=== PATIENT | male | born 1955 | race Caucasian/White ===

== ENCOUNTER 2024-10-15 17:08 | Inpatient (IN) | payer MEDICARE, MEDICAID, SELFPAY ==
[2024-10-15] VITALS (29 sets, daily range): BP systolic 54–137; BP diastolic 28–80; PULSE 47–66; RESP 11–22; TEMP 36.1–36.8; O2SAT 88–100; BMI 24.3
--- NOTE | 2024-10-15 17:10 | PD.EDWEAK ---
ED Weakness RME/HPI General Chief complaint: Weakness Stated complaint: WEAKNESS Time Seen by Provider: 10/15/24 17:29 Arrival date/time: 10/15/24 17:08 RME / HPI RME / HPI Narrative: 69 year old male with history of CAD, open heart surgery , hypertension, hyperlipidemia, asthma, BPH presents to the ED BIBA from home for evaluation of weakness today. Per medics, daughter on scene found patient to be very pale and weak. Patient additionally reported feeling short of breath and took two puffs of his Albuterol inhaler. On their arrival blood pressure was 58/20, prehospital BS 109. No radial pulses were palpable. An EKG was performed showing no STEMI. Per medics, daughter on scene reported the patient was evaluated at [facility] 5 days ago for head injury where he was admitted and signed out yesterday. Patient denies fevers, chills, chest pain, abdominal pain, n/v/d, or urinary symptoms. Related Data Home Medications ?Medication ?Instructions ?Recorded ?Confirmed alprazolam 1 mg tablet 2 mg PO TID ##0 12/26/13 08/18/23 carvedilol 3.125 mg tablet 3.125 mg PO BID 30 days ##0 12/26/13 08/18/23 dicyclomine 20 mg tablet (Bentyl) 10 mg PO QIDPRN #0 tabs 03/21/14 08/18/23 zolpidem 10 mg tablet 10 mg PO HS PRN Insomnia 12/16/17 08/18/23 montelukast 10 mg tablet 10 mg PO QDAY 04/13/19 08/18/23 atorvastatin 40 mg tablet (Lipitor) 40 mg PO QDAY 05/14/22 08/18/23 benazepril 40 mg tablet 40 mg PO BID 05/14/22 08/18/23 clopidogrel 75 mg tablet 75 mg PO DAILY 05/14/22 08/18/23 hydrocodone 10 mg-acetaminophen 1 tab PO QID 05/14/22 08/18/23 325 mg tablet pantoprazole 40 mg tablet,delayed 40 mg PO QDAY 05/14/22 08/18/23 release tizanidine 4 mg tablet 4 mg PO BID 05/14/22 08/18/23 gabapentin 300 mg capsule 300 mg PO BID 08/28/22 08/18/23 sumatriptan succinate 100 mg 100 mg PO Q2H PRN migraines 01/18/23 08/18/23 tablet (Imitrex) Previous Rx's ?Medication ?Instructions ?Recorded ipratropium 0.5 mg-albuterol 3 mg 3 ml inhalation Q6H PRN sob #180 mL 09/26/20 (2.5 mg base)/3 mL nebulization soln Allergies Allergy/AdvReac Type Severity Reaction Status Date / Time metoclopramide Allergy Mild Dizziness, Verified 08/18/23 12:04 FEELS WEIRD Review of Systems Review of Systems Narrative Review of Systems: GEN: No fever, no chills, no weight loss EYES: No discharge, no visual changes, no pain HEENT: No ear pain, no congestion, no sore throat PULM: + shortness of breath CV: No chest pain, no palpitations GI: No nausea, no vomiting, no diarrhea, no pain, no constipation : No frequency, no urgency and no dysuria MUSC/SKEL No joint pain, no back pain SKIN: No rash NEURO: +generalized weakness, no headache Past Medical History Past Medical History NEUROLOGIC: Positive Neurological Disorders, Migraine and Head Trauma CARDIAC: Positive Cardiac Disorders, Myocardial Infarction, Coronary Artery Disease, Hypercholesterolemia and Hypertension RESPIRATORY: Positive Asthma GASTROINTESTINAL: Positive Gastrointestinal Disorders and Hiatal Hernia MUSCULOSKELETAL: Positive Musculoskeletal Disorders and Degenerative Joint Disease ENT: Positive Head Trauma PSYCHO/SOCIAL: Positive Depression and Anxiety OTHER HISTORY: Positive Falls Family History FAMILY HISTORY: Positive Family Respiratory Disorders and Family Cardiac Disorders Surgical History SURGICAL: Positive Cardiac Surgery, Open Heart Surgery, Coronary Artery Bypass Graft, Coronary Stent, Cardiac Catheterization and Joint Replacement; Negative Thyroidectomy or Ear Surgery Social History SMOKING STATUS: Never smoker SUBSTANCE USE: does not use ED Exam Narrative Physical exam: GENERAL APPEARANCE: Well hydrated, well nourished. VITALS: Hypotensive 64/41. All vitals were reviewed and the pulse ox is 100% on 4L nasal cannula which is normal according to my interpretation. HEENT: Normocephalic, sutures on scalp, raccoon eyes, EOMI, EACs are patent. There is no bulge or retraction. Throat without erythema or exudate. Moist oromucosa. No jaundice NECK: Supple, no JVD or bruits. CARDIOVASCULAR: Heart regular without S3-S4 or murmur. No rubs or gallops. LUNGS/CHEST: Clear to auscultation bilaterally. No rales, rhonchi, or wheezing. Normal inspection. ABDOMEN: Soft, nontender, with normal bowel sounds. No pulsatile masses. No rebound, rigidity, or guarding. No incarcerated hernia. Normal inspection and palpation. RECTAL: Exam performed in presence of female nurses. Stool is brown and guaiac negative. EXTREMITIES: Normal inspection and palpation. No edema, clubbing, or cyanosis. Intact CSM SKIN: Warm and dry without rashes. Normal inspection. MUSCULOSKELETAL: Normal inspection. No gross deformity, full ROM all extremities NEURO: Alert and oriented x3. Cranial nerves II through XII grossly intact. There are no other motor or sensory deficits noted. PSYCHIATRIC: Normal mood and affect. No psychosis. Course Quality Measures none Orders Category Date Time Status Bedside COVID-19 Antigen Test NOW Care 10/15/24 18:11 Active Bedside Influenza A&B Antigen Test NOW Care 10/15/24 18:11 Active Ball [Urinary Catheter] QS Care 10/15/24 18:05 Active Saline [Insert IV] NOW Care 10/15/24 18:[address] head/brain wo con Stat Exams 10/15/24 18:11 Ordered XR chest 1V portable Stat Exams 10/15/24 17:32 Ordered ABO/RH Type Stat Lab 10/15/24 17:33 Ordered Alcohol, Blood Medical Stat Lab 10/15/24 17:33 Ordered BNP [B-Type Natriuretic Peptide] Stat Lab 10/15/24 17:33 Ordered Blood Culture (Lab) Stat Lab 10/15/24 17:34 Ordered CBC Stat Lab 10/15/24 17:33 Ordered CMP [Comprehensive Metabolic Panel] Stat Lab 10/15/24 17:33 Ordered Drug Screen,Urine Stat Lab 10/15/24 17:37 Completed Lactic Acid [Lactate (Lactic Acid)] Stat Lab 10/15/24 17:34 Ordered PT [Prothrombin Time with INR] Stat Lab 10/15/24 17:35 Ordered PTT [Partial Thromboplastin Time] Stat Lab 10/15/24 17:35 Ordered Procalcitonin Stat Lab 10/15/24 17:34 Ordered Troponin I Stat Lab 10/15/24 17:33 Ordered UA, C/S IF [Urinalysis, C/S if Indicated] Stat Lab 10/15/24 17:37 Completed Norepinephrine/D5W 8mg/250ml [Levophed in D5W 8mg/250ml Med 10/15/24 17:16 Discontinued ] 8 mg in 250 ml IV .STK-MED Norepinephrine/D5W 8mg/250ml [Levophed in D5W 8mg/250ml Med 10/15/24 17:23 Active ] 8 mg in 250 ml IV 0.05 mcg/kg/min Norepinephrine/NS 16mg/250ml [Levophed in NS 16mg/250ml Med 10/15/24 17:15 Discontinued ] 0 mg in 0 ml IV .STK-MED Sodium Chloride 0.9% 1000 ml [Ns] 1,000 ml Med 10/15/24 17:33 Active IV 999 mls/hr Vital Signs Vital signs: Vital Signs Pulse Rate 66 10/15/24 17:23 Respiratory Rate 16 10/15/24 17:23 Blood Pressure 64/41 L 10/15/24 17:23 Pulse Oximetry (%) 98 10/15/24 17:23 Oxygen Delivery Method Room Air 10/15/24 17:23 Weakness MDM Narrative MDM Narrative:: ICelia am scribing for and in the presence of Dr. Kemp. The patient came in with extremely low blood pressure. And we are giving the patient IV fluid. After 1 L of Ringer lactate and concurrently with Levophed drip, the blood pressure at 6 PM was 116/63, O2 saturation of 91% on 4 L nasal cannula and the patient comfortably laying flat. With a heart rate of about 80 bpm normal sinus rhythm on the monitor. 6 PM still pending labs, chest x-ray, EKG, paperwork information from [facility], and the patient responded to treatment, the patient is stable, improved and is signed out to Dr. Potter 1800: Patient signed out to Dr. Potter pending labs, cxr, and final disposition. Critical care time is approximately 35 minutes excluding any procedure. The high probability of sudden, clinically significant deterioration in the patient?s condition required the highest level of my preparedness to intervene urgently. The services I provided to this patient were to treat and/or prevent clinically significant deterioration. Services included the following: chart data review, reviewing nursing notes and/or old charts, documentation time, eco industrial development consultant collaboration regarding findings and treatment options, medication orders and management, direct patient care, vital sign assessments and ordering, interpreting and reviewing diagnostic studies and lab tests. Aggregate critical care time includes only time during which I was engaged in work directly related to the patient?s care, as described above, whether at bedside or elsewhere in the Emergency Department. It did not include time spent performing other reported procedures or the services of residents, students, nurses or physician assistants. Patient data External records reviewed:: [facility] previous records (I reviewed H&P on 08/18/2023 ) and EMS form Clinical information provided by:: patient and EMS (Provided prehospital course ) Social determinants that could affect healthcare access:: none Patient has the following chronic illnesses:: Recent head injury and admitted at [facility] 5 days ago and discharged yesterday. CAD, open heart surgery , hypertension, hyperlipidemia, asthma, BPH How is presenting disease/condition affected by chronic disease/condition?: exacerbated by Evaluation data The following diagnostics were reviewed and interpreted by me:: lab results and radiology exam(s) Lab and/or radiology exams considered but not ordered:: None Interpretation Summary: As noted above Medications / Prescriptions Medications or Prescriptions considered but not ordered:: None Medication administrations:: Medication Administration History Norepinephrine/Dextrose (Levophed In D5w 8mg/250ml) 8 mg in 250 mls @ 6.818 mls/hr IV .Q24H PRN; Protocol PRN Reason: PER PROTOCOL Stop: 11/14/24 17:22 Last Titration: 10/15/24 17:45 Dose: 0.13 mcg/kg/min, 17.726 mls/hr Documented By: Titration: 10/15/24 17:40 Dose: 0.11 mcg/kg/min, 14.999 mls/hr Documented By: Titration: 10/15/24 17:35 Dose: 0.09 mcg/kg/min, 12.272 mls/hr Documented By: Titration: 10/15/24 17:30 Dose: 0.07 mcg/kg/min, 9.545 mls/hr Documented By: Admin: 10/15/24 17:25 Dose: 0.05 mcg/kg/min, 6.818 mls/hr Documented By: Sodium Chloride (Ns) 1,000 mls @ 999 mls/hr IV .Q1H1M ONE Stop: 10/15/24 18:33 Last Infusion: 10/15/24 18:08 Dose: 0 mls/hr Documented By: Admin: 10/15/24 17:56 Dose: 999 mls/hr Documented By: VANESSA Discontinued Medications Norepinephrine Bitartrate (Levophed In Ns 16mg/250ml) Confirm Administered Dose 0 mg in 0 mls @ ud IV .STK-MED ONE Stop: 10/15/24 17:16 Last Admin: 10/15/24 17:35 Dose: Not Given Documented By: VANESSA Non-Admin Reason: Duplicate Medication on eMAR Norepinephrine/Dextrose (Levophed In D5w 8mg/250ml) Confirm Administered Dose 8 mg in 250 mls @ ud IV .STK-MED ONE Stop: 10/15/24 17:17 Last Admin: 10/15/24 17:35 Dose: Not Given Documented By: VANESSA Non-Admin Reason: Duplicate Medication on eMAR See above Consultations Consultation(s) initiated? (list below): No Diagnosis Weakness Differential Diagnosis: anemia, hypoglycemia, hypothyroidism, sepsis and dehydration Most likely diagnosis given after review of the tests above:: Acute hypertension Recent head trauma Admission Indicated Admission indicated?: not indicated Explain why admission is indicated or not indicated:: Patient signed out pending work-up. Admission Request Was there a request for admission?: No Disposition Plan Disposition Plan: other (specify) (Patient signed out to Dr. Potter. ) Discharge Plan Plan Disposition Comment: Stable at signout Prescriptions/Referrals Prescriptions/Med Rec: No Action alprazolam 1 MG tablet 2 mg PO TID Qty: 0 Hold Instructions: Resume on 08/19/23. carvedilol 3.125 MG tablet 3.125 mg PO BID 30 Days Qty: 0 dicyclomine [Bentyl] 20 MG tablet 10 mg PO QIDPRN Qty: 0 zolpidem 10 mg Tablet 10 mg PO HS PRN (Reason: Insomnia) Hold Instructions: Resume on 08/19/23. ipratropium-albuterol 0.5 mg-3 mg(2.5 mg base)/3 mL solution for nebulization 3 ml inhalation Q6H PRN (Reason: sob) Qty: 180 0RF benazepril 40 mg tablet 40 mg PO BID Patient Comments: TAKE ONE TABLET BY MOUTH TWICE DAILY FOR BLOOD PRESSURE atorvastatin [Lipitor] 40 mg Tablet 40 mg PO QDAY tizanidine 4 mg tablet 4 mg PO BID Hold Instructions: Resume on 01/19/23. Patient Comments: TAKE ONE TABLET BY MOUTH TWICE DAILY NEEDED FOR MUSCLE SPASM clopidogrel 75 mg tablet 75 mg PO DAILY Hold Instructions: Resume on 08/29/22. Patient Comments: TAKE ONE TABLET BY MOUTH EVERY DAY hydrocodone-acetaminophen 10-325 mg tablet 1 tab PO QID Hold Instructions: Resume on 08/19/23. Patient Comments: TAKE ONE TABLET BY MOUTH EVERY 6 HOURS NEEDED FOR PAIN pantoprazole 40 mg Tablet,Delayed Release (Dr/Ec) 40 mg PO QDAY montelukast 10 mg Tablet 10 mg PO QDAY gabapentin 300 mg capsule 300 mg PO BID Patient Comments: TAKE ONE CAPSULE BY MOUTH TWICE DAILY sumatriptan succinate [Imitrex] 100 mg Tablet 100 mg PO Q2H PRN (Reason: migraines) Rx Instructions: do not exceed 2 doses per 24 hrs Problem List Clinical Impression: Acute hypotension Patient/Caregiver Discharge Instructions Print Language: Macedonian
[2024-10-15] MEDS: Norepinephrine/D5W 8mg/250ml 8 MG/250 ML BAG 6.818 MG IV (17:25)
--- NOTE | 2024-10-15 17:32 | XR_ITS ---
Examination: AP portable semiupright chest single view Technique one AP portable semiupright chest single view Exam date and time: October 15, 2024 1808 hrs. Comparison May 15, 2024 Indications: Shortness of breath today Findings: Normal heart size CABG No pneumonia or pulmonary edema Accentuation basilar bronchovascular markings Impression: Mild basilar bronchitis pattern
[2024-10-15] MEDS: SODIUM CHLORIDE 0.9% 1000 ML 1,000 ML 999 ML IV (17:56)
--- NOTE | 2024-10-15 17:58 | PC.NURSE ---
PATIENT ARRIVE ED WITH COMPLAINT OF GENERALIZED WEAKNESS, PER FAMILY PATIENT WAS AT [facility] YESTERDAY SECONDARY TO DOOR FALLING ON HEAD, PATIENT PRESENTS WITH CIRILO AND LARGE LACERATION TO TOP OF RIGHT SIDE OF HEAD. PATIENT WITH BRUISING AND BLACK EYES SECONDARY TO INJURY. PATIENT ALERT AND ORIENTED AT TIME OF ARRIVAL, ABLE TO ANSWER APPROPRIATE QUESTIONS. DR. NAJERA AT BEDSIDE.
[2024-10-15 18:10] LABS: Amphetamine/Methamp Scrn,U Negative (Negative); Barbiturate Screen,Urine Negative (Negative); Benzodiazepines Screen,Urine Positive (Negative); Benzoylecgonine Screen, Ur Negative (Negative); Fentanyl Screen,Urine Positive (Negative); Opiate Screen,Urine Positive (Negative); THC Screen,Urine Negative (Negative)
--- NOTE | 2024-10-15 18:10 | EDNOTE_ITS ---
Emergency Room Addendum <Miri Groves - Last Filed: 10/15/24 20:37> Addendum Narrative: 1800: Care assumed from Dr. Kemp the previous shift emergency physician. Past medical, surgical, social and family history reviewed. Vitals and home medications reviewed. Results and treatment plan discussed. I will assume the care of the patient at this time and will follow the patient, pending work-up. Please refer to the emergency department record for history and examination from initial visit. I reviewed all diagnostic test results. My interpretation of the EKG is My interpretation of the chest x-ray is My review of the CT reports are Blood tests and urine tests At this point, diagnoses include Treatment here included 2027: Spoke with Dr. Reyes, neurosurgeon from [facility], who states the patient does not need to be transferred, as they will not perform any interventions. Recommends placing a patient in a brace. 2033: Discussed case with [Dr. Leon, the ICU resident] from Hospitalist service regarding admission. Discussed patients ED course, exam findings, labs, and radiology results. The Hospitalist [agrees] to accept the patient for admission. Lauri Potter MD <Lauri Potter MD - Last Filed: 10/15/24 21:12> Addendum Narrative: 1800: Care assumed from Dr. Kemp the previous shift emergency physician. Past medical, surgical, social and family history reviewed. Vitals and home medications reviewed. Results and treatment plan discussed. I will assume the care of the patient at this time and will follow the patient, pending work-up. Please refer to the emergency department record for history and examination from initial visit. I reviewed all diagnostic test results. At this point, diagnoses include: Hypotension needing Levophed, acute respiratory failure with hypoxia, T1/T2/T6 and L1/L2 vertebral fractures, severe anemia, scalp laceration, facial contusion, and elevated lactic acid. Treatment here included IV fluid and Levophed drip and Rocephin and famotidine and Protonix and octreotide. 2027: Spoke with Dr. Reyes, neurosurgeon from [facility], who states the patient does not need to be transferred, as they will not perform any interventions. Re commends placing a patient in a brace. Patient already has the brace. Daughter will bring it from home. 2033: Discussed case with [Dr. Leon, the ICU resident] from ICU service regarding admission. Discussed patients ED course, exam findings, labs, and radiology results. The ICU [agrees] to accept the patient for admission. Lauri Potter MD
--- NOTE | 2024-10-15 18:11 | XR_ITS ---
Examination: CT abdomen with intravenous contrast CT pelvis with intravenous contrast 2-D coronal reconstructions 2-D sagittal reconstructions Date and time of exam:October 15, 2024 1835 hrs. Indications: Injury to the abdomen today, abdomen pain. CTDI: vol (mGy) 14.3 DLP: (mGycm) 887 Technique: Multiple axial sections of the abdomen and pelvis have been obtained. 64 slice high-resolution scanner used. 3 mm axial sections have been obtained, post intravenous injection 100 cc Isovue-370 2-D sagittal, coronal reconstructions obtained. Low dose protocols were performed. One or more of the following dose reduction techniques were used; automated exposure control, adjustment of the mA and/or KV according to patient size, use of iterative reconstruction technique. Findings: No focal liver or splenic or renal laceration Cholelithiasis Aorta intact no free blood in the abdomen Negative for pneumoperitoneum No bowel obstruction Colonic diverticulosis Urinary bladder intact with wall thickening hips, bones of the pelvis intact Fracture left transverse process L2 Acute appearing compression fracture L1, reduction in height 60% Impression: No abdominal parenchymal laceration No free blood in the abdomen or pelvis Fracture left transverse process L2 Acute appearing severe compression fracture L1 with adequate alignment
--- NOTE | 2024-10-15 18:12 | EKG_ITS ---
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
--- NOTE | 2024-10-15 18:12 | XR_ITS ---
Examination: CT cervical spine without contrast 2-D sagittal reconstructions 2-D coronal reconstructions 3-D reconstructions. Exam date and time:October 15, 2024 1830 hrs. Comparison April 06, 2023 Indications: Injury to the neck today with a large tumor, neck pain CTDI:vol (mGy) 12.46 DLP: (mGycm) 311 Technique: Multiple 2 mm axial sections of the cervical spine have been obtained. The coronal and sagittal reconstructions have been obtained. 3-D reconstructions have been obtained. Low dose protocols were performed. One or more of the following dose reduction techniques were used; automated exposure control, adjustment of the mA and/or KV according to patient size, use of iterative reconstruction technique. Findings: Axial sections demonstrate intact base of the skull. C1 exhibit satisfactory relationship to the odontoid. No acute cervical vertebral body fracture seen. Alignment posterior spinous processes satisfactory Acute fractures T1, T2, chip fractures off the anterior superior margins both vertebral bodies Retropulsion of the posterior superior margin of the T1 vertebral body 2 mm Incidental note 21 mm cavitary lesion in the right upper lobe Impression: No acute cervical fracture. Acute fractures mild to moderate T1, mild T2 Retropulsion posterior superior margin of the T1 vertebral body [address] scan thoracic spine without contrast follow-up
--- NOTE | 2024-10-15 18:12 | XR_ITS ---
Examination: CTA chest with intravenous contrast 2-D reconstructions 3-D reconstructions, vascular Date and time of exam: October 15, 2024 1835 hrs. Indications: Injury to the chest 5 days ago, chest pain CTDI: vol (mGy) 28.7 DLP: (mGycm) 587 Technique: Multiple axial sections of the thorax have been obtained. 3 mm slice thickness, from below the hemidiaphragms to above the apices of the lungs. Mediastinal and lung density settings have been obtained. 2-D sagittal and coronal reconstructions. 3-D angiographic renderings, 3-D volume renderings, 3D post processing, vascular maximum intensity projections obtained. Contrast administered is 100 cc Isovue-370. Low dose protocols were performed. One or more of the following dose reduction techniques were used; automated exposure control, adjustment of the mA and/or KV according to patient size, use of iterative reconstruction technique. Findings: AP dimension ascending thoracic aorta 4 cm, thoracic aorta intact No pulmonary artery emboli No hemopericardium COPD with multiple areas of airspace destruction Multiloculated cavitary lesion in the right upper lobe 26 mm No pneumothorax pulmonary contusion or hemothorax Acute fractures T1, T2 described on the CT cervical spine report Acute fracture T6, reduction in height 40% adequate alignment Chronic fracture T8, sternum ribs appear intact Impression: Mild aneurysmal dilatation ascending thoracic aorta Thoracic aorta pulmonary arteries intact No hemopericardium, pneumothorax or pulmonary contusion Acute fractures T1, T2, T6 as above
--- NOTE | 2024-10-15 18:12 | XR_ITS ---
Examination: CT maxillofacial, without intravenous contrast. 2-D sagittal reconstructions. 3-D reconstructions. Date and time of exam:October 15, 2024 1828 hrs. Indications: A large door fell on the patient's face today, facial pain CTDI: vol (mGy):34.40 DLP: (mGycm):764 Technique: Multiple axial images of maxillofacial region, 3.0 mm slice thickness. 2-D sagittal and coronal reconstructions. 3-D reconstructions. Low dose protocols were performed. One or more of the following dose reduction techniques were used; automated exposure control, adjustment of the mA and/or KV according to patient size, use of iterative reconstruction technique. Findings: Frontal bone frontal sinuses intact Orbital rims intact No depression zygomatic arches Pterygoid plates maxilla and the mandible intact No nasal bone fracture Impression: No acute facial fracture.
--- NOTE | 2024-10-15 18:12 | XR_ITS ---
Examination: CT brain head without contrast. 2-D sagittal coronal reconstructions Date and time of exam:October 15, 2024 1826 hrs. Comparison April 06, 2023 Indications: A large door fell on the patient's head 5 days ago, with persistent head pain and altered mental status today CTDI: vol (mGy):56.2 DLP: (mGycm):1172 Technique: Multiple CT axial sections of the brain have been obtained, 5 mm slice thickness. Contrast has not been administered. 2-D sagittal, coronal reconstructions have been obtained Low dose protocols were performed. One or more of the following dose reduction techniques were used; automated exposure control, adjustment of the mA and/or KV according to patient size, use of iterative reconstruction technique. Findings: No significant ventricular enlargement. Intra-axial or extra-axial hemorrhage density is not seen. No mass effect or midline shift Basal cisterns are not remarkable. Fourth ventricle is midline. Cranial vault intact. Impression: Negative for acute hemorrhage, mass effect or midline shift
[2024-10-15 18:15] LABS: Lactate (Lactic Acid) 2.2 mMol/L (0.4-2.0)
[2024-10-15 18:16] LABS: Basophils # (Auto) 0.1 Thou/mm3 (0.0-0.2); Basophils % (Auto) 1 % (0-2.5); Eosinophils # (Auto) 0.5 Thou/mm3 (0.0-0.5); Eosinophils % (Auto) 3 % (0-10); Lymphocytes % (Auto) 12 % (10-50); Mean Corpuscular Volume 88 fL (80-100); Monocytes % (Auto) 10 % (0-12); Nucleated Red Blood Cell % 0 /100 WBC (0)
[2024-10-15 18:17] LABS: Hematocrit 25.1 % (41.0-53.0); Immature Granulocytes % (Auto) 2 % (0-0); Immature Granulocytes Auto 0.22 Thou/mm3 (0.00-0.00); Lymphocytes # (Auto) 1.6 Thou/mm3 (1.0-4.8); Mean Corpuscular HGB Conc 33.1 g/dl (31.0-37.0); Monocytes # (Auto) 1.3 Thou/mm3 (0.0-0.8); Neutrophils # (Auto) 9.7 Thou/mm3 (1.8-7.7); Neutrophils % (Auto) 73 % (37-80); Nucleated Red Blood Cell # 0.05 Thou/mm3 (0.00-0.00); Platelet Count 245 Thou/mm3 (140-440); RDW Standard Deviation 47.1 fL (35.1-43.9); Red Blood Count 2.86 Miln/mm3 (4.50-5.90); White Blood Count 13.4 Thou/mm3 (3.8-10.6)
[2024-10-15 18:18] LABS: Hemoglobin 8.3 g/dL (13.5-16.0)
[2024-10-15 18:38] LABS: B-Type Natriuretic Peptide 44 pg/mL (0-100)
[2024-10-15 18:47] LABS: Alanine Aminotransferase 215 U/L (10-49); Albumin, Serum 3.4 gm/dL (3.4-4.8); Albumin/Globulin Ratio 1.9 (1.2-2.2); Alcohol, Blood Medical < 10.0 mg/dL (0-10.0); Alkaline Phosphatase 50 U/L (46-116); Anion Gap 9 (7-16); Aspartate Amino Transferase 74 U/L (0-34); BUN/Creatinine Ratio 19 Ratio (12-20); Bilirubin,Total 0.8 mg/dL (0.3-1.2); Blood Urea Nitrogen 42 mg/dL (9-23); Calcium (Corrected) 8.5 mg/dL (8.5-10.1); Carbon Dioxide 20.7 mMol/L (20.0-31.0); Chloride 103 mMol/L (98-107); Creatinine (Component) 2.2 mg/dL (0.6-1.3); Estimated Creatinine Clearance 30.2 mL/min (>60); Globulin 1.8 gm/dL (2.3-3.5); Glucose 104 mg/dL (74-106); Osmolality,Calculated 276 (275-295); Potassium 4.3 mMol/L (3.4-5.1); Procalcitonin 0.37 ng/ml (0.0-0.49); Sodium 133 mMol/L (136-145); Total Protein 5.2 gm/dL (5.7-8.2); Troponin I < 0.020 ng/mL (0.0-0.045); eGFR 31 See Note
[2024-10-15 18:56] LABS: INR 1.2 (0.9-1.3); Partial Thromboplastin Time 22.5 Seconds (22.0-36.0); Prothrombin Time 12.7 Seconds (9.0-12.2)
[2024-10-15 18:58] LABS: D-Dimer 1890 ng/mL (<600)
[2024-10-15 19:05] LABS: Base Excess -2 (-3-3); HCO3 23 mEq/L (20-26); Inspired O2, VO2 Liters 5 L/min; O2 Saturation 99 % (91-98); PCO2 37 mmHg (32.0-48.0); PO2 106 mmHg (83-108); pH, Arterial 7.39 (7.35-7.45)
[2024-10-15 19:10] LABS: Allen Test Performed/OK; Puncture Site Right Radial
--- NOTE | 2024-10-15 20:17 | PC.NURSE ---
[facility] FAXED PAPERWORK FOR POSSIBLE TRANSFER, SPOKE WITH JOSHUA
[2024-10-15 21:11] LABS: Reflex Lactate? Y
[2024-10-15] MEDS: ONDANSETRON INJ 2 MG/ML INJ 2 ML 4 MG IV (21:14)
[2024-10-15] MEDS: MORPHINE SULF INJ 10 MG/ML VIAL 4 MG IVP (21:21)
[2024-10-15 21:33] LABS: Respiratory Syncytial Virus Ag Negative (Negative)
[2024-10-15] MEDS: FAMOTIDINE INJ 10 MG/ML VIAL 2 ML 20 MG IVP (21:37)
[2024-10-15] MEDS: cefTRIAXone/D5w 1gm IV premix 50 ML IV (21:37)
[2024-10-15] MEDS: PANTOPRAZOLE INJ 40 MG VIAL 80 MG IV (21:48)
[2024-10-15] MEDS: OCTREOTIDE ACET INJ 50 mCg/ML VIAL IV (21:58)
[2024-10-15] MEDS: OCTREOTIDE ACET INJ 1,000 MCG in SODIUM CHLORIDE 0.9% 100 ML 5.1 MCG IV (21:58)
[2024-10-15 22:12] LABS: Influenza A Ag Negative; Influenza B Ag Negative
[2024-10-16] VITALS (49 sets, daily range): BP systolic 107–158; BP diastolic 58–91; PULSE 52–78; RESP 9–22; TEMP 36.7–37.2; O2SAT 78–100; BMI 22.3
[2024-10-16] MEDS: ALPRazoLAM 0.25 MG TABLET PO
[2024-10-16] MEDS: RINGERS LACTATED 1000 ML 1,000 ML 999 ML IV (00:06)
[2024-10-16 00:07] LABS: Lactic Acid, 3 HR 4.4 mMol/L (0.4-2.0)
[2024-10-16] MEDS: CEFEPIME INJ 2 GM in SODIUM CHLORIDE 0.9% (P) 50 ML IV ×2 (00:07→09:10)
--- NOTE | 2024-10-16 00:07 | ESHP_ITS ---
<Statement entered by Frankie Myrick MD - 10/16/24 22:16> I Frankie Myrick MD reviewed the note and agree with the resident's assessment & plan with exceptions as below. I have personally reviewed labs, imaging, home meds/prior records, examined the patient, formulated and discussed management plan with the IM team. 69-year-old M with Hx of CAD, metabolic syndrome, asthma, head injury a week ago admitted at [facility] and was discharged to a SNF presented to ED with progressively worsening shortness of breath and generalized weakness. Patient noted to be hypertensive on presentation labs significant for leukocytosis, microcytic anemia, elevated creatinine and lactic acidosis with transaminitis. Further imaging did reveal T1-T2 fracture and cavitary lung lesion. Admitted for potential septic shock due to pneumonia with concern for fungal/TB. Obtaining sputum AFB, cocci serology, beta D glucan, respiratory and blood cultures, fungal blood cultures, echocardiogram. Will start on empiric antibiotic and antifungal with cefepime and doxycycline along with fluconazole for potential coccidioidomycosis. Patient does not have any trouble swallowing, chest pain or abdominal pain. Conservatively manage T1-T2 fracture likely harbored during recent fall with head injury. Obtain medical records from [facility]. Administer 30 mL/kg IV fluids, continue vasopressor support trending lactate. Documentation for date of: 10/16/24 HPI History of Present Illness History of present illness: 69-year-old man with past medical history of CAD status post CABG , HTN, HDL, asthma, BPH who came to the ED brought by ambulance secondary to weakness. Patient is poor historian for which formation was taken per chart review her nurse at the ED. Apparently per patient daughter today in the afternoon the patient was pale, diaphoretic, complaining of shortness of breath and complaining of generalized weakness for which they decided to come to the ED. Per patient daughter patient was admitted to [facility] 5 days ago secondary to a head injury and was discharged yesterday and at the hospital he received multiple blood transfusions due to severe bleeding from the scalp. At the bedside patient denied fever chills, chest pain, headache, nausea, vomiting, dysuria, cough or any other associated symptom at the moment he only stated that he needs to take his benzodiazepines because if he does not take it he will have seizures. ED course: Initial vitals: BP 64/41 HR 66 RR 16 afebrile SpO2 98% on room air Pertinent labs: Leukocytosis 13.4, acute normocytic anemia Hgb 8.3 HCT 25.1%, ABGs were unremarkable, creatinine 2.2, BUN 42, lactic acid 2.2, D-dimer was elevated 1890, transaminitis AST 74 ALT 215, alk phos with a normal limits, troponins were negative BNP 44, Pro-Pillo 0.37, U tox was positive for opiates fentanyl and benzodiazepines. Imaging: Chest x-ray showed mild basilar bronchitis pattern, CT abdomen pelvis showed fracture of left transverse process of L2 as well as acute appearing severe compression fracture of L1 with adequate alignment, cervical spine CT showed acute fractures mild to moderate T1-T2, retropulsion posterior superior margin of T1 vertebral body 2 mm, Chest CTA showed multiloculated cavitary lesions in the right upper lobe 26 mm negative for pulmonary emboli, acute fracture of T1, T2, T6 with reduction in 40% with adequate alignment and chronic fracture of T8, mild aneurysmal dilation of ascending thoracic aorta, face CT negative, head CT was negative for acute hemorrhage, mass or midline shift, EKG sinus rhythm heart rate 61 [address]Tc [address] changes or T wave inversions per my interpretation At the ED the patient received: IV octreotide, Levophed gtt, IV Protonix 80 mg x 1, 1 L bolus NS x 1, IV morphine 4 mg IV x 1, famotidine 20 mg IV x 1, octreotide drip, IV ceftriaxone x 1, ED physician contacted neurosurgeon at [facility] due to findings in the CT related to T1-T2 and T6 fractures for transfer and they stated that the patient at this time does not need to be transferred and they would not perform any interventions and they recommended to place the patient in a brace for which family member daughter will bring him to the ED. Patient was admitted to the ICU for further treatment and management of septic shock. Review of Systems Review of Systems Systems Reviewed: All systems reviewed, normal except as documented Past Medical History Past Medical History NEUROLOGIC: Positive Neurological Disorders, Migraine and Head Trauma CARDIAC: Positive Cardiac Disorders, Myocardial Infarction, Coronary Artery Disease, Hypercholesterolemia and Hypertension RESPIRATORY: Positive Asthma GASTROINTESTINAL: Positive Gastrointestinal Disorders and Hiatal Hernia MUSCULOSKELETAL: Positive Musculoskeletal Disorders and Degenerative Joint Disease ENT: Positive Head Trauma PSYCHO/SOCIAL: Positive Depression and Anxiety OTHER HISTORY: Positive Falls Family History FAMILY HISTORY: Positive Family Respiratory Disorders and Family Cardiac Disorders Surgical History SURGICAL: Positive Cardiac Surgery, Open Heart Surgery, Coronary Artery Bypass Graft, Coronary Stent, Cardiac Catheterization and Joint Replacement; Negative Thyroidectomy or Ear Surgery Social History SMOKING STATUS: Never smoker SUBSTANCE USE: does not use Exam Vital Signs Temp Pulse Resp BP Pulse Ox O2 Del Method O2 Flow Rate 98.2 F 60 16 97/72 100 Nasal Cannula 4 10/15/24 22:02 10/15/24 23:18 10/15/24 23:18 10/15/24 23:18 10/15/24 23:18 10/15/24 23:18 10/15/24 23:18 Narrative Exam General: No acute distress, dishevel, alert, interactive, AOx3, saturating 100% on 4 L per nasal cannula HEENT: NC/AT, PERRL, EOMI, Good conjugate gaze, dry mucous membranes, multiple bruises on periorbital and facial area scalp laceration with krunal on the right temporoparietal region Neck: Supple, No masses, No adenopathy, carotid pulse 2+ bilaterally without bruits, No JVD Chest: Symmetrical, atraumatic, and with equal expansion , Nontender on palpation no deformity and no crepitus. CVS: S1 and S2 present, Regular rate and rhythm, No murmurs, rubs or gallops perceived during auscultation. Lungs: Normal respiratory effort, CTAB, no wheezing, rhonchi or rales perceived during auscultation, No intercostal or subcostal retraction. Abdomen : Soft, no tenderness to palpation, no guarding ,no rebound, +BS Extremities: No edema, warm well perfused, normal tone and ROM, strength and sensation intact, cap refill less than 2, +2 dp equal bilaterally, able to move all 4 extremities spontaneously. Skin: Multiple ecchymosis on bilateral upper extremities, bruises on periorbital and facial area as well as scalp laceration with krunal, no erythema or jaundice noted Neuro: AOx3, no focal neurologic deficits noted, GCS 15 Psych: Appropriate mood and affect. Results: Labs 10/16/24 00:32 10/15/24 17:46 Labs: Short CBC 10/15/24 Range/Units 17:46 WBC 13.4 H (3.8-10.6) Thou/mm3 Hgb 8.3 L (13.5-16.0) g/dL Hct 25.1 L (41.0-53.0) % Plt Count 245 (140-440) Thou/mm3 BMP 10/15/24 17:46 Sodium 133 L Potassium 4.3 Chloride 103 Carbon Dioxide 20.7 BUN 42 H Creatinine 2.2 H Glucose 104 Calcium 8.0 L Cardiac Enzymes 10/15/24 Range/Units 17:46 Troponin I < 0.020 (0.0-0.045) ng/mL Liver Function 10/15/24 Range/Units 17:46 Total Bilirubin 0.8 (0.3-1.2) mg/dL AST 74 H (0-34) U/L ALT 215 H (10-49) U/L Alkaline Phosphatase 50 (46-116) U/L Albumin 3.4 (3.4-4.8) gm/dL Urine 10/15/24 Range/Units 17:37 Urine Color Cancelled Urine Clarity Cancelled Urine pH Cancelled Ur Specific [place] Cancelled Urine Protein Cancelled Urine Glucose (UA) Cancelled ABG Interpretation ABG results: 10/15/24 19:01 ABG pH 7.39 ABG pCO2 37 ABG pO2 106 ABG HCO3 23 ABG O2 Saturation 99 H ABG Base Excess -2 Quality Measures Quality Measures none Advance care planning discussed with:: patient Medications Home Medications and Allergies Home Medications ?Medication ?Instructions ?Recorded ?Confirmed ?Type alprazolam 1 mg tablet 2 mg PO TID ##0 12/26/13 10/15/24 History carvedilol 3.125 mg tablet 3.125 mg PO BID 30 days ##0 12/26/13 10/15/24 History montelukast 10 mg tablet 10 mg PO QPM 04/13/19 10/15/24 History atorvastatin 40 mg tablet (Lipitor) 40 mg PO QPM 05/14/22 10/15/24 History benazepril 40 mg tablet 40 mg PO BID 05/14/22 10/15/24 History clopidogrel 75 mg tablet 75 mg PO DAILY 05/14/22 10/15/24 History hydrocodone 10 mg-acetaminophen 1 tab PO QID PRN Pain 05/14/22 10/15/24 History 325 mg tablet pantoprazole 40 mg tablet,delayed 40 mg PO BID 05/14/22 10/15/24 History release tizanidine 4 mg tablet 4 mg PO BID PRN Spasms 05/14/22 10/15/24 History gabapentin 300 mg capsule 300 mg PO BID 08/28/22 10/15/24 History sumatriptan succinate 100 mg 100 mg PO Q2H PRN migraines 01/18/23 10/15/24 History tablet (Imitrex) albuterol sulfate 90 mcg/actuation 1 puff inhalation Q6H PRN Wheezing 10/15/24 10/15/24 History aerosol inhaler fenofibrate nanocrystallized 145 145 mg PO QAM 10/15/24 10/15/24 History mg tablet fluticasone furoate 200 1 inh inhalation QDAY 10/15/24 10/16/24 History mcg/actuation blister powder for inhalation (Arnuity Ellipta) ketoconazole 2 % shampoo 1 applic topical Q OTHER DAY PRN 10/15/24 10/15/24 History Dry Skin Allergies Allergy/AdvReac Type Severity Reaction Status Date / Time metoclopramide Allergy Mild Dizziness, Verified 08/18/23 12:04 FEELS WEIRD Visit Medications Acetaminophen (Acetaminophen 325 Mg Tablet) 650 mg PO Q4HR PRN PRN Reason: PAIN SCALE 1-3 (mild Stop: 11/14/24 23:01 Norepinephrine/Dextrose (Levophed In D5w 8mg/250ml) 8 mg in 250 mls @ 6.818 mls/hr IV .Q24H PRN; Protocol PRN Reason: PER PROTOCOL Stop: 11/14/24 17:22 Last Titration: 10/15/24 23:50 Dose: 0.13 mcg/kg/min, 17.726 mls/hr Octreotide Acetate 1,000 mcg/ (Sodium Chloride) 102 mls @ 5.1 mls/hr IV .Q20H ONE; Protocol Stop: 10/16/24 17:00 Last Admin: 10/15/24 21:58 Dose: 50 mcg/hr, 5.1 mls/hr Fluconazole (Diflucan/Ns Ivpb) 400 mg in 200 mls @ 100 mls/hr IV QDAY SENG Stop: 10/22/24 23:15 Fluconazole (Diflucan/Ns Ivpb) 400 mg in 200 mls @ 100 mls/hr IV X1 ONE Stop: 10/16/24 01:24 Doxycycline Hyclate 200 mg/ (Sodium Chloride) 250 mls @ 125 mls/hr IV X1 ONE Stop: 10/16/24 01:21 Doxycycline Hyclate 100 mg/ (Sodium Chloride) 100 mls @ 100 mls/hr IV BID SENG Stop: 10/23/24 08:59 Lactated Ringer's (Lactated Ringers) 1,000 mls @ 999 mls/hr IV .Q1H1M ONE Stop: 10/16/24 00:42 Pantoprazole Sodium (Pantoprazole Inj 40 Mg Vial) 40 mg IVP BID [facility] Stop: 11/15/24 08:59 Discontinued Medications Alprazolam (Alprazolam 0.25 Mg Tablet) 0.25 mg PO X1 ONE Stop: 10/15/24 23:21 Last Admin: 10/16/24 00:00 Dose: 0.25 mg Famotidine (Famotidine Inj 10 Mg/Ml Vial 2 Ml) 20 mg IVP X1 ONE Stop: 10/15/24 21:00 Last Admin: 10/15/24 21:37 Dose: 20 mg Sodium Chloride (Ns) 1,000 mls @ 999 mls/hr IV .Q1H1M ONE Stop: 10/15/24 18:33 Last Infusion: 10/15/24 18:08 Dose: 0 mls/hr Ceftriaxone Sodium/Dextrose (Rocephin/D5w 1gm Iv Premix) 50 mls @ 100 mls/hr IV X1 ONE Stop: 10/15/24 21:35 Last Infusion: 10/15/24 22:07 Dose: Infused Cefepime HCl 2 gm/ Sodium (Chloride) 50 mls @ 100 mls/hr IV X1 ONE Stop: 10/15/24 23:52 Morphine Sulfate (Morphine Sulf Inj 10 Mg/Ml Vial) 4 mg IVP X1 ONE Stop: 10/15/24 20:50 Last Admin: 10/15/24 21:21 Dose: 4 mg Octreotide Acetate (Octreotide Acet Inj 50 Mcg/Ml Vial) 50 mcg IV X1 ONE Stop: 10/15/24 21:01 Last Admin: 10/15/24 21:58 Dose: 50 mcg Ondansetron HCl (Ondansetron Inj 2 Mg/Ml Inj 2 Ml) 4 mg IV X1 ONE; Protocol Stop: 10/15/24 20:51 Last Admin: 10/15/24 21:14 Dose: 4 mg Pantoprazole Sodium (Pantoprazole Inj 40 Mg Vial) 80 mg IV X1 ONE Stop: 10/15/24 21:00 Last Admin: 10/15/24 21:48 Dose: 80 mg Sodium Chloride (Sodium Chloride Rt 10% 15 Ml Nebu) 5 ml INH X1 ONE Stop: 10/15/24 23:13 Assessment & Plan Plan 69-year-old man with past medical history of CAD status post CABG , HTN, HDL, asthma, BPH who came to the ED brought by ambulance secondary to weakness. Patient is poor historian for which formation was taken per chart review her nurse at the ED. Apparently per patient daughter today in the afternoon the patient was pale, diaphoretic, complaining of shortness of breath and complaining of generalized weakness for which they decided to come to the ED. Per patient daughter patient was admitted to [facility] 5 days ago secondary to a head injury and was discharged yesterday and at the hospital he received multiple blood transfusions due to severe bleeding from the scalp. At the bedside patient denied fever chills, chest pain, headache, nausea, vomiting, dysuria, cough or any other associated symptom at the moment he only stated that he needs to take his benzodiazepines because if he does not take it he will have seizures. ED course: Initial vitals: BP 64/41 HR 66 RR 16 afebrile SpO2 98% on room air Pertinent labs: Leukocytosis 13.4, acute normocytic anemia Hgb 8.3 HCT 25.1%, ABGs were unremarkable, creatinine 2.2, BUN 42, lactic acid 2.2, D-dimer was elevated 1890, transaminitis AST 74 ALT 215, alk phos with a normal limits, troponins were negative BNP 44, Pro-Pillo 0.37, U tox was positive for opiates fentanyl and benzodiazepines. Imaging: Chest x-ray showed mild basilar bronchitis pattern, CT abdomen pelvis showed fracture of left transverse process of L2 as well as acute appearing severe compression fracture of L1 with adequate alignment, cervical spine CT showed acute fractures mild to moderate T1-T2, retropulsion posterior superior margin of T1 vertebral body 2 mm, Chest CTA showed multiloculated cavitary lesions in the right upper lobe 26 mm negative for pulmonary emboli, acute fracture of T1, T2, T6 with reduction in 40% with adequate alignment and chronic fracture of T8, mild aneurysmal dilation of ascending thoracic aorta, face CT negative, head CT was negative for acute hemorrhage, mass or midline shift, EKG sinus rhythm heart rate 61 [address]Tc [address] changes or T wave inversions per my interpretation At the ED the patient received IV octreotide, Levophed gtt, IV Protonix 80 mg x 1, 1 L bolus NS x 1, IV morphine 4 mg IV x 1, famotidine 20 mg IV x 1, octreotide drip, IV ceftriaxone x 1, ED physician contacted neurosurgeon at [facility] due to findings in the CT related to T1-T2 and T6 fractures for transfer and they stated that the patient at this time does not need to be transferred and they would not perform any interventions and they recommended to place the patient in a brace for which family member daughter will bring him to the ED. Patient was admitted to the ICU for further treatment and management of septic shock. HEEL SCORER: Stable CVS: #Shock Most likely secondary to septic shock Patient was recently discharged from [facility] the day before admission secondary to a head injury Per family member daughter the patient received blood transfusions due to profuse bleeding at the scalp possibly contributory to Plavix in the setting of previous history of CABG On admission patient was hypotensive MAP below 65, he received at the ED 1 L bolus NS and blood pressure did not improve for which they started patient on Levophed gtt. ? Continue Levophed gtt. wean off as tolerated ? Trend lactic acid every 3 hours ? Follow-up CBC and CMP ? See ID as below #History of hypertension ? Hold home medications the setting of shock #History of CAD post CABG ? Hold home Plavix in the setting of shock PULM: #Acute hypoxic respiratory failure Possibly secondary to bacterial vs fungal? vs viral pneumonia? vs symptomatic anemia? Per patient daughter when paramedics arrived at scene he was complaining of weakness and shortness of breath Patient is not on home oxygen Patient was 4 liters oxygen per nasal cannula Chest x-ray showed mild bibasilar bronchitis, influenza, COVID and RSV were negative D-dimer was elevated otherwise CTA chest was negative for PE and was found to have multiloculated cavitary lesions in the right upper lobe 26 mm ? DuoNebs every 4 hours scheduled ? IV doxycycline 100 mg twice daily ? IV cefepime 2 g every 12 hours ? IV fluconazole 400 mg daily ? See ID as below #Multiloculated cavitary lesions Chest x-ray showed mild bibasilar bronchitis D-dimer was elevated otherwise CTA chest was negative for PE and was found to have multiloculated cavitary lesions in the right upper lobe 26 mm ? Pending to cocci serology ? Pending Aspergillus serology ? Pending AFBs sputum and QuantiFERON ? See ID as below #Hx of asthma ? Continue home medications when reconciled GI: #Transaminitis Most likely secondary to shock ? Hold home atorvastatin ? Follow-up CMP RENAL: #MATHIEU Most likely prerenal in setting of shock Creatinine 2.2 BUN 42 (baseline creatinine 1.0) - IV fluids LR at 100 cc/h - Strict ins and outs - Avoid nephrotoxic drugs - Renally dose medications - Follow-up CMP #Lactic acidosis Secondary to shock Lactic acid 2.2=>4.4=>2.6 ? IV fluids LR 100 cc/h ? Trend lactic acid every 3 hours ? Follow-up CMP ENDO: Stable HEME/ONC: #Acute normocytic anemia Possibly secondary to acute blood loss in the setting of scalp laceration vs acute GI bleed? Hemoglobin 8.3 HCT 35.2% (baseline hemoglobin 15) Per patient daughter at [facility] patient required transfusion due to profuse bleeding from scalp laceration patient take plavix due to past medical history of CAD status post CABG At the ED patient received octreotide gtt. per ED physician guaiac was positive otherwise per the ED note guaiac was negative Patient denied melena, hematochezia, hematemesis ? Type and screen ? Transfuse if hemoglobin less than 7 ? Follow-up CBC ID: #Septic shock Possibly secondary to bacterial pneumonia vs fungal? vs viral pneumonia? vs UTI vs head laceration? Patient met sepsis criteria with hypotension, leukocytosis and lactic acidosis Patient recently was admitted to [facility] secondary to fall and has a scalp laceration with krunal and could be source of infection Chest x-ray mild bibasilar bronchitis, influenza, COVID and RSV were negative CTA was found to have multiloculated cavitary lesions in the right upper lobe 26 mm UA showed 4+ bacteria no WBCs ? IV doxycycline 100 mg twice daily ? IV cefepime 2 g every 12 hours ? IV fluconazole 400 mg daily ? Follow-up blood and urine cultures ? Follow-up cocci IgG/IgM ? Follow-up Aspergillus serology ? Follow-up CBC and CMP MSK: #Acute thoracic fractures Patient recently had a head trauma secondary to fall and was admitted to [facility] for [address] showed acute fractures mild to moderate T1-T2, retropulsion posterior superior margin of T1 vertebral body 2 mm, Chest CTA showed acute fracture of T1, T2, T6 with reduction in 40% with adequate alignment and chronic fracture of T8, mild aneurysmal dilation of ascending thoracic aorta, face CT negative, head CT was negative for acute hemorrhage, mass or midline shift They consulted neurosurgeon at [facility] that he stated they do not require transfer because alterations can be done and patient will need to use a brace ? Continue home [place] every 6 hours ? Continue gabapentin p.o. twice daily ? IV morphine 2 mg every 4 hours as needed SKIN: #Scalp laceration Secondary to fall ? Continue to monitor closely FEN:NPO Lines: Peripheral DVT prophylaxis: SCDs GI prophylaxis: Protonix CODE STATUS: Full code Patient discussed with my attending Dr Ramez Leon MD PGY-3 Disclaimer: Despite multiple revisions, due to the dictation software being used, the document bellow may not be free of grammatical errors including phonetic/typographic errors. However, this does not deter from our commitment to providing health care in the patient's best interest in mind.
[2024-10-16 01:04] LABS: Hematocrit 35.2 % (41.0-53.0); Hemoglobin 11.4 g/dL (13.5-16.0)
--- NOTE | 2024-10-16 01:10 | PC.NURSE ---
PER DR. CHAPA TITRATE LEVOPHED DRIP DOWN
[2024-10-16] MEDS: DOXYCYCLINE INJ 200 MG in SODIUM CHLORIDE 0.9% 250 ML 250 ML 125 MG IV (01:19)
[2024-10-16] MEDS: SODIUM CHLORIDE RT 10% 15 ML NEBU 5 ML INH (02:13)
[2024-10-16 02:17] LABS: Lactate (Lactic Acid) 2.6 mMol/L (0.4-2.0)
[2024-10-16] MEDS: ALBUTEROL/IPRATROPIUM (Duoneb) RT SOL 3 ML NEBU INH ×4 (02:26→14:29)
--- NOTE | 2024-10-16 02:42 | PC.RT ---
Unable to obtain sputum culture for AFB even after sputum induction. Dr Leon notified. Per Dr. Leon, sputum culture for AFB to be reattempted once patient is moved to the floors. Patient is currently in the ER.
[2024-10-16] MEDS: MORPHINE SULF INJ 10 MG/ML VIAL 2 MG IVP ×4 (04:14→23:33)
[2024-10-16] MEDS: FLUCONAZOLE/NS 400 MG IVPB 400 MG/200 ML BAG 100 MG IV (04:28)
[2024-10-16] MEDS: RINGERS LACTATED 1000 ML 1,000 ML 100 ML IV (04:33)
[2024-10-16 05:13] LABS: Reflex Lactate? Y
[2024-10-16 08:00] LABS: Quantiferon-TB* See Sep Rpt
[2024-10-16 08:08] LABS: Lactic Acid, 3 HR 1.5 mMol/L (0.4-2.0)
[2024-10-16 08:36] LABS: Alanine Aminotransferase 219 U/L (10-49); Albumin, Serum 4.2 gm/dL (3.4-4.8); Albumin/Globulin Ratio 1.9 (1.2-2.2); Alkaline Phosphatase 58 U/L (46-116); Anion Gap 6 (7-16); Aspartate Amino Transferase 64 U/L (0-34); BUN/Creatinine Ratio 22 Ratio (12-20); Bilirubin,Total 0.8 mg/dL (0.3-1.2); Blood Urea Nitrogen 31 mg/dL (9-23); Calcium 8.4 mg/dL (8.3-10.6); Calcium (Corrected) 8.4 mg/dL (8.5-10.1); Carbon Dioxide 25.3 mMol/L (20.0-31.0); Chloride 103 mMol/L (98-107); Creatinine (Component) 1.4 mg/dL (0.6-1.3); Estimated Creatinine Clearance 47.5 mL/min (>60); Globulin 2.2 gm/dL (2.3-3.5); Glucose 87 mg/dL (74-106); Osmolality,Calculated 273 (275-295); Phosphorous 2.8 mg/dL (2.4-5.1); Potassium 4.3 mMol/L (3.4-5.1); Sodium 134 mMol/L (136-145); Total Protein 6.4 gm/dL (5.7-8.2); eGFR 54 See Note
[2024-10-16 08:52] LABS: Basophils # (Auto) 0.1 Thou/mm3 (0.0-0.2); Basophils % (Auto) 1 % (0-2.5); Eosinophils # (Auto) 0.4 Thou/mm3 (0.0-0.5); Eosinophils % (Auto) 5 % (0-10); Hematocrit 29.3 % (41.0-53.0); Hemoglobin 9.3 g/dL (13.5-16.0); Immature Granulocytes % (Auto) 1 % (0-0); Lymphocytes # (Auto) 1.6 Thou/mm3 (1.0-4.8); Lymphocytes % (Auto) 18 % (10-50); Mean Corpuscular HGB Conc 31.7 g/dl (31.0-37.0); Mean Corpuscular Hemoglobin 27.8 pg (25.0-35.0); Mean Corpuscular Volume 88 fL (80-100); Monocytes # (Auto) 0.7 Thou/mm3 (0.0-0.8); Monocytes % (Auto) 8 % (0-12); Neutrophils # (Auto) 5.8 Thou/mm3 (1.8-7.7); Neutrophils % (Auto) 67 % (37-80); Nucleated Red Blood Cell % 0 /100 WBC (0); Platelet Count 264 Thou/mm3 (140-440); RDW Standard Deviation 47.9 fL (35.1-43.9); Red Blood Count 3.35 Miln/mm3 (4.50-5.90); White Blood Count 8.7 Thou/mm3 (3.8-10.6)
[2024-10-16 08:58] LABS: INR 1.1 (0.9-1.3); Prothrombin Time 11.8 Seconds (9.0-12.2)
[2024-10-16] MEDS: PANTOPRAZOLE INJ 40 MG VIAL IVP (09:10)
[2024-10-16] MEDS: GABAPENTIN 300 MG CAPSULE PO ×2 (09:14→20:06)
[2024-10-16] MEDS: DOXYCYCLINE INJ 100 MG in SODIUM CHLORIDE 0.9% (P) 100 ML IV (09:17)
[2024-10-16 14:42] LABS: Cocci Serology, IgM Negative (Negative)
[2024-10-16 14:58] LABS: Cult AFB Sendout- Sputum* See Sep Rpt
--- NOTE | 2024-10-16 15:47 | PC.SS ---
Update: Plan is to possibly downgrade patient today.
--- NOTE | 2024-10-16 16:15 | ESPR_ITS ---
Documentation for date of: 10/16/24 Subjective Subjective Interval history: Patient was seen and examined at the bedside in ICU. Patient reports ongoing back, neck and right upper extremity pain, moderately controlled. He continues to have some scalp pain at the site of krunal. He was weaned off Levophed in the manager of distribution today and was able to maintain blood pressure around 120/70 without any pressors. At this moment he is on 1 L NC saturating 100%. He denies any difficulty breathing. He also denies any dysuria symptoms. Fluconazole was discontinued and cefepime with doxycycline was changed to ceftriaxone. Patient reports he is taking Xanax 2 mg 3 times a day for seizures and requests this medication to be resumed. Patient is stable for downgrade to medical floor for continuation of management. Exam Vital Signs Temp Pulse Resp BP Pulse Ox O2 Del Method O2 Flow Rate 98.5 F 64 18 123/73 100 Nasal Cannula 1 10/16/24 12:00 10/16/24 14:32 10/16/24 14:32 10/16/24 13:00 10/16/24 14:32 10/16/24 03:45 10/16/24 14:32 Narrative Exam Gen: Well-developed and well-nourished elderly male. HEENT: NCAT, PERRLA, EOMI, MMM, anicteric conjunctivae. Multiple bruises on periorbital and facial area scalp laceration with krunal on the right temporoparietal region. CVS: normal S1 and S2. RRR. No M/R/G. Resp: CTA B/L. No rhonchi, rales, crackles or wheezing. Abd: soft, non-tender, non-distended. BS+ in all 4 quadrants. MSK: Good ROM in BUE & BLE. No edema or rash. Neuro: CN II-XII grossly intact. Strength 5/5 in BUE & BLE. Alert and oriented x3. Psych: appropriate mood and affect. Objective Labs 10/23/24 07:36 10/23/24 07:36 Labs: Laboratory Results - last 24 hr 10/15/24 10/15/24 10/15/24 17:37 17:46 18:07 WBC 13.4 H RBC 2.86 L Hgb 8.3 L Hct 25.1 L MCV 88 MCH 29.0 MCHC 33.1 RDW Std Deviation 47.1 H Plt Count 245 Neut % (Auto) 73 Lymph % (Auto) 12 [place] % (Auto) 10 Eos % (Auto) 3 Baso % (Auto) 1 Neut # (Auto) 9.7 H Lymph # (Auto) 1.6 [place] # (Auto) 1.3 H Eos # (Auto) 0.5 Baso # (Auto) 0.1 Immature Gran # (Auto) 0.22 H Absolute Nucleated RBC 0.05 H Immature Gran % 2 H Nucleated RBC % 0 PT 12.7 H INR 1.2 APTT 22.5 D-Dimer 1890 H Puncture Site ABG pH ABG pCO2 ABG pO2 ABG HCO3 ABG O2 Saturation ABG Base Excess Oxygen Liter Flow Sodium 133 L Potassium 4.3 Chloride 103 Carbon Dioxide 20.7 Anion Gap 9 BUN 42 H Creatinine 2.2 H Estim Creat Clear Calc 30.2 L eGFR 31 L BUN/Creatinine Ratio 19 Glucose 104 Calculated Osmolality 276 Lactic Acid 2.2 H Calcium 8.0 L Corrected Calcium 8.5 Phosphorus Magnesium 2.0 Total Bilirubin 0.8 AST 74 H ALT 215 H Alkaline Phosphatase 50 Troponin I < 0.020 B-Natriuretic Peptide 44 Total Protein 5.2 L Albumin 3.4 Globulin 1.8 L Albumin/Globulin Ratio 1.9 Beta-Hydroxybutyrate/Acetoacetate 0.0 Procalcitonin 0.37 Ur Collection Type Cancelled Urine Color Cancelled Urine Clarity Cancelled Urine pH Cancelled Ur Specific [place] Cancelled Urine Protein Cancelled Urine Glucose (UA) Cancelled Urine Ketones Cancelled Urine Blood Cancelled Urine Nitrite Cancelled Urine Bilirubin Cancelled Urine Urobilinogen (Auto) Cancelled Ur Leukocyte Esterase Cancelled Urine RBC Cancelled Urine WBC Cancelled Ur Squamous Epith Cells Cancelled Ur Transition Epith Cell Cancelled Ur Renal Epithelial Cell Cancelled Calcium Carbonate Cryst Cancelled Calcium Phosphate Cryst Cancelled Calcium Oxalate Crystal Cancelled Leucine Crystals Cancelled Cystine Crystals Cancelled Uric Acid Crystals Cancelled Triple Phos Crystals Cancelled Tyrosine Crystals Cancelled Amorphous Crystals Cancelled Urine Bacteria Cancelled Cellular Casts Cancelled Epithelial Casts Cancelled Fatty Casts Cancelled Hyaline Casts Cancelled Granular Casts Cancelled Waxy Casts Cancelled Broad Casts Cancelled RBC Casts Cancelled Urine Mucus Cancelled Urine Trichomonas Cancelled Ur Yeast w Hyphae Cancelled Urine Yeast (Budding) Cancelled Urine Sperm Cancelled Ur Oval Fat Bodies Cancelled Ur Culture Indicated? Cancelled Urine Opiates Screen Positive A Urine Fentanyl Screen Positive A Ur Barbiturates Screen Negative U Amphetamin/Meth Scrn Negative U Benzodiazepines Scrn Positive A U Cocaine Metab Screen Negative U Marijuana (THC) Screen Negative Ethyl Alcohol < 10.0 Coccidioides IgM Ab Influenza A (Rapid) Influenza B (Rapid) RSV Rapid Blood Type A Positive Antibody Screen NEGATIVE Blood Bank Wristband ID Yes 10/15/24 10/15/24 10/15/24 19:01 20:58 21:16 WBC RBC Hgb Hct MCV MCH MCHC RDW Std Deviation Plt Count Neut % (Auto) Lymph % (Auto) [place] % (Auto) Eos % (Auto) Baso % (Auto) Neut # (Auto) Lymph # (Auto) [place] # (Auto) Eos # (Auto) Baso # (Auto) Immature Gran # (Auto) Absolute Nucleated RBC Immature Gran % Nucleated RBC % PT INR APTT D-Dimer Puncture Site Right Radial ABG pH 7.39 ABG pCO2 37 ABG pO2 106 ABG HCO3 23 ABG O2 Saturation 99 H ABG Base Excess -2 Oxygen Liter Flow 5 Sodium Potassium Chloride Carbon Dioxide Anion Gap BUN Creatinine Estim Creat Clear Calc eGFR BUN/Creatinine Ratio Glucose Calculated Osmolality Lactic Acid Calcium Corrected Calcium Phosphorus Magnesium Total Bilirubin AST ALT Alkaline Phosphatase Troponin I B-Natriuretic Peptide Total Protein Albumin Globulin Albumin/Globulin Ratio Beta-Hydroxybutyrate/Acetoacetate Procalcitonin Ur Collection Type Urine Color Urine Clarity Urine pH Ur Specific [place] Urine Protein Urine Glucose (UA) Urine Ketones Urine Blood Urine Nitrite Urine Bilirubin Urine Urobilinogen (Auto) Ur Leukocyte Esterase Urine RBC Urine WBC Ur Squamous Epith Cells Ur Transition Epith Cell Ur Renal Epithelial Cell Calcium Carbonate Cryst Calcium Phosphate Cryst Calcium Oxalate Crystal Leucine Crystals Cystine Crystals Uric Acid Crystals Triple Phos Crystals Tyrosine Crystals Amorphous Crystals Urine Bacteria Cellular Casts Epithelial Casts Fatty Casts Hyaline Casts Granular Casts Waxy Casts Broad Casts RBC Casts Urine Mucus Urine Trichomonas Ur Yeast w Hyphae Urine Yeast (Budding) Urine Sperm Ur Oval Fat Bodies Ur Culture Indicated? Urine Opiates Screen Urine Fentanyl Screen Ur Barbiturates Screen U Amphetamin/Meth Scrn U Benzodiazepines Scrn U Cocaine Metab Screen U Marijuana (THC) Screen Ethyl Alcohol Coccidioides IgM Ab Influenza A (Rapid) Negative Influenza B (Rapid) Negative RSV Rapid Negative Blood Type Antibody Screen Blood Bank Wristband ID 10/15/24 10/16/24 10/16/24 23:29 00:32 02:10 WBC RBC Hgb 11.4 L D Hct 35.2 L D MCV MCH MCHC RDW Std Deviation Plt Count Neut % (Auto) Lymph % (Auto) [place] % (Auto) Eos % (Auto) Baso % (Auto) Neut # (Auto) Lymph # (Auto) [place] # (Auto) Eos # (Auto) Baso # (Auto) Immature Gran # (Auto) Absolute Nucleated RBC Immature Gran % Nucleated RBC % PT INR APTT D-Dimer Puncture Site ABG pH ABG pCO2 ABG pO2 ABG HCO3 ABG O2 Saturation ABG Base Excess Oxygen Liter Flow Sodium Potassium Chloride Carbon Dioxide Anion Gap BUN Creatinine Estim Creat Clear Calc eGFR BUN/Creatinine Ratio Glucose Calculated Osmolality Lactic Acid 4.4 H* 2.6 H Calcium Corrected Calcium Phosphorus Magnesium Total Bilirubin AST ALT Alkaline Phosphatase Troponin I B-Natriuretic Peptide Total Protein Albumin Globulin Albumin/Globulin Ratio Beta-Hydroxybutyrate/Acetoacetate Procalcitonin Ur Collection Type Urine Color Urine Clarity Urine pH Ur Specific [place] Urine Protein Urine Glucose (UA) Urine Ketones Urine Blood Urine Nitrite Urine Bilirubin Urine Urobilinogen (Auto) Ur Leukocyte Esterase Urine RBC Urine WBC Ur Squamous Epith Cells Ur Transition Epith Cell Ur Renal Epithelial Cell Calcium Carbonate Cryst Calcium Phosphate Cryst Calcium Oxalate Crystal Leucine Crystals Cystine Crystals Uric Acid Crystals Triple Phos Crystals Tyrosine Crystals Amorphous Crystals Urine Bacteria Cellular Casts Epithelial Casts Fatty Casts Hyaline Casts Granular Casts Waxy Casts Broad Casts RBC Casts Urine Mucus Urine Trichomonas Ur Yeast w Hyphae Urine Yeast (Budding) Urine Sperm Ur Oval Fat Bodies Ur Culture Indicated? Urine Opiates Screen Urine Fentanyl Screen Ur Barbiturates Screen U Amphetamin/Meth Scrn U Benzodiazepines Scrn U Cocaine Metab Screen U Marijuana (THC) Screen Ethyl Alcohol Coccidioides IgM Ab Influenza A (Rapid) Influenza B (Rapid) RSV Rapid Blood Type Antibody Screen Blood Bank Wristband ID 10/16/24 07:34 WBC 8.7 RBC 3.35 L Hgb 9.3 L D Hct 29.3 L MCV 88 MCH 27.8 MCHC 31.7 RDW Std Deviation 47.9 H Plt Count 264 Neut % (Auto) 67 Lymph % (Auto) 18 [place] % (Auto) 8 Eos % (Auto) 5 Baso % (Auto) 1 Neut # (Auto) 5.8 Lymph # (Auto) 1.6 [place] # (Auto) 0.7 Eos # (Auto) 0.4 Baso # (Auto) 0.1 Immature Gran # (Auto) 0.10 H Absolute Nucleated RBC 0.00 Immature Gran % 1 H Nucleated RBC % 0 PT 11.8 INR 1.1 APTT D-Dimer Puncture Site ABG pH ABG pCO2 ABG pO2 ABG HCO3 ABG O2 Saturation ABG Base Excess Oxygen Liter Flow Sodium 134 L Potassium 4.3 Chloride 103 Carbon Dioxide 25.3 Anion Gap 6 L BUN 31 H Creatinine 1.4 H D Estim Creat Clear Calc 47.5 L eGFR 54 L BUN/Creatinine Ratio 22 H Glucose 87 Calculated Osmolality 273 L Lactic Acid 1.5 Calcium 8.4 Corrected Calcium 8.4 L Phosphorus 2.8 Magnesium 2.0 Total Bilirubin 0.8 AST 64 H ALT 219 H Alkaline Phosphatase 58 Troponin I B-Natriuretic Peptide Total Protein 6.4 Albumin 4.2 D Globulin 2.2 L Albumin/Globulin Ratio 1.9 Beta-Hydroxybutyrate/Acetoacetate Procalcitonin Ur Collection Type Urine Color Urine Clarity Urine pH Ur Specific [place] Urine Protein Urine Glucose (UA) Urine Ketones Urine Blood Urine Nitrite Urine Bilirubin Urine Urobilinogen (Auto) Ur Leukocyte Esterase Urine RBC Urine WBC Ur Squamous Epith Cells Ur Transition Epith Cell Ur Renal Epithelial Cell Calcium Carbonate Cryst Calcium Phosphate Cryst Calcium Oxalate Crystal Leucine Crystals Cystine Crystals Uric Acid Crystals Triple Phos Crystals Tyrosine Crystals Amorphous Crystals Urine Bacteria Cellular Casts Epithelial Casts Fatty Casts Hyaline Casts Granular Casts Waxy Casts Broad Casts RBC Casts Urine Mucus Urine Trichomonas Ur Yeast w Hyphae Urine Yeast (Budding) Urine Sperm Ur Oval Fat Bodies Ur Culture Indicated? Urine Opiates Screen Urine Fentanyl Screen Ur Barbiturates Screen U Amphetamin/Meth Scrn U Benzodiazepines Scrn U Cocaine Metab Screen U Marijuana (THC) Screen Ethyl Alcohol Coccidioides IgM Ab Negative Influenza A (Rapid) Influenza B (Rapid) RSV Rapid Blood Type Antibody Screen Blood Bank Wristband ID ABG Interpretation ABG results: 10/15/24 19:01 ABG pH 7.39 ABG pCO2 37 ABG pO2 106 ABG HCO3 23 ABG O2 Saturation 99 H ABG Base Excess -2 Quality Measures Quality Measures VTE prophylaxis Advance care planning discussed with:: patient Assessment & Plan Assessment Current Active Medications: Generic Name Dose Route Start Last Admin Trade Name Freq PRN Reason Stop Dose Admin Acetaminophen 650 mg 10/15/24 23:02 Acetaminophen 325 Mg Tablet PO 11/14/24 23:01 Q4HR PRN PAIN SCALE 1-3 (mild Hydrocodone Bitart/Acetaminophen 1 tab 10/16/24 04:20 Hydrocodone/Apap 10/325 Tab PO 10/21/24 04:19 QID PRN PAIN SCALE 4-6 (Moderate Albuterol/Ipratropium 3 ml 10/16/24 03:00 10/16/24 14:29 Albuterol/Ipratropium (Duoneb) Rt Shanelle 3 Ml Nebu INH 11/15/24 02:59 3 ml Q4HRRT SENG Administration Dextrose 25 ml 10/16/24 00:10 Dextrose 50%-Water Inj 50 Ml Syringe IV 11/15/24 00:09 Q15MIN PRN BG 50-70 responsive npo pt Dextrose 50 ml 10/16/24 00:10 Dextrose 50%-Water Inj 50 Ml Syringe IV 11/15/24 00:09 Q15MIN PRN BG <50 OR BG <70 & pt unresponsive Gabapentin 300 mg 10/16/24 09:00 10/16/24 09:14 Gabapentin 300 Mg Capsule PO 11/15/24 08:59 300 mg BID SENG Administration Glucagon 1 mg 10/16/24 00:10 Glucagon Inj 1 Mg Vial IM Q15MIN PRN BG <70, and no IV access Norepinephrine/Dextrose 8 mg in 250 mls @ 6.818 mls/hr 10/15/24 17:23 10/16/24 05:55 Levophed In D5w 8mg/250ml IV 11/14/24 17:22 0 mcg/kg/min .Q24H PRN 0 mls/hr PER PROTOCOL Titration Protocol 0.05 MCG/KG/MIN Ceftriaxone Sodium 2 gm/ 50 mls @ 100 mls/hr 10/17/24 09:00 Sodium Chloride IV 10/24/24 08:59 QDAY SENG Montelukast Sodium 10 mg 10/16/24 21:00 Montelukast Sodium 10 Mg Tablet PO 11/15/24 20:59 QPM SENG Morphine Sulfate 2 mg 10/16/24 03:41 10/16/24 11:16 Morphine Sulf Inj 10 Mg/Ml Vial IVP 10/21/24 03:36 2 mg Q4HR PRN Administration PAIN SCALE 7-10 (Severe Pantoprazole Sodium 40 mg 10/16/24 09:00 12 09:10 Pantoprazole Inj 40 Mg Vial IVP 11/15/24 08:59 40 mg QDAY SENG Administration (Fluticasone Furoate 1 ea 10/16/24 09:00 10/16/24 09:00 [Arnuity Ellipta] INH 11/15/24 08:59 Not Given 200 Mcg/Actuation) QDAY SENG Protocol Plan 69-year-old man with past medical history of CAD status post CABG , HTN, HDL, COPD, BPH who came to the ED brought by ambulance secondary to weakness. Patient is poor historian for which formation was taken per chart review her nurse at the ED. Apparently per patient daughter today in the afternoon the patient was pale, diaphoretic, complaining of shortness of breath and complaining of generalized weakness for which they decided to come to the ED. Per patient daughter patient was admitted to [facility] 5 days ago secondary to a head injury and was discharged yesterday and at the hospital he received multiple blood transfusions due to severe bleeding from the scalp. At the bedside patient denied fever chills, chest pain, headache, nausea, vomiting, dysuria, cough or any other associated symptom at the moment he only stated that he needs to take his benzodiazepines because if he does not take it he will have seizures. ED course: Initial vitals: BP 64/41 HR 66 RR 16 afebrile SpO2 98% on room air Pertinent labs: Leukocytosis 13.4, acute normocytic anemia Hgb 8.3 HCT 25.1%, ABGs were unremarkable, creatinine 2.2, BUN 42, lactic acid 2.2, D-dimer was elevated 1890, transaminitis AST 74 ALT 215, alk phos with a normal limits, troponins were negative BNP 44, Pro-Pillo 0.37, U tox was positive for opiates fentanyl and benzodiazepines. Imaging: Chest x-ray showed mild basilar bronchitis pattern, CT abdomen pelvis showed fracture of left transverse process of L2 as well as acute appearing severe compression fracture of L1 with adequate alignment, cervical spine CT showed acute fractures mild to moderate T1-T2, retropulsion posterior superior margin of T1 vertebral body 2 mm, Chest CTA showed multiloculated cavitary lesions in the right upper lobe 26 mm negative for pulmonary emboli, acute fracture of T1, T2, T6 with reduction in 40% with adequate alignment and chronic fracture of T8, mild aneurysmal dilation of ascending thoracic aorta, face CT negative, head CT was negative for acute hemorrhage, mass or midline shift, EKG sinus rhythm heart rate 61 QTc [address] changes or T wave inversions per my interpretation At the ED the patient received IV octreotide, Levophed gtt, IV Protonix 80 mg x 1, 1 L bolus NS x 1, IV morphine 4 mg IV x 1, famotidine 20 mg IV x 1, octreotide drip, IV ceftriaxone x 1, ED physician contacted neurosurgeon at [facility] due to findings in the CT related to T1-T2 and T6 fractures for transfer and they stated that the patient at this time does not need to be transferred and they would not perform any interventions and they recommended to place the patient in a brace for which family member daughter will bring him to the ED. Patient was admitted to the ICU for further treatment and management of septic shock. GEOSPATIAL INFORMATION SCIENTIST: no active problem. CVS: #Shock, resolved. Most likely secondary to septic shock. Patient was recently discharged from [facility] the day before admission secondary to a head injury. Per family member daughter the patient received blood transfusions due to profuse bleeding at the scalp possibly contributory to Plavix in the setting of previous history of CABG. On admission patient was hypotensive MAP below 65, he received at the ED 1 L bolus NS and blood pressure did not improve for which they started patient on Levophed gtt. Plan: ? Levophed discontinued. ? Follow-up CBC and CMP. ? See ID as below. #History of hypertension. ? Hold home medications in the setting of shock. #History of CAD post CABG. #History of hyperlipidemia. ? Hold home Plavix in the setting of shock. PULM: #Acute hypoxic respiratory failure, resolved. Possibly secondary to bacterial vs fungal? vs viral pneumonia? vs symptomatic anemia?. Per patient daughter when paramedics arrived at scene he was complaining of weakness and shortness of breath. Patient is not on home oxygen. Patient was 4 liters oxygen per nasal cannula. Chest x-ray showed mild bibasilar bronchitis, influenza, COVID and RSV were negative. D-dimer was elevated otherwise CTA chest was negative for PE and was found to have multiloculated cavitary lesions in the right upper lobe 26 mm. Plan: ? DuoNebs every 4 hours scheduled. ? IV doxycycline, cefepime and fluconazole discontinued. ? See ID as below. #Multiloculated cavitary lesions. Chest x-ray showed mild bibasilar bronchitis D-dimer was elevated otherwise CTA chest was negative for PE and was found to have multiloculated cavitary lesions in the right upper lobe 26 mm. Plan: ? Pending to cocci serology. ? Pending Aspergillus serology. ? Pending AFBs sputum and QuantiFERON. ? See ID as below. #Hx of COPD. #Emphysema. ? Continue home medications. GI: #Transaminitis. Most likely secondary to shock. Plan: ? Hold home atorvastatin. ? Follow-up CMP. RENAL: #MATHIEU, improving. Most likely prerenal in setting of shock. Creatinine 2.2 BUN 42 on admission(baseline creatinine 1.0). Plan: - IV fluids LR at 100 cc/h. - Strict ins and outs. - Avoid nephrotoxic drugs. - Renally dose medications. - Follow-up CMP. #Lactic acidosis, resolved. Secondary to shock Lactic acid 2.2=>4.4=>2.6=>1.5. ENDO: no active problem. HEME/ONC: #Acute normocytic anemia. Possibly secondary to acute blood loss in the setting of scalp laceration vs acute GI bleed? Hemoglobin 8.3 HCT 35.2% (baseline hemoglobin 15). Per patient daughter at [facility] patient required transfusion due to profuse bleeding from scalp laceration. Patient take plavix due to past medical history of CAD status post CABG. At the ED patient received octreotide gtt. per ED physician guaiac was positive otherwise per the ED note guaiac was negative. Patient denied melena, hematochezia, hematemesis. ? monitor with daily CBC. ? Transfuse if hemoglobin less than 7 ? Follow-up CBC ID: #Septic shock. Possibly secondary to pneumonia vs UTI? Patient met sepsis criteria with hypotension, leukocytosis and lactic acidosis Patient recently was admitted to [facility] secondary to fall and has a scalp laceration with krunal and could be source of infection Chest x-ray mild bibasilar bronchitis, influenza, COVID and RSV were negative CTA was found to have multiloculated cavitary lesions in the right upper lobe 26 mm. UA showed 4+ bacteria no WBCs. Plan: ? IV doxycycline, cefepime and fluconazole discontinued. ? started on ceftriaxone 2 g daily. ? Follow-up blood and urine cultures ? Follow-up cocci IgG/IgM ? Follow-up Aspergillus serology ? Follow-up CBC and CMP MSK: #Acute thoracic fractures. Patient recently had a head trauma secondary to fall and was admitted to [facility] for [address] showed acute fractures mild to moderate T1-T2, retropulsion posterior superior margin of T1 vertebral body 2 mm. Chest CTA showed acute fracture of T1, T2, T6 with reduction in 40% with adequate alignment and chronic fracture of T8, mild aneurysmal dilation of ascending thoracic aorta, face CT negative. Head CT was negative for acute hemorrhage, mass or midline shift. ED consulted neurosurgeon at [facility] that he stated they do not require transfer because alterations can be done and patient will need to use a brace. Plan: ? Continue home [place] every 6 hours. ? Continue gabapentin p.o. twice daily. ? IV morphine 2 mg every 4 hours as needed. SKIN: #Scalp laceration. Secondary to fall. Plan: ? Continue to monitor closely. ? daily wound care. FEN: cardiac diet. Lines: Peripheral lines. DVT prophylaxis: SCDs. GI prophylaxis: Protonix. CODE STATUS: Full code. Patient discussed with my attending Dr Barnhrat. Derik Castelan MD PGY-2. Disclaimer: Despite multiple revisions, due to the dictation software being used, the document bellow may not be free of grammatical errors including phonetic/typographic errors. However, this does not deter from our commitment to providing health care in the patient's best interest in mind. Attending Provider Attestation/Addendum Patient seen and examined with above resident, Derik Castelan MD. I agree with the findings, assessment, and plan of care as documented except for any differences below. Patient admitted with septic shock with unclear etiology though CT imaging of the chest did show cavitary changes in the upper lobe likely remote infection. Patient was placed on isolation though I suspect that this is unlikely active TB or even pulmonary coccidiomycosis. Remote infection in the setting of his history of COPD makes more sense based on imaging findings. Patient's workup points to most likely urinary tract as the infectious source. Will narrow antibiotics just to ceftriaxone now and discontinue fluconazole. Patient did have resolution of lactic acidosis as well with no longer requiring Levophed at this point and adequate urine output. Patient remains on multiple pain modulating regimen in the setting of multiple spinal thoracic fractures. Patient is stable for transfer to medicine long for ongoing management pending culture data to narrow regimen before discharge. Total critical care time: I personally spent 30 minutes for review of physiologic parameters, directing plan of care throughout the day, coordination of care with other specialist, and counseling patient at bedside. This is exclusive of time spent teaching housestaff or performing any separate billable procedures. Patient continued to require critical care services for septic shock secondary to unidentified infection. Patient found to have cavitary pulmonary lesions though this is likely remote. Patient with rapid improvement. However, patient wanted close monitoring and care only available in the ICU as he improved from septic shock and need for vasopressors.
[2024-10-16] MEDS: ALPRazoLAM 0.25 MG TABLET 2 MG PO ×2 (16:43→21:37)
--- NOTE | 2024-10-16 16:43 | PD.RESEVENT ---
Documentation for date of: 10/16/24 Event Note Event Note: 69 y/o male with PMH of CAD s/p CABG, HTN, HLD, Asthma, and BPH was admitted to the ICU on 10/16/2024 due to septic shock. Initially patient was placed on vasopressors due to MAP less than 65. Patient was also recently discharged from [facility] after experiencing a head injury in which he required multiple blood transfusions due to bleeding from the scalp. Patient was attempted to be transferred initially due to T1-T2 and T6 fractures seen in CT, but [facility] did not accept patient as no intervention was to be done at this time. Patient was placed on cefepime, doxy, and fluconazole initially in the ICU. Today coverage was deescalated to ceftriaxone only by the ICU team and patient is off pressors. Patient will be downgraded to the medical floors tomorrow and assigned to team C. Case disclosed with Attending Dr. Payne and My senior Dr. Harrington PGY2 and Dr. Richardson PGY3. Tank Coyle PGY1
[2024-10-16] MEDS: MONTELUKAST SODIUM 10 MG TABLET PO (20:06)
[2024-10-16] MEDS: HYDROcodone/APAP 10/325 TAB PO (21:36)
[2024-10-17] VITALS (14 sets, daily range): BP systolic 105–150; BP diastolic 66–99; PULSE 67–99; RESP 14–22; TEMP 36.1–36.9; O2SAT 93–100; BMI 22.3; BMI 22.2
[2024-10-17] MEDS: MORPHINE SULF INJ 10 MG/ML VIAL 2 MG IVP ×4 (03:33→20:59)
--- NOTE | 2024-10-17 05:12 | PC.RT ---
GILBERTB collected and sent to lab
[2024-10-17 05:17] LABS: Basophils # (Auto) 0.1 Thou/mm3 (0.0-0.2); Basophils % (Auto) 1 % (0-2.5); Eosinophils # (Auto) 0.8 Thou/mm3 (0.0-0.5); Eosinophils % (Auto) 6 % (0-10); Hematocrit 31.3 % (41.0-53.0); Immature Granulocytes % (Auto) 1 % (0-0); Immature Granulocytes Auto 0.11 Thou/mm3 (0.00-0.00); Lymphocytes # (Auto) 2.1 Thou/mm3 (1.0-4.8); Lymphocytes % (Auto) 17 % (10-50); Mean Corpuscular HGB Conc 31.9 g/dl (31.0-37.0); Mean Corpuscular Hemoglobin 28.1 pg (25.0-35.0); Mean Corpuscular Volume 88 fL (80-100); Monocytes # (Auto) 1.4 Thou/mm3 (0.0-0.8); Monocytes % (Auto) 11 % (0-12); Neutrophils # (Auto) 8.1 Thou/mm3 (1.8-7.7); Neutrophils % (Auto) 64 % (37-80); Nucleated Red Blood Cell % 0 /100 WBC (0); Platelet Count 307 Thou/mm3 (140-440); RDW Standard Deviation 47.6 fL (35.1-43.9); Red Blood Count 3.56 Miln/mm3 (4.50-5.90); White Blood Count 12.6 Thou/mm3 (3.8-10.6)
[2024-10-17 05:41] LABS: Cult AFB Sendout- Sputum* See Sep Rpt
[2024-10-17 05:45] LABS: Alanine Aminotransferase 162 U/L (10-49); Albumin, Serum 4.3 gm/dL (3.4-4.8); Albumin/Globulin Ratio 1.9 (1.2-2.2); Alkaline Phosphatase 64 U/L (46-116); Anion Gap 8 (7-16); Aspartate Amino Transferase 44 U/L (0-34); BUN/Creatinine Ratio 19 Ratio (12-20); Bilirubin,Total 0.8 mg/dL (0.3-1.2); Blood Urea Nitrogen 21 mg/dL (9-23); Calcium 8.8 mg/dL (8.3-10.6); Calcium (Corrected) 8.8 mg/dL (8.5-10.1); Carbon Dioxide 25.5 mMol/L (20.0-31.0); Chloride 102 mMol/L (98-107); Creatinine (Component) 1.1 mg/dL (0.6-1.3); Estimated Creatinine Clearance 58.8 mL/min (>60); Globulin 2.3 gm/dL (2.3-3.5); Glucose 86 mg/dL (74-106); Osmolality,Calculated 272 (275-295); Phosphorous 2.5 mg/dL (2.4-5.1); Potassium 4.5 mMol/L (3.4-5.1); Sodium 135 mMol/L (136-145); Total Protein 6.6 gm/dL (5.7-8.2); eGFR > 60 See Note
[2024-10-17] MEDS: ALPRazoLAM 0.25 MG TABLET 2 MG PO ×3 (06:13→21:03)
[2024-10-17] MEDS: ALBUTEROL/IPRATROPIUM (Duoneb) RT SOL 3 ML NEBU INH ×5 (06:21→23:28)
[2024-10-17] MEDS: HYDROcodone/APAP 10/325 TAB PO ×2 (07:29→23:02)
[2024-10-17] MEDS: MIRTAZAPINE 15 MG TABLET PO (08:49)
[2024-10-17] MEDS: PANTOPRAZOLE INJ 40 MG VIAL IVP (08:49)
[2024-10-17] MEDS: cefTRIAXone 2 GM in SODIUM CHLORIDE 0.9% (P) 50 ML IV (08:49)
[2024-10-17] MEDS: GABAPENTIN 300 MG CAPSULE PO ×2 (08:49→20:44)
[2024-10-17] MEDS: SUMAtriptan 25 MG TABLET 100 MG PO (08:51)
--- NOTE | 2024-10-17 09:10 | ESPR_ITS ---
<Statement entered by Al Richardson DO - 10/17/24 13:47> Senior attestation: Patient was examined and case was reviewed with team including attending physician. Note reviewed, I agree with most of its contents and agree with the patient's care. Blood cultures negative on preliminary reads, will adjust antibiotic regimen to cefepime and doxycycline given recent hospitalization at [facility] prior to admission. Pending TB and asperigillus, cocci negative. Physical therapy ordered, patient may benefit from a brace for thoracic fractures. Al Richardson DO PGY-3 Documentation for date of: 10/17/24 Subjective Subjective Interval history: Patient was seen at bedside this morning. No overnight events. On awake overnight monitor reviewed patient had some PVCs, but was sinus rhythm. Patient states he has been feeling well. As patient is grieving due to recent loss of his [place] if he had any suicidal ideations or when he responded he did not have any at this time. Patient's blood cultures were negative at 24 hours. His antibiotic regimen was changed to cefepime and doxycycline given the risk for hospital-acquired pneumonia given his prior admission to [facility]. Patient had no new complaints this morning. Cocci came back negative, still pending QuantiFERON and AFBs. Patient's blood pressure has been stable with MAP above 65. Exam Vital Signs Temp Pulse Resp BP Pulse Ox O2 Del Method O2 Flow Rate 97.0 F 78 17 131/99 H 96 Room Air 1 10/17/24 08:00 10/17/24 08:00 10/17/24 08:00 10/17/24 08:00 10/17/24 08:00 10/17/24 08:00 10/17/24 06:22 Narrative Exam General: A/O x3, ill appearing Eyes: PERRL, EOMI. reddish conjuctiva, vision grossly intact, bruising around YULIET eyes. Ears: No ear pain, no ear discharge, Hearing grossly intact. Nose: No nasal discharge. Mouth/Throat: Dry mucous membranes, no redness, no lesions. Neck: Neck supple, non-tender, no cervical lymphadenopathy. Lungs: Clear YULIET to auscultation and percussion, No accessory muscle use. Cardio: Normal S1/S2, regular rhythm, no murmurs, no JVD Abdomen: Soft, non-tender, no palpable masses, peristalsis present, no guarding or rebound. Extremities: Symmetrical, no significant deformities, no peripheral edema , non-tender, peripheral pulses presents. Skin: No rashes, no lesions, warm to touch. multiple krunal in head laceration due to head trauma, bruising around YULIET eye Neuro: No focal neurological deficits. motor and sensory intact Psych: Cooperative, appropriate mood and effect. Objective Labs 10/17/24 04:42 10/17/24 04:42 Labs: Laboratory Results - last 24 hr 10/16/24 10/17/24 07:34 04:42 WBC 12.6 H D RBC 3.56 L Hgb 10.0 L Hct 31.3 L MCV 88 MCH 28.1 MCHC 31.9 RDW Std Deviation 47.6 H Plt Count 307 D Neut % (Auto) 64 Lymph % (Auto) 17 [place] % (Auto) 11 Eos % (Auto) 6 Baso % (Auto) 1 Neut # (Auto) 8.1 H Lymph # (Auto) 2.1 [place] # (Auto) 1.4 H Eos # (Auto) 0.8 H Baso # (Auto) 0.1 Immature Gran # (Auto) 0.11 H Absolute Nucleated RBC 0.00 Immature Gran % 1 H Nucleated RBC % 0 Sodium 135 L Potassium 4.5 Chloride 102 Carbon Dioxide 25.5 Anion Gap 8 BUN 21 Creatinine 1.1 Estim Creat Clear Calc 58.8 L eGFR > 60 BUN/Creatinine Ratio 19 Glucose 86 Calculated Osmolality 272 L Calcium 8.8 Corrected Calcium 8.8 Phosphorus 2.5 Total Bilirubin 0.8 AST 44 H ALT 162 H Alkaline Phosphatase 64 Total Protein 6.6 Albumin 4.3 Globulin 2.3 Albumin/Globulin Ratio 1.9 Coccidioides IgM Ab Negative ABG Interpretation ABG results: 10/15/24 19:01 ABG pH 7.39 ABG pCO2 37 ABG pO2 106 ABG HCO3 23 ABG O2 Saturation 99 H ABG Base Excess -2 Quality Measures Quality Measures VTE prophylaxis Advance care planning discussed with:: patient Assessment & Plan Assessment Current Active Medications: Generic Name Dose Route Start Last Admin Trade Name Freq PRN Reason Stop Dose Admin Acetaminophen 650 mg 10/15/24 23:02 Acetaminophen 325 Mg Tablet PO 11/14/24 23:01 Q4HR PRN PAIN SCALE 1-3 (mild Hydrocodone Bitart/Acetaminophen 1 tab 10/16/24 04:20 10/17/24 07:29 Hydrocodone/Apap 10/325 Tab PO 10/21/24 04:19 1 tab QID PRN Administration PAIN SCALE 4-6 (Moderate Albuterol/Ipratropium 3 ml 10/16/24 03:00 10/17/24 06:21 Albuterol/Ipratropium (Duoneb) Rt Shanelle 3 Ml Nebu INH 11/15/24 02:59 3 ml Q4HRRT SENG Administration Alprazolam 2 mg 10/16/24 16:20 10/17/24 06:13 Alprazolam 0.25 Mg Tablet PO 10/21/24 16:19 2 mg TID SENG Administration Gabapentin 300 mg 10/16/24 09:00 10/17/24 08:49 Gabapentin 300 Mg Capsule PO 11/15/24 08:59 300 mg BID SENG Administration Norepinephrine/Dextrose 8 mg in 250 mls @ 6.818 mls/hr 10/15/24 17:23 10/16/24 05:55 Levophed In D5w 8mg/250ml IV 11/14/24 17:22 0 mcg/kg/min .Q24H PRN 0 mls/hr PER PROTOCOL Titration Protocol 0.05 MCG/KG/MIN Ceftriaxone Sodium 2 gm/ 50 mls @ 100 mls/hr 10/17/24 09:00 10/17/24 08:49 Sodium Chloride IV 10/24/24 08:59 100 mls/hr QDAY SENG Administration Mirtazapine 15 mg 10/17/24 09:00 10/17/24 08:49 Mirtazapine 15 Mg Tablet PO 11/16/24 08:59 15 mg QDAY SENG Administration Montelukast Sodium 10 mg 10/16/24 21:00 10/16/24 20:06 Montelukast Sodium 10 Mg Tablet PO 11/15/24 20:59 10 mg QPM SENG Administration Morphine Sulfate 2 mg 10/16/24 03:41 10/17/24 03:33 Morphine Sulf Inj 10 Mg/Ml Vial IVP 10/21/24 03:36 2 mg Q4HR PRN Administration PAIN SCALE 7-10 (Severe Pantoprazole Sodium 40 mg 10/16/24 09:00 10/17/24 08:49 Pantoprazole Inj 40 Mg Vial IVP 11/15/24 08:59 40 mg QDAY SENG Administration (Fluticasone Furoate 1 ea 10/16/24 09:00 10/16/24 09:00 [Arnuity Ellipta] INH 11/15/24 08:59 Not Given 200 Mcg/Actuation) QDAY SENG Protocol Sumatriptan Succinate 100 mg 10/17/24 07:30 10/17/24 08:51 Sumatriptan 25 Mg Tablet PO 11/16/24 07:29 100 mg Q2H PRN Administration migraine (max 2 doses in 24hr) Plan 69-year-old male with past medical history of CAD s/p CABG, hypertension, hyperlipidemia, asthma, and BPH was admitted to the hospital on 10/16/2024 due to septic shock likely secondary to hospital-acquired pneumonia. #Septic shock, resolved #Acute hypoxic respiratory failure secondary to #Hospital-acquired pneumonia #Multiloculated cavitary lesion #Lactic acidosis, resolved #Leukocytosis ?Patient initially had to be admitted to the ICU given the need for vasopressors given blood pressure below 65. ?DDx hospital-acquired pneumonia given recent hospital admission versus community-acquired pneumonia versus TB given multiloculated cavitary lesion versus aspergillosis ? Patient is currently off pressors and is saturating well on room air and maintaining a MAP above 65. ?Initial lactic acid was 2.2 and up trended to 4.4 and down trended to 1.5 ?Patient received fluconazole, doxycycline, and Rocephin while in the ICU. ?WBC 12.6 today ? Blood cultures have been negative for the first 24 hours Plan: ?Start patient on doxycycline and cefepime [10/17/2024? ] ?Pending official blood cultures results ? Pending QuantiFERON and AFBs ? Will continue to monitor #Transaminitis ?AST 44 and ALT was 62 today Plan: ? Will continue to monitor #MATHIEU, resolved ? Patient came in with creatinine 2.2 and BUN 42 on admission ? Creatinine baseline is 1 ? Creatinine today is 1.1 Plan: ? Avoid nephrotoxic agents ?Renally dose medications ? Will continue to monitor #Normocytic normochromic anemia ? Patient's baseline hemoglobin is around 15 from prior visits ? Hemoglobin 8.3 on admission and currently at 10 ? No active signs of bleeding Plan: ?Will transfuse hemoglobin less than 7 ? Will continue to monitor #Hx of recent head trauma #Acute thoracic and lumbar fractures ?Cervical spine showed acute fractures of T1 and T2 ? Abdomen/pelvis CT showed fracture of L2 and L1 ?Patient was attempted to be transferred to [facility], but was unsuccessful as they said that patient did not need any intervention at this time and could be treated medically. Plan: ?Will continue with pain control medication with [place] for pain scale 4-6 and morphine for pain scale 7-10. ? Will continue to monitor #Hx of CAD s/p CABG #Hyperlipidemia ?Will restart patient's Plavix and atorvastatin #Hx of hypertension ?Will hold off on any antihypertensive medication at this time given patient's recent septic shock and blood pressures has been on the softer end today. Disposition: Patient seen in telemetry started cefepime and doxy for possible HAP. Diet: Low sodium and dysphagia 2 GI prophylaxis: PPI DVT prophylaxis: SCDs Code: Full code Case disclosed with Attending Dr. Linares and My senior Dr. Richardson PGY3. Tank Coyle PGY1 Attending Provider Attestation/Addendum I, Vianca Linares, DO, attest that I was physically present for the huerta portions of the service and evaluated the patient with the resident and I reviewed and discussed the case with the resident and agree with the resident's findings and plans of care as documented above Patient seen and evaluated this AM. He states that his neck hurts. Will order TLSO brace for thoracic fractures noted on CT. Patient is otherwise neurologically intact. He is on room air and denies any shortness of breath or chest pain. Pending AFB collection. Patient states he would like to rest. Will order PT. Right eye appears injected with thick discharge. Will start erythromycin eyedrops for bacterial conjunctivitis. Patient has ecchymosis over his race which appears to be healing, as well as well healed stitches over right side of scalp. Will continue with IV antibiotics to cover for pseudomonas and MRSA for pneumonia. Patient remains on isolation for TB rule out
--- NOTE | 2024-10-17 09:26 | PC.SS ---
This is 69-year-old, , male who presented to the ED after suffering from low blood pressure. Patient is on isolation for TB rule out. HILARY completed assessment with medical decision maker, Lindy, whom is daughter's patient. Lindy reported that patient was discharged from [facility] on 10/14/2024 after requesting to be D/C due to his dying at [facility]. Patient returned home. Prior to admission to [facility], patient was independent with ADLs, no DME use. Patient suffered an accident that injured his neck and spine. Lindy is unaware of his physical ability to care for self. Patient has a wheelchair that was provided at D/C. Patient has a nebulizer. Patient's PCP is Dr. 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 When medically clear, patient will benefit from PT at SNF. Lindy requested that [facility] not be provided as a choice due to previous experience. Discharge plan: SNF vs. Home with HH. Next of Kin: Lindy Espinoza, daughter.
[2024-10-17] MEDS: DOXYCYCLINE 100 MG TABLET PO ×2 (09:45→20:44)
[2024-10-17] MEDS: CEFEPIME INJ 2 GM in SODIUM CHLORIDE 0.9% (P) 50 ML IV ×2 (09:46→20:44)
[2024-10-17] MEDS: CLOPIDOGREL BISULFATE 75 MG TABLET PO (14:08)
[2024-10-17] MEDS: Erythromycin Op Oint 0.5% 1 GM PACKET BOTH EYES (14:10)
--- NOTE | 2024-10-17 16:08 | PC.DIETICIAN ---
1. Ensure max protien TID w/ breakfast, lunch, and dinner 2. Flavored Akshat 1 pkt BID daily after lunch and dinner, mix with 6-8 oz water RN to administer as medication
--- NOTE | 2024-10-17 18:39 | PC.RT ---
pt eating not ready for his tx at this time
[2024-10-17] MEDS: ATORVASTATIN CALCIUM 20 MG TABLET 40 MG PO (20:43)
[2024-10-17] MEDS: MONTELUKAST SODIUM 10 MG TABLET PO (20:44)
[2024-10-18] VITALS (11 sets, daily range): BP systolic 107–117; BP diastolic 71–87; PULSE 90–105; RESP 14–21; TEMP 36.1–36.6; O2SAT 93–99; BMI 22.4
[2024-10-18] MEDS: MORPHINE SULF INJ 10 MG/ML VIAL 2 MG IVP ×5 (01:00→22:16)
[2024-10-18] MEDS: ALBUTEROL/IPRATROPIUM (Duoneb) RT SOL 3 ML NEBU INH ×5 (03:59→18:52)
[2024-10-18] MEDS: ALPRazoLAM 0.25 MG TABLET 2 MG PO ×3 (05:13→21:31)
[2024-10-18 06:18] LABS: Basophils # (Auto) 0.1 Thou/mm3 (0.0-0.2); Basophils % (Auto) 1 % (0-2.5); Eosinophils # (Auto) 0.9 Thou/mm3 (0.0-0.5); Eosinophils % (Auto) 8 % (0-10); Hematocrit 31.8 % (41.0-53.0); Hemoglobin 10.1 g/dL (13.5-16.0); Immature Granulocytes % (Auto) 2 % (0-0); Immature Granulocytes Auto 0.19 Thou/mm3 (0.00-0.00); Lymphocytes # (Auto) 2.5 Thou/mm3 (1.0-4.8); Lymphocytes % (Auto) 23 % (10-50); Mean Corpuscular HGB Conc 31.8 g/dl (31.0-37.0); Mean Corpuscular Hemoglobin 27.8 pg (25.0-35.0); Mean Corpuscular Volume 88 fL (80-100); Monocytes # (Auto) 1.2 Thou/mm3 (0.0-0.8); Monocytes % (Auto) 11 % (0-12); Neutrophils # (Auto) 5.9 Thou/mm3 (1.8-7.7); Neutrophils % (Auto) 55 % (37-80); Nucleated Red Blood Cell % 0 /100 WBC (0); Platelet Count 396 Thou/mm3 (140-440); RDW Standard Deviation 47.6 fL (35.1-43.9); Red Blood Count 3.63 Miln/mm3 (4.50-5.90); White Blood Count 10.8 Thou/mm3 (3.8-10.6)
[2024-10-18 06:42] LABS: Alanine Aminotransferase 114 U/L (10-49); Albumin, Serum 4.1 gm/dL (3.4-4.8); Albumin/Globulin Ratio 1.6 (1.2-2.2); Alkaline Phosphatase 73 U/L (46-116); Anion Gap 8 (7-16); Aspartate Amino Transferase 31 U/L (0-34); BUN/Creatinine Ratio 17 Ratio (12-20); Bilirubin,Total 0.7 mg/dL (0.3-1.2); Blood Urea Nitrogen 17 mg/dL (9-23); Carbon Dioxide 24.7 mMol/L (20.0-31.0); Chloride 99 mMol/L (98-107); Globulin 2.6 gm/dL (2.3-3.5); Glucose 88 mg/dL (74-106); Osmolality,Calculated 265 (275-295); Potassium 4.6 mMol/L (3.4-5.1); Sodium 132 mMol/L (136-145); Total Protein 6.7 gm/dL (5.7-8.2); eGFR > 60 See Note
[2024-10-18] MEDS: PANTOPRAZOLE INJ 40 MG VIAL IVP (08:14)
[2024-10-18] MEDS: CEFEPIME INJ 2 GM in SODIUM CHLORIDE 0.9% (P) 50 ML IV ×2 (08:15→21:30)
[2024-10-18] MEDS: Erythromycin Op Oint 0.5% 1 GM PACKET BOTH EYES (08:15)
[2024-10-18] MEDS: GABAPENTIN 300 MG CAPSULE PO ×2 (08:15→21:31)
[2024-10-18] MEDS: MIRTAZAPINE 15 MG TABLET PO (08:15)
[2024-10-18] MEDS: DOXYCYCLINE 100 MG TABLET PO ×2 (08:15→21:31)
[2024-10-18] MEDS: CLOPIDOGREL BISULFATE 75 MG TABLET PO (08:15)
--- NOTE | 2024-10-18 08:28 | ESPR_ITS ---
<Statement entered by Al Richardson DO - 10/18/24 15:14> Senior attestation: Patient was examined and case was reviewed with team including attending physician. Note reviewed, I agree with most of its contents and agree with the patient's care. Pending AFB studies, 2 have been taken with 3rd to be collected today. Cardiac murmur noticed on exam today, patient does not appear to be in acute distress, will order EKG and echo. Al Richardson DO PGY-3 Documentation for date of: 10/18/24 Subjective Subjective Interval history: Patient was seen at bedside this morning. No overnight events. Patient was complaining of back pain even with pain medication as needed, ordered lidocaine patch. On assessment patient was found to have a systolic ejection murmur, ordered EKG and echo. Blood cultures have been negative. Exam Vital Signs Temp Pulse Resp BP Pulse Ox O2 Del Method O2 Flow Rate 97.2 F 93 15 107/86 H 98 Room Air 2 10/18/24 08:00 10/18/24 08:00 10/18/24 08:00 10/18/24 08:00 10/18/24 08:00 10/18/24 08:00 10/18/24 06:56 Narrative Exam General: A/O x3, ill appearing Eyes: PERRL, EOMI. clearer conjuctiva, vision grossly intact, bruising around YULIET eyes. Ears: No ear pain, no ear discharge, Hearing grossly intact. Nose: No nasal discharge. Mouth/Throat: Dry mucous membranes, no redness, no lesions. Neck: Neck supple, non-tender, no cervical lymphadenopathy. Lungs: Clear YULIET to auscultation and percussion, No accessory muscle use. Cardio: Normal S1/S2, regular rhythm, systolic ejection murmur with palpable thrill, no JVD Abdomen: Soft, non-tender, no palpable masses, peristalsis present, no guarding or rebound. Extremities: Symmetrical, no significant deformities, no peripheral edema , non-tender, peripheral pulses presents. Skin: No rashes, no lesions, warm to touch. multiple krunal in head laceration due to head trauma, bruising around YULIET eye Neuro: No focal neurological deficits. motor and sensory intact Psych: Cooperative, appropriate mood and effect. Objective Labs 10/18/24 04:44 10/18/24 04:44 Labs: Laboratory Results - last 24 hr 10/18/24 04:44 WBC 10.8 H RBC 3.63 L Hgb 10.1 L Hct 31.8 L MCV 88 MCH 27.8 MCHC 31.8 RDW Std Deviation 47.6 H Plt Count 396 D Neut % (Auto) 55 Lymph % (Auto) 23 [place] % (Auto) 11 Eos % (Auto) 8 Baso % (Auto) 1 Neut # (Auto) 5.9 Lymph # (Auto) 2.5 [place] # (Auto) 1.2 H Eos # (Auto) 0.9 H Baso # (Auto) 0.1 Immature Gran # (Auto) 0.19 H Absolute Nucleated RBC 0.00 Immature Gran % 2 H Nucleated RBC % 0 Sodium 132 L Potassium 4.6 Chloride 99 Carbon Dioxide 24.7 Anion Gap 8 BUN 17 Creatinine 1.0 Estim Creat Clear Calc 65.0 eGFR > 60 BUN/Creatinine Ratio 17 Glucose 88 Calculated Osmolality 265 L Calcium 9.0 Corrected Calcium 9.0 Phosphorus 3.0 Total Bilirubin 0.7 AST 31 ALT 114 H Alkaline Phosphatase 73 Total Protein 6.7 Albumin 4.1 Globulin 2.6 Albumin/Globulin Ratio 1.6 ABG Interpretation ABG results: 10/15/24 19:01 ABG pH 7.39 ABG pCO2 37 ABG pO2 106 ABG HCO3 23 ABG O2 Saturation 99 H ABG Base Excess -2 Quality Measures Quality Measures VTE prophylaxis Advance care planning discussed with:: patient Assessment & Plan Assessment Current Active Medications: Generic Name Dose Route Start Last Admin Trade Name Freq PRN Reason Stop Dose Admin Acetaminophen 650 mg 10/15/24 23:02 Acetaminophen 325 Mg Tablet PO 11/14/24 23:01 Q4HR PRN PAIN SCALE 1-3 (mild Hydrocodone Bitart/Acetaminophen 1 tab 10/16/24 04:20 10/17/24 23:02 Hydrocodone/Apap 10/325 Tab PO 10/21/24 04:19 1 tab QID PRN Administration PAIN SCALE 4-6 (Moderate Albuterol/Ipratropium 3 ml 10/16/24 03:00 10/18/24 06:52 Albuterol/Ipratropium (Duoneb) Rt Shanelle 3 Ml Nebu INH 11/15/24 02:59 3 ml Q4HRRT SENG Administration Alprazolam 2 mg 10/16/24 16:20 10/18/24 05:13 Alprazolam 0.25 Mg Tablet PO 10/21/24 16:19 2 mg TID SENG Administration Atorvastatin Calcium 40 mg 10/17/24 21:00 10/17/24 20:43 Atorvastatin Calcium 20 Mg Tablet PO 11/16/24 20:59 40 mg QPM SENG Administration Clopidogrel Bisulfate 75 mg 10/17/24 13:15 10/17/24 14:08 Clopidogrel Bisulfate 75 Mg Tablet PO 11/16/24 13:14 75 mg DAILY SENG Administration Doxycycline Hyclate 100 mg 10/17/24 09:15 10/17/24 20:44 Doxycycline 100 Mg Tablet PO 10/24/24 09:14 100 mg BID SENG Administration Erythromycin 1 gm 10/17/24 13:45 10/17/24 14:10 Erythromycin Op Oint 0.5% 1 Gm Packet BOTH EYES 11/16/24 13:44 1 gm QDAY SENG Administration Gabapentin 300 mg 10/16/24 09:00 10/17/24 20:44 Gabapentin 300 Mg Capsule PO 11/15/24 08:59 300 mg BID SENG Administration Norepinephrine/Dextrose 8 mg in 250 mls @ 6.818 mls/hr 10/15/24 17:23 10/16/24 05:55 Levophed In D5w 8mg/250ml IV 11/14/24 17:22 0 mcg/kg/min .Q24H PRN 0 mls/hr PER PROTOCOL Titration Protocol 0.05 MCG/KG/MIN Cefepime HCl 2 gm/ Sodium 50 mls @ 100 mls/hr 10/17/24 09:16 10/17/24 20:44 Chloride IV 10/24/24 09:15 100 mls/hr Q12HR SENG Administration Mirtazapine 15 mg 10/17/24 09:00 10/17/24 08:49 Mirtazapine 15 Mg Tablet PO 11/16/24 08:59 15 mg QDAY SENG Administration Montelukast Sodium 10 mg 10/16/24 21:00 10/17/24 20:44 Montelukast Sodium 10 Mg Tablet PO 11/15/24 20:59 10 mg QPM SENG Administration Morphine Sulfate 2 mg 10/16/24 03:41 10/18/24 05:21 Morphine Sulf Inj 10 Mg/Ml Vial IVP 10/21/24 03:36 2 mg Q4HR PRN Administration PAIN SCALE 7-10 (Severe Pantoprazole Sodium 40 mg 10/16/24 09:00 10/17/24 08:49 Pantoprazole Inj 40 Mg Vial IVP 11/15/24 08:59 40 mg QDAY SENG Administration (Fluticasone Furoate 1 ea 10/16/24 09:00 10/17/24 10:13 [Arnuity Ellipta] INH 11/15/24 08:59 Not Given 200 Mcg/Actuation) QDAY SENG Protocol Sumatriptan Succinate 100 mg 10/17/24 07:30 10/17/24 08:51 Sumatriptan 25 Mg Tablet PO 11/16/24 07:29 100 mg Q2H PRN Administration migraine (max 2 doses in 24hr) Plan 69-year-old male with past medical history of CAD s/p CABG, hypertension, hyperlipidemia, asthma, and BPH was admitted to the hospital on 10/16/2024 due to septic shock likely secondary to hospital-acquired pneumonia. #Systolic ejection murmur ?Patient on physical assessment had a new onset systolic ejection murmur with palpable thrill which was not present on prior physical exams. ? Patient does have a history of CAD status post CABG ? Patient denies any dizziness syncopal episodes, chest pain, or palpitations. Plan: ? Ordered EKG and echo ? Will consider cardio consult depending on echo findings. #Septic shock, resolved #Acute hypoxic respiratory failure secondary to #Hospital-acquired pneumonia #Multiloculated cavitary lesion #Lactic acidosis, resolved #Leukocytosis ?Patient initially had to be admitted to the ICU given the need for vasopressors given blood pressure below 65. ?DDx hospital-acquired pneumonia given recent hospital admission versus community-acquired pneumonia versus TB given multiloculated cavitary lesion versus aspergillosis ? Patient is currently off pressors and is saturating well on room air and maintaining a MAP above 65. ?Initial lactic acid was 2.2 and up trended to 4.4 and down trended to 1.5 ?Patient received fluconazole, doxycycline, and Rocephin while in the ICU. ?WBC 12.6 today ? Blood cultures have been negative Plan: ?Continue patient on doxycycline and cefepime [10/17/2024? ] ? Pending QuantiFERON and AFBs ? Will continue to monitor #Transaminitis ?AST 31 and ALT was 114 today Plan: ? Will continue to monitor #MATHIEU, resolved ? Patient came in with creatinine 2.2 and BUN 42 on admission ? Creatinine baseline is 1 ? Creatinine today is 1 Plan: ? Avoid nephrotoxic agents ?Renally dose medications ? Will continue to monitor #Normocytic normochromic anemia ? Patient's baseline hemoglobin is around 15 from prior visits ? Hemoglobin 8.3 on admission and currently at 10.1 ? No active signs of bleeding Plan: ?Will transfuse hemoglobin less than 7 ? Will continue to monitor #Hx of recent head trauma #Acute thoracic and lumbar fractures ?Cervical spine showed acute fractures of T1 and T2 ? Abdomen/pelvis CT showed fracture of L2 and L1 ?Patient was attempted to be transferred to [facility], but was unsuccessful as they said that patient did not need any intervention at this time and could be treated medically. Plan: ?Will continue with pain control medication with [place] for pain scale 4-6 and morphine for pain scale 7-10. -Added lidocaine patch ? Will continue to monitor #Hx of CAD s/p CABG #Hyperlipidemia ?Continue patient's Plavix and atorvastatin #Hx of hypertension ?Will hold off on any antihypertensive medication at this time given patient's recent septic shock and blood pressures has been on the softer end today. Disposition: Patient seen in telemetry continue cefepime and doxy for possible HAP, ordered echo and EKG due to new systolic ejection murmur. Diet: Low sodium and dysphagia 2 GI prophylaxis: PPI DVT prophylaxis: SCDs Code: Full code Case disclosed with Attending Dr. Linares and My senior Dr. Richardson PGY3. Tank Coyle PGY1 Attending Provider Attestation/Addendum I, Vianca Linares, DO, attest that I was physically present for the huerta portions of the service and evaluated the patient with the resident and I reviewed and discussed the case with the resident and agree with the resident's findings and plans of care as documented above Patient seen and evaluated this AM. He continues to complain of pain in his cervical spine. He also states that there is pain with his calvert catheter and suprapubic tenderness. Suspect kink in calvert catheter and asked for nursing to exchange catheter. Will continue to collect AFB smears as patient remains on isolation for TB r/o. He remains on 2L/NC and denies any chest pain or shortness of breath.
--- NOTE | 2024-10-18 10:16 | EKG_ITS ---
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
--- NOTE | 2024-10-18 10:18 | ECHO_ITS ---
Transthoracic Echo Report Ht (in): 68 Wt (lb): 147 Exam Location: Portable Status: Inpatient Horticulture Worker: Lorena Linn Indications: Procedure Performed: BP: 109 / 74 HR: 92 Rhythm: Tachycardia Technical Quality: Fair MEASUREMENTS (Male / Female) Normal Values 2D ECHO LV Diastolic Diameter PLAX 4.3 cm 4.2 - 5.9 / 3.9 - 5.3 cm LV Systolic Diameter PLAX 3.0 cm IVS Diastolic Thickness 0.9 cm 0.6 - 1.0 / 0.6 - 0.9 cm LVPW Diastolic Thickness 1.0 cm 0.6 - 1.0 / 0.6 - 0.9 cm LV Relative Wall Thickness 0.4 LVOT Diameter 1.7 cm LA Volume Index 27.0 cm?/m? 16 - 28 cm?/m? Ascending Aorta Diameter 3.6 cm M-MODE Aortic Root Diameter MM 3.7 cm LA Systolic Diameter MM 4.0 cm LA Ao Ratio MM 1.1 AV Cusp Separation MM 2.3 cm DOPPLER AV Peak Velocity 304.5 cm/s AV Peak Gradient 37.1 mmHg AV Mean Gradient 19.5 mmHg AV Velocity Time Integral 52.8 cm LVOT Peak Velocity 247.0 cm/s LVOT Peak Gradient 24.4 mmHg LVOT Velocity Time Integral 45.4 cm LVOT Cardiac Index 5297.1 cm?/min?m? AV Area Cont Eq vti 2.0 cm? AV Area Cont Eq pk 1.8 cm? MV Peak Velocity 112.0 cm/s MV Peak Gradient 5.0 mmHg MV Mean Velocity 76.5 cm/s MV Mean Gradient 3.0 mmHg MV Area PHT 3.4 cm? MR Peak Velocity 339.0 cm/s MR Peak Gradient 46.0 mmHg Mitral E Point Velocity 97.3 cm/s Mitral A Point Velocity 94.3 cm/s Mitral E to A Ratio 1.0 LV E' Lateral Velocity 8.4 cm/s Mitral E to LV E' Lateral Ratio 11.6 LV E' Septal Velocity 3.4 cm/s Mitral E to LV E' Septal Ratio 28.9 TR Peak Velocity 239.0 cm/s TR Peak Gradient 22.8 mmHg FINDINGS Left Ventricle Normal left ventricular size, systolic function with no obvious regional wall motion abnormalities. Mild LVH. The ejection fraction is visually estimated at 60-65%. Right Ventricle The right ventricle is normal in size and systolic function. The estimated right ventricular systoli c pressure, 28 mmHg. RAP 5. Left Atrium The left atrium is normal by two-dimensional, color flow and Doppler imaging with no structural abnormalities, no thrombus formation present. Right Atrium The right atrium is normal by two-dimensional imaging, color flow and Doppler imaging with no struct ural abnormalities, no thrombus formation present. Atrial Septum The interatrial septum appears normal with no evidence of a shunt. Aorta The aortic root and ascending aorta are mildly dilated. Mitral Valve The mitral valve is normal by two-dimensional, color flow and Doppler interrogation. There is mild mitral valve regurgitation. Aortic Valve The aortic valve is trileaflet and normal by two-dimensional, color flow and Doppler interrogation. There is no significant aortic valve regurgitation. Tricuspid Valve The tricuspid valve is normal by two-dimensional, color flow and Doppler interrogation. There is mil d tricuspid valve regurgitation. Pulmonic Valve There is no significant pulmonic valve regurgitation. Vessels The pulmonary artery appears normal. The inferior vena cava pulmonary and hepatic veins not well visualized. Pericardium The pericardium is normal by two-dimensional imaging. There is no significant pericardial effusion. CONCLUSIONS Normal LV size and function. Mild LVH. Estimated EF 60-65% Normal RV size and function The aortic root and ascending aorta are mildly dilated. Mild Jazmin regurgitation. Marielena Guerrero (Electronically Signed) Final Date: 19 October 2024 15:33
[2024-10-18 12:09] LABS: Cult AFB Sendout- Sputum* See Sep Rpt
[2024-10-18] MEDS: HYDROcodone/APAP 10/325 TAB PO (20:14)
[2024-10-18] MEDS: ATORVASTATIN CALCIUM 20 MG TABLET 40 MG PO (21:31)
[2024-10-18] MEDS: MONTELUKAST SODIUM 10 MG TABLET PO (21:31)
[2024-10-18] MEDS: LIDOCAINE 5% 1 PATCH TOP (21:32)
[2024-10-19] VITALS (8 sets, daily range): BP systolic 106–136; BP diastolic 74–88; PULSE 85–102; RESP 15–17; TEMP 36–36.7; O2SAT 91–97; BMI 22.1
[2024-10-19] MEDS: MORPHINE SULF INJ 10 MG/ML VIAL 2 MG IVP ×3 (02:15→20:26)
[2024-10-19] MEDS: HYDROcodone/APAP 10/325 TAB PO (05:34)
[2024-10-19] MEDS: ALPRazoLAM 0.25 MG TABLET 2 MG PO ×3 (05:34→22:33)
[2024-10-19 06:41] LABS: Basophils # (Auto) 0.2 Thou/mm3 (0.0-0.2); Basophils % (Auto) 1 % (0-2.5); Eosinophils % (Auto) 7 % (0-10); Hematocrit 34.9 % (41.0-53.0); Immature Granulocytes % (Auto) 1 % (0-0); Immature Granulocytes Auto 0.19 Thou/mm3 (0.00-0.00); Lymphocytes # (Auto) 2.4 Thou/mm3 (1.0-4.8); Lymphocytes % (Auto) 18 % (10-50); Mean Corpuscular HGB Conc 31.5 g/dl (31.0-37.0); Mean Corpuscular Hemoglobin 27.2 pg (25.0-35.0); Mean Corpuscular Volume 86 fL (80-100); Monocytes # (Auto) 1.3 Thou/mm3 (0.0-0.8); Monocytes % (Auto) 9 % (0-12); Neutrophils # (Auto) 8.8 Thou/mm3 (1.8-7.7); Neutrophils % (Auto) 64 % (37-80); Nucleated Red Blood Cell % 0 /100 WBC (0); Platelet Count 477 Thou/mm3 (140-440); RDW Standard Deviation 46.2 fL (35.1-43.9); Red Blood Count 4.05 Miln/mm3 (4.50-5.90); White Blood Count 13.9 Thou/mm3 (3.8-10.6)
[2024-10-19 06:48] LABS: Alanine Aminotransferase 89 U/L (10-49); Albumin, Serum 4.5 gm/dL (3.4-4.8); Albumin/Globulin Ratio 1.7 (1.2-2.2); Alkaline Phosphatase 100 U/L (46-116); Anion Gap 9 (7-16); Aspartate Amino Transferase 41 U/L (0-34); BUN/Creatinine Ratio 19 Ratio (12-20); Bilirubin,Total 1.1 mg/dL (0.3-1.2); Blood Urea Nitrogen 21 mg/dL (9-23); Calcium 9.3 mg/dL (8.3-10.6); Calcium (Corrected) 9.3 mg/dL (8.5-10.1); Carbon Dioxide 26.1 mMol/L (20.0-31.0); Chloride 94 mMol/L (98-107); Creatinine (Component) 1.1 mg/dL (0.6-1.3); Estimated Creatinine Clearance 58.5 mL/min (>60); Globulin 2.7 gm/dL (2.3-3.5); Glucose 96 mg/dL (74-106); Osmolality,Calculated 261 (275-295); Potassium 4.8 mMol/L (3.4-5.1); Sodium 129 mMol/L (136-145); Total Protein 7.2 gm/dL (5.7-8.2); eGFR > 60 See Note
[2024-10-19] MEDS: SODIUM CHLORIDE 0.9% 1000 ML 1,000 ML 80 ML IV (07:38)
[2024-10-19] MEDS: DOXYCYCLINE 100 MG TABLET PO ×2 (09:29→20:01)
[2024-10-19] MEDS: MIRTAZAPINE 15 MG TABLET PO (09:29)
[2024-10-19] MEDS: GABAPENTIN 300 MG CAPSULE PO ×2 (09:29→20:01)
[2024-10-19] MEDS: PANTOPRAZOLE INJ 40 MG VIAL IVP (09:29)
[2024-10-19] MEDS: CEFEPIME INJ 2 GM in SODIUM CHLORIDE 0.9% (P) 50 ML IV ×2 (09:29→20:01)
[2024-10-19] MEDS: Erythromycin Op Oint 0.5% 1 GM PACKET BOTH EYES (09:29)
[2024-10-19] MEDS: CLOPIDOGREL BISULFATE 75 MG TABLET PO (09:29)
[2024-10-19] MEDS: HYDROcodone/APAP 5/325 TABLET 1 TAB PO ×2 (10:07→16:29)
[2024-10-19 11:50] LABS: Cocci Serology, IgG Negative (Negative)
--- NOTE | 2024-10-19 15:33 | ESPR_ITS ---
Documentation for date of: 10/19/24 Subjective Subjective Interval history: Patient was at bedside this morning. No overnight events. Patient's lung sounds are clear today and he is saturating well on room air. Patient has no new complaints at this time. Still pending AFBs. Echo on 10/18/2024 showed EF 60 to 65%, aortic root and ascending aorta mildly dilated, and mild mitral regurgitation. EKG did show P mitrale. Exam Vital Signs Temp Pulse Resp BP Pulse Ox O2 Del Method O2 Flow Rate 97.9 F 91 15 107/77 97 Nasal Cannula 2 10/19/24 12:00 10/19/24 12:00 10/19/24 12:00 10/19/24 12:00 10/19/24 12:10/19/24 12:10/19/24 12:00 Narrative Exam General: A/O x3, ill appearing Eyes: PERRL, EOMI. clearer conjuctiva, vision grossly intact, bruising around YULIET eyes. Ears: No ear pain, no ear discharge, Hearing grossly intact. Nose: No nasal discharge. Mouth/Throat: Dry mucous membranes, no redness, no lesions. Neck: Neck supple, non-tender, no cervical lymphadenopathy. Lungs: Clear YULIET to auscultation and percussion, No accessory muscle use. Cardio: Normal S1/S2, regular rhythm, systolic ejection murmur with palpable thrill, no JVD Abdomen: Soft, non-tender, no palpable masses, peristalsis present, no guarding or rebound. Extremities: Symmetrical, no significant deformities, no peripheral edema , non-tender, peripheral pulses presents. Skin: No rashes, no lesions, warm to touch. multiple krunal in head laceration due to head trauma, bruising around YULIET eye Neuro: No focal neurological deficits. motor and sensory intact Psych: Cooperative, appropriate mood and effect. Objective Labs 10/20/24 04:15 10/20/24 04:15 Labs: Laboratory Results - last 24 hr 10/16/24 10/19/24 07:34 04:40 WBC 13.9 H RBC 4.05 L Hgb 11.0 L Hct 34.9 L MCV 86 MCH 27.2 MCHC 31.5 RDW Std Deviation 46.2 H Plt Count 477 H D Neut % (Auto) 64 Lymph % (Auto) 18 Heard % (Auto) 9 Eos % (Auto) 7 Baso % (Auto) 1 Neut # (Auto) 8.8 H Lymph # (Auto) 2.4 Heard # (Auto) 1.3 H Eos # (Auto) 1.0 H Baso # (Auto) 0.2 Immature Gran # (Auto) 0.19 H Absolute Nucleated RBC 0.00 Immature Gran % 1 H Nucleated RBC % 0 Sodium 129 L Potassium 4.8 Chloride 94 L Carbon Dioxide 26.1 Anion Gap 9 BUN 21 Creatinine 1.1 Estim Creat Clear Calc 58.5 L eGFR > 60 BUN/Creatinine Ratio 19 Glucose 96 Calculated Osmolality 261 L Calcium 9.3 Corrected Calcium 9.3 Total Bilirubin 1.1 AST 41 H ALT 89 H Alkaline Phosphatase 100 D Total Protein 7.2 Albumin 4.5 Globulin 2.7 Albumin/Globulin Ratio 1.7 Coccidioides IgG Ab Negative ABG Interpretation ABG results: 10/15/24 19:01 ABG pH 7.39 ABG pCO2 37 ABG pO2 106 ABG HCO3 23 ABG O2 Saturation 99 H ABG Base Excess -2 Quality Measures Quality Measures VTE prophylaxis Advance care planning discussed with:: patient Assessment & Plan Assessment Current Active Medications: Generic Name Dose Route Start Last Admin Trade Name Freq PRN Reason Stop Dose Admin Acetaminophen 650 mg 10/15/24 23:02 Acetaminophen 325 Mg Tablet PO 11/14/24 23:01 Q4HR PRN PAIN SCALE 1-3 (mild Hydrocodone Bitart/Acetaminophen 1 tab 10/19/24 09:25 10/19/24 10:07 Hydrocodone/Apap 5/325 Tablet PO 10/24/24 09:24 1 tab Q4HR PRN Administration PAIN SCALE 4-6 (Moderate Alprazolam 2 mg 10/16/24 16:20 10/19/24 13:31 Alprazolam 0.25 Mg Tablet PO 10/21/24 16:19 2 mg TID SENG Administration Atorvastatin Calcium 40 mg 10/17/24 21:00 10/18/24 21:31 Atorvastatin Calcium 20 Mg Tablet PO 11/16/24 20:59 40 mg QPM SENG Administration Clopidogrel Bisulfate 75 mg 10/17/24 13:15 10/19/24 09:29 Clopidogrel Bisulfate 75 Mg Tablet PO 11/16/24 13:14 75 mg DAILY SENG Administration Doxycycline Hyclate 100 mg 10/17/24 09:15 10/19/24 09:29 Doxycycline 100 Mg Tablet PO 10/24/24 09:14 100 mg BID SENG Administration Erythromycin 1 gm 10/17/24 13:45 10/19/24 09:29 Erythromycin Op Oint 0.5% 1 Gm Packet BOTH EYES 11/16/24 13:44 1 gm QDAY SENG Administration Gabapentin 300 mg 10/16/24 09:00 10/19/24 09:29 Gabapentin 300 Mg Capsule PO 11/15/24 08:59 300 mg BID SENG Administration Cefepime HCl 2 gm/ Sodium 50 mls @ 100 mls/hr 10/17/24 09:16 10/19/24 09:29 Chloride IV 10/24/24 09:15 100 mls/hr Q12HR SENG Administration Sodium Chloride 1,000 mls @ 80 mls/hr 10/19/24 07:30 10/19/24 07:38 Ns IV 10/19/24 19:59 80 mls/hr .[id number] SENG Administration Lidocaine 1 patch 10/18/24 10:14 10/18/24 21:32 Lidocaine 5% 1 Patch TOP 11/17/24 10:13 1 patch UD PRN Administration PAIN Mirtazapine 15 mg 10/17/24 09:00 10/19/24 09:29 Mirtazapine 15 Mg Tablet PO 11/16/24 08:59 15 mg QDAY SENG Administration Montelukast Sodium 10 mg 10/16/24 21:00 10/18/24 21:31 Montelukast Sodium 10 Mg Tablet PO 11/15/24 20:59 10 mg QPM SENG Administration Morphine Sulfate 2 mg 10/19/24 09:25 10/19/24 13:19 Morphine Sulf Inj 10 Mg/Ml Vial IVP 10/24/24 09:24 2 mg Q4HR PRN Administration PAIN SCALE 7-10 (Severe Pantoprazole Sodium 40 mg 10/16/24 09:00 10/19/24 09:29 Pantoprazole Inj 40 Mg Vial IVP 11/15/24 08:59 40 mg QDAY SENG Administration (Fluticasone Furoate 1 ea 10/16/24 09:00 10/19/24 09:32 [Arnuity Ellipta] INH 11/15/24 08:59 Not Given 200 Mcg/Actuation) QDAY SENG Protocol Sumatriptan Succinate 100 mg 10/17/24 07:30 12/24/24 08:51 Sumatriptan 25 Mg Tablet PO 11/16/24 07:29 100 mg Q2H PRN Administration migraine (max 2 doses in 24hr) Plan 69-year-old male with past medical history of CAD s/p CABG, hypertension, hyperlipidemia, asthma, and BPH was admitted to the hospital on 10/16/2024 due to septic shock likely secondary to hospital-acquired pneumonia. #Systolic ejection murmur ?Patient on physical assessment had a new onset systolic ejection murmur with palpable thrill which was not present on prior physical exams. ? Patient does have a history of CAD status post CABG ? Patient denies any dizziness syncopal episodes, chest pain, or palpitations. -Echo on 10/18/2024 showed EF 60 to 65%, aortic root and ascending aorta mildly dilated, and mild mitral regurgitation. -EKG did show P mitrale. Plan: ?Cardio consulted, appreciate recommendations #Septic shock, resolved #Acute hypoxic respiratory failure secondary to #Hospital-acquired pneumonia #Multiloculated cavitary lesion #Lactic acidosis, resolved #Leukocytosis ?Patient initially had to be admitted to the ICU given the need for vasopressors given blood pressure below 65. ?DDx hospital-acquired pneumonia given recent hospital admission versus community-acquired pneumonia versus TB given multiloculated cavitary lesion versus aspergillosis ? Patient is currently off pressors and is saturating well on room air and maintaining a MAP above 65. ?Initial lactic acid was 2.2 and up trended to 4.4 and down trended to 1.5 ?Patient received fluconazole, doxycycline, and Rocephin while in the ICU. ?WBC 13.9 today ? Blood cultures have been negative Plan: ?Continue patient on doxycycline and cefepime [10/17/2024? ] ? Pending QuantiFERON and AFBs ? Will continue to monitor #Transaminitis ?AST 41 and ALT was 89 today Plan: ? Will continue to monitor #MATHIEU, resolved ? Patient came in with creatinine 2.2 and BUN 42 on admission ? Creatinine baseline is 1 ? Creatinine today is 1.1 Plan: ? Avoid nephrotoxic agents ?Renally dose medications ? Will continue to monitor #Normocytic normochromic anemia ? Patient's baseline hemoglobin is around 15 from prior visits ? Hemoglobin 8.3 on admission and currently at 11 ? No active signs of bleeding Plan: ?Will transfuse hemoglobin less than 7 ? Will continue to monitor #Hx of recent head trauma #Acute thoracic and lumbar fractures ?Cervical spine showed acute fractures of T1 and T2 ? Abdomen/pelvis CT showed fracture of L2 and L1 ?Patient was attempted to be transferred to [facility], but was unsuccessful as they said that patient did not need any intervention at this time and could be treated medically. Plan: ?Will continue with pain control medication with [place] for pain scale 4-6 and morphine for pain scale 7-10. -Continue lidocaine patch ? Will continue to monitor #Hx of CAD s/p CABG #Hyperlipidemia ?Continue patient's Plavix and atorvastatin #Hx of hypertension ?Will hold off on any antihypertensive medication at this time given patient's recent septic shock and blood pressures has been on the softer end today. Disposition: Patient seen in telemetry continue cefepime and doxy for possible HAP, ordered echo and EKG due to new systolic ejection murmur. Diet: Low sodium and dysphagia 2 GI prophylaxis: PPI DVT prophylaxis: SCDs Code: Full code Case disclosed with Attending Dr. Payne and My senior Dr. Harrington PGY2. Tank Coyle PGY1 L Mr Espinoza is a 69 year male with past medical history of CAD s/p CABG, hypertension, hyperlipidemia, asthma, and BPH was admitted to the ICU on 10/16/2024 due to septic shock likely secondary to hospital-acquired pneumonia. He recently underwent extensive procedures after a head injury at [facility], with scalp stitches still in place. Periorbital ecchymosis is improving. He was downgraded from the ICU to medical floors for continued care. Ordered TLSO brace for thoracic fractures noted on CT. Patient is otherwise neurologically intact. He is on room air and denies any shortness of breath or chest pain. PT evaluation ordered. On erythromycin eyedrops for bacterial conjunctivitis. Will continue with IV cefepime qD and p.o. doxycycline twice daily, to cover for pseudomonas and MRSA pneumonia. Patient remains on isolation for TB rule out. Currently patient remains AO x 4, AFB cultures pending. Will follow-up with [facility] regarding timeline, as patient is recently lost her spouse and would like to get home for burial services. Patient examined and case discussed with the team including attending physician. Note reviewed, I agree with the care plan as documented. - Ravi Harrington MD, PGY 2 Attending Provider Attestation/Addendum I have discussed and was present for the essential components of the history, physical examination, diagnosis, and treatment plan with the resident. I agree with the patient's care as documented by the resident and amended herein by me. Eladio Payne DO. Although this document has been carefully reviewed, there may still be some phonetic and other typographical errors. These errors are purely grammatical due to imperfections in the software program and should not be construed in any way to compromise the substance of the patient's medical care during this visit.
--- NOTE | 2024-10-19 19:01 | ESCONSULT_ITS ---
<Statement entered by Timmy Leo MD - 10/21/24 10:28> I personally examined evaluate the patient who has loud systolic murmur but no cardiac symptoms or limitation known history of CAD bypass surgery has loud systolic murmur systolic murmur physically echo showed evidence of mild to moderate mitral regurgitation no significant concerns at this time agree with treatment plan recommendation as formulated with PGY 2 Dr. Yonathan GUZMÁN Data of Consult Requesting Physician: Frankie Myrick MD Admitting Provider: Frankie Myrick MD Attending Provider: Frankie Myrick MD Primary Care Provider: Vaibhav Langston MD Consult Narrative History of present illness: 69-year-old male patient with significant medical history for CAD SP CABG, hypertension, hyperlipidemia, asthma and BPH with a recent head injury requiring admission at [facility], was brought from [facility] with complaints of shortness of breath and generalized weakness on 10/15/2024. In ED patient was found to be hypertensive blood labs significant for leukocytosis, anemia, lactic acidosis, elevated creatinine and transaminitis. Further imaging indicated T1 and T2 and L1-L2 fractures which are chronic secondary to accident. Imaging also indicated cavitary lung lesion. Patient was initially admitted to ICU for septic shock due to pneumonia with concerns for fungal and TB. In ICU patient did not require intubation, was on pressors for a day and then downgraded to regular floors. Cocci serology was negative, blood cultures has been negative with no growth so for and patient pending AFB. Cardiology was consulted regarding holosystolic murmur with radiation to the axilla that was not there during admission. 10/19/2024: Patient states he had CABG more than 20 years ago, follows up with motor assembler in [place] and has never been told that he has a heart condition. Per patient he follows up with his motor assembler every 3 to 4 months. Echocardiogram completed during this stay in the hospital indicated normal EF with mild dilation of the left atria and mild mitral regurgitation. Patient's physical exam indicative of mitral regurgitation. Patient is asymptomatic, no further recommendations per cardiology. Patient can follow-up with PCP and his motor assembler as an outpatient setting. Cardiology team will sign off on the patient, thank you for allowing us on this consultation. cc:: cc: Frankie Myrick MD Review of Systems Review of Systems Systems Reviewed: All systems reviewed, normal except as documented Exam Vital Signs Temp Pulse Resp BP Pulse Ox O2 Del Method O2 Flow Rate 97.3 F 85 16 111/77 91 L Room Air 2 10/19/24 16:00 10/19/24 16:00 10/19/24 16:00 10/19/24 16:00 10/19/24 16:00 10/19/24 16:00 10/19/24 12:00 Narrative Exam Constitutional: Frail looking elderly, in no acute distress, lying in bed HEENT: Scalp laceration with sutures notes on right tempoparietal region, b/l periorbital bruises, EOMI, reactive round pupils b/l, patent nares b/l, moist mucous membranes Lung: CTAB, no wheezing, no rhonchi Heart: Holosystolic murmur at apex with radiation to axila, no gallops or rubs Abdomen: Soft, non-distended, non-tender, bowel sounds present throughout Extremities: No cyanosis, clubbing, or edema, LE pulses present b/l Neurologic: No focal sensory or motor deficits noted, AOx3, appropriate affect Skin: Warm, dry, no lesions or rashes noted Results Labs 10/19/24 04:40 10/19/24 04:40 Labs: Short CBC 10/19/24 Range/Units 04:40 WBC 13.9 H (3.8-10.6) Thou/mm3 Hgb 11.0 L (13.5-16.0) g/dL Hct 34.9 L (41.0-53.0) % Plt Count 477 H D (140-440) Thou/mm3 BMP 10/19/24 04:40 Sodium 129 L Potassium 4.8 Chloride 94 L Carbon Dioxide 26.1 BUN 21 Creatinine 1.1 Glucose 96 Calcium 9.3 Liver Function 10/19/24 Range/Units 04:40 Total Bilirubin 1.1 (0.3-1.2) mg/dL AST 41 H (0-34) U/L ALT 89 H (10-49) U/L Alkaline Phosphatase 100 D (46-116) U/L Albumin 4.5 (3.4-4.8) gm/dL ABG Interpretation ABG results: 10/15/24 19:01 ABG pH 7.39 ABG pCO2 37 ABG pO2 106 ABG HCO3 23 ABG O2 Saturation 99 H ABG Base Excess -2 Quality Measures Quality Measures VTE prophylaxis Advance care planning discussed with:: other Medications Home Medications and Allergies Home Medications ?Medication ?Instructions ?Recorded ?Confirmed ?Type alprazolam 1 mg tablet 2 mg PO TID ##0 12/26/13 10/15/24 History carvedilol 3.125 mg tablet 3.125 mg PO BID 30 days ##0 12/26/13 10/15/24 History montelukast 10 mg tablet 10 mg PO QPM 04/13/19 10/15/24 History atorvastatin 40 mg tablet (Lipitor) 40 mg PO QPM 05/14/22 10/15/24 History benazepril 40 mg tablet 40 mg PO BID 05/14/22 10/15/24 History clopidogrel 75 mg tablet 75 mg PO DAILY 05/14/22 10/15/24 History hydrocodone 10 mg-acetaminophen 1 tab PO QID PRN Pain 05/14/22 10/15/24 History 325 mg tablet pantoprazole 40 mg tablet,delayed 40 mg PO BID 05/14/22 10/15/24 History release tizanidine 4 mg tablet 4 mg PO BID PRN Spasms 05/14/22 10/15/24 History gabapentin 300 mg capsule 300 mg PO BID 08/28/22 10/15/24 History sumatriptan succinate 100 mg 100 mg PO Q2H PRN migraines 01/18/23 10/15/24 History tablet (Imitrex) albuterol sulfate 90 mcg/actuation 1 puff inhalation Q6H PRN Wheezing 10/15/24 10/15/24 History aerosol inhaler fenofibrate nanocrystallized 145 145 mg PO QAM 10/15/24 10/15/24 History mg tablet fluticasone furoate 200 1 inh inhalation QDAY 10/15/24 10/16/24 History mcg/actuation blister powder for inhalation (Arnuity Ellipta) ketoconazole 2 % shampoo 1 applic topical Q OTHER DAY PRN 10/15/24 10/15/24 History Dry Skin Allergies Allergy/AdvReac Type Severity Reaction Status Date / Time metoclopramide Allergy Mild Dizziness, Verified 08/18/23 12:04 FEELS WEIRD Visit Medications Acetaminophen (Acetaminophen 325 Mg Tablet) 650 mg PO Q4HR PRN PRN Reason: PAIN SCALE 1-3 (mild Stop: 11/14/24 23:01 Hydrocodone Bitart/Acetaminophen (Hydrocodone/Apap 5/325 Tablet) 1 tab PO Q4HR PRN PRN Reason: PAIN SCALE 4-6 (Moderate Stop: 10/24/24 09:24 Last Admin: 10/19/24 16:29 Dose: 1 tab Alprazolam (Alprazolam 0.25 Mg Tablet) 2 mg PO TID SENG Stop: 10/21/24 16:19 Last Admin: 10/19/24 13:31 Dose: 2 mg Atorvastatin Calcium (Atorvastatin Calcium 20 Mg Tablet) 40 mg PO QPM SENG Stop: 11/16/24 20:59 Last Admin: 10/18/24 21:31 Dose: 40 mg Clopidogrel Bisulfate (Clopidogrel Bisulfate 75 Mg Tablet) 75 mg PO DAILY SENG Stop: 11/16/24 13:14 Last Admin: 10/19/24 09:29 Dose: 75 mg Doxycycline Hyclate (Doxycycline 100 Mg Tablet) 100 mg PO BID SENG Stop: 10/24/24 09:14 Last Admin: 10/19/24 09:29 Dose: 100 mg Erythromycin (Erythromycin Op Oint 0.5% 1 Gm Packet) 1 gm BOTH EYES QDAY SENG Stop: 11/16/24 13:44 Last Admin: 10/19/24 09:29 Dose: 1 gm Gabapentin (Gabapentin 300 Mg Capsule) 300 mg PO BID SENG Stop: 11/15/24 08:59 Last Admin: 10/19/24 09:29 Dose: 300 mg Cefepime HCl 2 gm/ Sodium (Chloride) 50 mls @ 100 mls/hr IV Q12HR SENG Stop: 10/24/24 09:15 Last Admin: 10/19/24 09:29 Dose: 100 mls/hr Sodium Chloride (Ns) 1,000 mls @ 80 mls/hr IV .[id number] SENG Stop: 10/19/24 19:59 Last Admin: 10/19/24 07:38 Dose: 80 mls/hr Lidocaine (Lidocaine 5% 1 Patch) 1 patch TOP UD PRN PRN Reason: PAIN Stop: 11/17/24 10:13 Last Admin: 10/18/24 21:32 Dose: 1 patch Mirtazapine (Mirtazapine 15 Mg Tablet) 15 mg PO QDAY SENG Stop: 11/16/24 08:59 Last Admin: 10/19/24 09:29 Dose: 15 mg Montelukast Sodium (Montelukast Sodium 10 Mg Tablet) 10 mg PO QPM [facility] Stop: 11/15/24 20:59 Last Admin: 10/18/24 21:31 Dose: 10 mg Morphine Sulfate (Morphine Sulf Inj 10 Mg/Ml Vial) 2 mg IVP Q4HR PRN PRN Reason: PAIN SCALE 7-10 (Severe Stop: 10/24/24 09:24 Last Admin: 10/19/24 13:19 Dose: 2 mg Pantoprazole Sodium (Pantoprazole Inj 40 Mg Vial) 40 mg IVP QDAY [facility] Stop: 11/15/24 08:59 Last Admin: 10/19/24 09:29 Dose: 40 mg (Fluticasone Furoate [Arnuity Ellipta] 200 Mcg/Actuation) 1 ea INH QDAY [facility]; Protocol Stop: 11/15/24 08:59 Last Admin: 10/19/24 09:32 Dose: Not Given Sumatriptan Succinate (Sumatriptan 25 Mg Tablet) 100 mg PO Q2H PRN PRN Reason: migraine (max 2 doses in 24hr) Stop: 11/16/24 07:29 Last Admin: 10/17/24 08:51 Dose: 100 mg Discontinued Medications Hydrocodone Bitart/Acetaminophen (Hydrocodone/Apap 5/325 Tablet) 1 tab PO Q6HR PRN PRN Reason: PAIN SCALE 4-6 (Moderate Stop: 10/21/24 03:39 Hydrocodone Bitart/Acetaminophen (Hydrocodone/Apap 10/325 Tab) 1 tab PO QID PRN PRN Reason: PAIN SCALE 4-6 (Moderate Stop: 10/21/24 04:19 Last Admin: 10/19/24 05:34 Dose: 1 tab Albuterol (Albuterol Inh 8 Gm) 1 puff INH Q6H PRN PRN Reason: Wheezing Stop: 11/15/24 00:10 Albuterol/Ipratropium (Albuterol/Ipratropium (Duoneb) Rt Shanelle 3 Ml Nebu) 3 ml INH Q4HRRT [facility] Stop: 11/15/24 02:59 Last Admin: 10/19/24 10:58 Dose: Not Given Alprazolam (Alprazolam 0.25 Mg Tablet) 0.25 mg PO X1 ONE Stop: 10/15/24 23:21 Last Admin: 10/16/24 00:00 Dose: 0.25 mg Dextrose (Dextrose 50%-Water Inj 50 Ml Syringe) 25 ml IV Q15MIN PRN PRN Reason: BG 50-70 responsive npo pt Stop: 11/15/24 00:09 Dextrose (Dextrose 50%-Water Inj 50 Ml Syringe) 50 ml IV Q15MIN PRN PRN Reason: BG <50 OR BG <70 & pt unresponsive Stop: 11/15/24 00:09 Erythromycin (Erythromycin Op Oint 0.5% 1 Gm Packet) 1 gm BOTH EYES X1 ONE Stop: 10/17/24 13:31 Last Admin: 10/17/24 14:30 Dose: Not Given Famotidine (Famotidine Inj 10 Mg/Ml Vial 2 Ml) 20 mg IVP X1 ONE Stop: 10/15/24 21:00 Last Admin: 10/15/24 21:37 Dose: 20 mg Glucagon (Glucagon Inj 1 Mg Vial) 1 mg IM Q15MIN PRN PRN Reason: BG <70, and no IV access Norepinephrine/Dextrose (Levophed In D5w 8mg/250ml) 8 mg in 250 mls @ 6.818 mls/hr IV .Q24H PRN; Protocol PRN Reason: PER PROTOCOL Stop: 11/14/24 17:22 Last Titration: 10/16/24 05:55 Dose: 0 mcg/kg/min, 0 mls/hr Sodium Chloride (Ns) 1,000 mls @ 999 mls/hr IV .Q1H1M ONE Stop: 10/15/24 18:33 Last Infusion: 10/15/24 18:08 Dose: 0 mls/hr Octreotide Acetate 1,000 mcg/ (Sodium Chloride) 102 mls @ 5.1 mls/hr IV .Q20H ONE; Protocol Stop: 10/16/24 17:00 Last Infusion: 10/16/24 03:15 Dose: Infused Ceftriaxone Sodium/Dextrose (Rocephin/D5w 1gm Iv Premix) 50 mls @ 100 mls/hr IV X1 ONE Stop: 10/15/24 21:35 Last Infusion: 10/15/24 22:07 Dose: Infused Fluconazole (Diflucan/Ns Ivpb) 400 mg in 200 mls @ 100 mls/hr IV QDAY SENG Stop: 10/22/24 23:15 Fluconazole (Diflucan/Ns Ivpb) 400 mg in 200 mls @ 100 mls/hr IV X1 ONE Stop: 10/16/24 01:24 Last Admin: 10/16/24 04:28 Dose: 100 mls/hr Cefepime HCl 2 gm/ Sodium (Chloride) 50 mls @ 100 mls/hr IV X1 ONE Stop: 10/15/24 23:52 Last Infusion: 10/16/24 00:37 Dose: Infused Doxycycline Hyclate 200 mg/ (Sodium Chloride) 250 mls @ 125 mls/hr IV X1 ONE Stop: 10/16/24 01:21 Last Infusion: 10/16/24 03:20 Dose: Infused Doxycycline Hyclate 100 mg/ (Sodium Chloride) 100 mls @ 100 mls/hr IV BID SENG Stop: 10/23/24 08:59 Last Admin: 10/16/24 09:17 Dose: 100 mls/hr Lactated Ringer's (Lactated Ringers) 1,000 mls @ 999 mls/hr IV .Q1H1M ONE Stop: 10/16/24 00:42 Last Infusion: 10/16/24 01:07 Dose: Infused Cefepime HCl 2 gm/ Sodium (Chloride) 50 mls @ 100 mls/hr IV Q12HR [facility]; Protocol Stop: 10/23/24 08:59 Last Admin: 10/16/24 09:10 Dose: 100 mls/hr Lactated Ringer's (Lactated Ringers) 1,000 mls @ 100 mls/hr IV .Q10H [facility] Stop: 10/16/24 11:44 Last Infusion: 10/16/24 16:49 Dose: Infused Ceftriaxone Sodium 2 gm/ (Sodium Chloride) 50 mls @ 100 mls/hr IV QDAY SENG Stop: 10/24/24 08:59 Last Admin: 10/17/24 08:49 Dose: 100 mls/hr Morphine Sulfate (Morphine Sulf Inj 10 Mg/Ml Vial) 4 mg IVP X1 ONE Stop: 10/15/24 20:50 Last Admin: 10/15/24 21:21 Dose: 4 mg Morphine Sulfate (Morphine Sulf Inj 10 Mg/Ml Vial) 2 mg IVP X1 ONE Stop: 10/16/24 03:38 Last Admin: 10/16/24 04:14 Dose: 2 mg Morphine Sulfate (Morphine Sulf Inj 10 Mg/Ml Vial) 2 mg IVP Q4HR PRN PRN Reason: PAIN Stop: 10/21/24 03:36 Morphine Sulfate (Morphine Sulf Inj 10 Mg/Ml Vial) 2 mg IVP Q4HR PRN PRN Reason: PAIN SCALE 7-10 (Severe Stop: 10/21/24 03:36 Last Admin: 10/19/24 02:15 Dose: 2 mg Non-Formulary Medication (Fluticasone Furoate [Arnuity Ellipta]) 1 inh IH QDAY SENG Stop: 11/15/24 08:59 Octreotide Acetate (Octreotide Acet Inj 50 Mcg/Ml Vial) 50 mcg IV X1 ONE Stop: 10/15/24 21:01 Last Admin: 10/15/24 21:58 Dose: 50 mcg Ondansetron HCl (Ondansetron Inj 2 Mg/Ml Inj 2 Ml) 4 mg IV X1 ONE; Protocol Stop: 10/15/24 20:51 Last Admin: 10/15/24 21:14 Dose: 4 mg Pantoprazole Sodium (Pantoprazole Inj 40 Mg Vial) 80 mg IV X1 ONE Stop: 10/15/24 21:00 Last Admin: 10/15/24 21:48 Dose: 80 mg Pantoprazole Sodium (Pantoprazole Inj 40 Mg Vial) 40 mg IVP BID [facility] Stop: 11/15/24 08:59 Sodium Chloride (Sodium Chloride Rt 10% 15 Ml Nebu) 5 ml INH X1 ONE Stop: 10/15/24 23:13 Last Admin: 10/16/24 02:13 Dose: 5 ml Assessment & Plan Plan 69-year-old male patient with significant medical history for CAD SP CABG, hypertension, hyperlipidemia, asthma and BPH with a recent head injury requiring admission at [facility], was brought from SNF with complaints of shortness of breath and generalized weakness on 10/15/2024. Patient admitted for septic shock secondary to pneumonia, pending TB rule out. #Valvular disease #Mitral regurgitation Patient with history of CAD s/p CABG, HTN and hyperlipidemia Echocardiogram indicated normal EF with mild MR Physical exam significant for holosystolic murmur best heard at the apex of the heart Patient denies chest pain/pressure, dizziness, palpitations or other associate symptoms Plan: ? Follow-up with PCP and motor assembler and outpatient setting #AHRF secondary to #Pneumonia #TB rule out #HLD #BPH #HTN -Management per primary team This patient care was discussed with my attending Dr. Ahmet Bonilla MD PGY-2 Disclaimer: Minor errors in media buyer may be present since this note was dictated by speech recognition software.
[2024-10-19] MEDS: ATORVASTATIN CALCIUM 20 MG TABLET 40 MG PO (20:01)
[2024-10-19] MEDS: MONTELUKAST SODIUM 10 MG TABLET PO (20:26)
[2024-10-20] VITALS (11 sets, daily range): BP systolic 101–115; BP diastolic 63–84; PULSE 81–121; RESP 14–20; TEMP 35.9–36.7; O2SAT 94–97; BMI 22.6; BMI 22.2; BMI 11.0
[2024-10-20] MEDS: HYDROcodone/APAP 5/325 TABLET 1 TAB PO ×3 (00:08→18:33)
[2024-10-20] MEDS: MORPHINE SULF INJ 10 MG/ML VIAL 2 MG IVP ×5 (02:02→21:05)
[2024-10-20 06:40] LABS: Alanine Aminotransferase 60 U/L (10-49); Albumin, Serum 3.9 gm/dL (3.4-4.8); Albumin/Globulin Ratio 1.7 (1.2-2.2); Alkaline Phosphatase 99 U/L (46-116); Anion Gap 8 (7-16); Aspartate Amino Transferase 26 U/L (0-34); BUN/Creatinine Ratio 23 Ratio (12-20); Bilirubin,Total 0.9 mg/dL (0.3-1.2); Blood Urea Nitrogen 21 mg/dL (9-23); Calcium 8.5 mg/dL (8.3-10.6); Calcium (Corrected) 8.6 mg/dL (8.5-10.1); Carbon Dioxide 22.6 mMol/L (20.0-31.0); Chloride 100 mMol/L (98-107); Creatinine (Component) 0.9 mg/dL (0.6-1.3); Estimated Creatinine Clearance 73.1 mL/min (>60); Globulin 2.3 gm/dL (2.3-3.5); Glucose 83 mg/dL (74-106); Osmolality,Calculated 264 (275-295); Sodium 131 mMol/L (136-145); Total Protein 6.2 gm/dL (5.7-8.2); eGFR > 60 See Note
[2024-10-20 07:27] LABS: Basophils # (Auto) 0.2 Thou/mm3 (0.0-0.2); Basophils % (Auto) 1 % (0-2.5); Eosinophils # (Auto) 0.9 Thou/mm3 (0.0-0.5); Eosinophils % (Auto) 9 % (0-10); Hematocrit 31.3 % (41.0-53.0); Hemoglobin 9.8 g/dL (13.5-16.0); Immature Granulocytes % (Auto) 1 % (0-0); Immature Granulocytes Auto 0.14 Thou/mm3 (0.00-0.00); Lymphocytes # (Auto) 1.9 Thou/mm3 (1.0-4.8); Lymphocytes % (Auto) 18 % (10-50); Mean Corpuscular HGB Conc 31.3 g/dl (31.0-37.0); Mean Corpuscular Hemoglobin 27.4 pg (25.0-35.0); Mean Corpuscular Volume 87 fL (80-100); Monocytes % (Auto) 9 % (0-12); Neutrophils # (Auto) 6.4 Thou/mm3 (1.8-7.7); Neutrophils % (Auto) 62 % (37-80); Nucleated Red Blood Cell % 0 /100 WBC (0); Platelet Count 414 Thou/mm3 (140-440); RDW Standard Deviation 45.2 fL (35.1-43.9); Red Blood Count 3.58 Miln/mm3 (4.50-5.90); White Blood Count 10.4 Thou/mm3 (3.8-10.6)
--- NOTE | 2024-10-20 07:54 | ESPR_ITS ---
Documentation for date of: 10/20/24 Subjective Subjective Interval history: Patient seen and examined at bedside this morning. Vitals, labs reviewed. Remains on 1 L nasal cannula, with MAP >65. Leukocytosis is resolved. QuantiFERON was negative. Pending AFB sputum's to rule out TB. Will continue with cefepime and Doxy for HCAP at this time. At bedside, patient is drinking Ensure. He states he had poor sleep due to multiple interruptions overnight. Exam Vital Signs Temp Pulse Resp BP Pulse Ox O2 Del Method O2 Flow Rate 97.1 F 85 17 101/71 95 Nasal Cannula 1 10/20/24 07:52 10/20/24 07:52 10/20/24 07:52 10/20/24 07:52 10/20/24 07:52 10/20/24 07:52 10/20/24 07:52 Narrative Exam Gen: AAOx3, frail elderly male, HEENT: PERRLA, EOMI, MMM, significant periorbital bruising and laceration with stitches on head noted CVS: Holosystolic murmur appreciated at apex Resp: Mild wheeze bilaterally, with decreased breath sounds on right Abd: soft, non-tender, non-distended. BS+ in all 4 quadrants : Ball in place; urine without hematuria/clots/sediment MSK: Good ROM in BUE & BLE. No edema or rash. Neuro: CN II-XII grossly intact. Strength 5/5 in BUE & BLE. Objective Labs 10/20/24 04:15 10/20/24 04:15 Labs: Laboratory Results - last 24 hr 10/16/24 10/20/24 07:34 04:15 WBC 10.4 RBC 3.58 L Hgb 9.8 L Hct 31.3 L MCV 87 MCH 27.4 MCHC 31.3 RDW Std Deviation 45.2 H Plt Count 414 D Neut % (Auto) 62 Lymph % (Auto) 18 [place] % (Auto) 9 Eos % (Auto) 9 Baso % (Auto) 1 Neut # (Auto) 6.4 Lymph # (Auto) 1.9 [place] # (Auto) 1.0 H Eos # (Auto) 0.9 H Baso # (Auto) 0.2 Immature Gran # (Auto) 0.14 H Absolute Nucleated RBC 0.00 Immature Gran % 1 H Nucleated RBC % 0 Sodium 131 L Potassium 4.0 D Chloride 100 Carbon Dioxide 22.6 Anion Gap 8 BUN 21 Creatinine 0.9 Estim Creat Clear Calc 73.1 eGFR > 60 BUN/Creatinine Ratio 23 H Glucose 83 Calculated Osmolality 264 L Calcium 8.5 Corrected Calcium 8.6 Total Bilirubin 0.9 AST 26 ALT 60 H Alkaline Phosphatase 99 Total Protein 6.2 Albumin 3.9 D Globulin 2.3 Albumin/Globulin Ratio 1.7 Coccidioides IgG Ab Negative TB Test (QFT) See Sep Rpt ABG Interpretation ABG results: 10/15/24 19:01 ABG pH 7.39 ABG pCO2 37 ABG pO2 106 ABG HCO3 23 ABG O2 Saturation 99 H ABG Base Excess -2 Quality Measures Quality Measures VTE prophylaxis Advance care planning discussed with:: patient Assessment & Plan Assessment Current Active Medications: Generic Name Dose Route Start Last Admin Trade Name Freq PRN Reason Stop Dose Admin Acetaminophen 650 mg 10/15/24 23:02 Acetaminophen 325 Mg Tablet PO 11/14/24 23:01 Q4HR PRN PAIN SCALE 1-3 (mild Hydrocodone Bitart/Acetaminophen 1 tab 10/19/24 09:25 10/20/24 00:08 Hydrocodone/Apap 5/325 Tablet PO 10/24/24 09:24 1 tab Q4HR PRN Administration PAIN SCALE 4-6 (Moderate Atorvastatin Calcium 40 mg 10/17/24 21:00 10/19/24 20:01 Atorvastatin Calcium 20 Mg Tablet PO 11/16/24 20:59 40 mg QPM SENG Administration Clopidogrel Bisulfate 75 mg 10/17/24 13:15 10/19/24 09:29 Clopidogrel Bisulfate 75 Mg Tablet PO 11/16/24 13:14 75 mg DAILY SENG Administration Doxycycline Hyclate 100 mg 10/17/24 09:15 10/19/24 20:01 Doxycycline 100 Mg Tablet PO 10/24/24 09:14 100 mg BID SENG Administration Erythromycin 1 gm 10/17/24 13:45 10/19/24 09:29 Erythromycin Op Oint 0.5% 1 Gm Packet BOTH EYES 11/16/24 13:44 1 gm QDAY SENG Administration Gabapentin 300 mg 10/16/24 09:00 10/19/24 20:01 Gabapentin 300 Mg Capsule PO 11/15/24 08:59 300 mg BID SENG Administration Cefepime HCl 2 gm/ Sodium 50 mls @ 100 mls/hr 12/24/24 09:16 10/19/24 20:01 Chloride IV 10/24/24 09:15 100 mls/hr Q12HR SENG Administration Lidocaine 1 patch 10/18/24 10:14 10/18/24 21:32 Lidocaine 5% 1 Patch TOP 11/17/24 10:13 1 patch UD PRN Administration PAIN Mirtazapine 15 mg 10/17/24 09:00 10/19/24 09:29 Mirtazapine 15 Mg Tablet PO 11/16/24 08:59 15 mg QDAY SENG Administration Montelukast Sodium 10 mg 10/16/24 21:00 10/19/24 20:26 Montelukast Sodium 10 Mg Tablet PO 11/15/24 20:59 10 mg QPM SENG Administration Morphine Sulfate 2 mg 10/19/24 09:25 10/20/24 02:02 Morphine Sulf Inj 10 Mg/Ml Vial IVP 10/24/24 09:24 2 mg Q4HR PRN Administration PAIN SCALE 7-10 (Severe Pantoprazole Sodium 40 mg 10/16/24 09:00 10/19/24 09:29 Pantoprazole Inj 40 Mg Vial IVP 11/15/24 08:59 40 mg QDAY SENG Administration (Fluticasone Furoate 1 ea 10/16/24 09:00 10/19/24 09:32 [Arnuity Ellipta] INH 11/15/24 08:59 Not Given 200 Mcg/Actuation) QDAY SENG Protocol Sennosides 1 tab 10/20/24 09:00 Senna Tablet PO 11/19/24 08:59 QDAY SENG Protocol Sumatriptan Succinate 100 mg 10/17/24 07:30 10/17/24 08:51 Sumatriptan 25 Mg Tablet PO 11/16/24 07:29 100 mg Q2H PRN Administration migraine (max 2 doses in 24hr) Plan Patient is a 69-year-old male with history of CAD s/p CABG, HTN, HLD, asthma, BPH who was admitted to the ICU for septic shock, likely secondary to hospital- acquired pneumonia. Imaging was concerning for cavitary lesion, therefore testing for TB rule out was ordered. Additionally, patient had a recent traumatic head injury with thoracic and lumbar spine fractures for which she was seen at [facility]. No neurosurgical intervention is needed. #Septic shock, resolved #Acute hypoxic respiratory failure secondary to #Hospital-acquired pneumonia #Multiloculated cavitary lesion #Lactic acidosis, resolved #Leukocytosis, resolved On admission, MAP <65 & lactic acid peaked at 4.4, therefore patient was admitted to ICU for pressors. Patient received fluconazole, cefepime, doxycycline => continue cefepime, doxycycline (10/16?current) Currently on isolation precautions due to TB rule out, as imaging concerning for cavitary lesion. => QuantiFERON was negative; AFB sputum pending; Aspergillus pending Blood cultures have been negative >48 hours Leukocytosis resolved Continue cefepime, doxycycline (10/16?current) Follow-up pending/send out labs #Systolic ejection murmur #Mild mitral regurgitation As noted on physical exam and echo (EF 60 to 65%, aortic root and ascending aorta mildly dilated, mild mitral regurgitation) Patient denies any dizziness, syncope, chest pain or palpitations at this time Cardiology consulted, appreciate recommendations: Patient can follow-up outpatient #Transaminitis, improving LFTs have been downtrending since admission, likely secondary to shock Will continue to monitor #MATHIEU, resolved Patient came in with creatinine 2.2 and BUN 42 on admission Creatinine baseline is 1 => 10/20: 0.9 Avoid nephrotoxic agents; Renally dose medications; Will continue to monitor #Normocytic normochromic anemia Patient's baseline hemoglobin is around 15 from prior visits Hemoglobin 8.3 on admission and during the course of admission, has been fluctuating 9.3?11 No active signs of bleeding Type and screen & transfuse if hemoglobin <7 #Hx of recent head trauma #Acute thoracic and lumbar fractures Cervical spine showed acute fractures of T1 and T2; Abdomen/pelvis CT showed fracture of L2 and L1 Attempted transfer for neurosurgical evaluation however patient does not require any intervention at this time TLSO brace ordered Continue with pain control (acetaminophen?mild, gabapentin, [place]?moderate, lidocaine patch, morphine?severe) #Hx of CAD s/p CABG #Hyperlipidemia Continue patient's home Plavix and atorvastatin #Hx of hypertension Due to recent shock and borderline BP, holding antihypertensives Continue to monitor vital signs #Conjunctivitis Continue erythromycin drops #History of migraines Resumed Home Imitrex as needed #Depression versus bereavement #Difficulty sleeping Patient's passed last week, and patient endorses feeling sad Patient started on Remeron Disposition: Admitted for acute hypoxic respiratory failure secondary pneumonia; pending TB rule out Diet: Low sodium and dysphagia 2 GI prophylaxis: PPI DVT prophylaxis: SCDs Code: Full code Patient seen and care discussed with my attending Dr. Payne. Loyda aSnchez MD PGY-3 Attending Provider Attestation/Addendum I have discussed and was present for the essential components of the history, physical examination, diagnosis, and treatment plan with the resident. I agree with the patient's care as documented by the resident and amended herein by me. Eladio Payne, DO. Patient seen and evaluated this AM. Patient doing well clinically, vital signs stable, patient afebrile overnight. AFB x 1 negative, awaiting for the results. If all 3 come back negative, patient can be discharged home. Although this document has been carefully reviewed, there may still be some phonetic and other typographical errors. These errors are purely grammatical due to imperfections in the software program and should not be construed in any way to compromise the substance of the patient's medical care during this visit.
[2024-10-20] MEDS: MIRTAZAPINE 15 MG TABLET PO (08:47)
[2024-10-20] MEDS: SENNA TABLET 1 TAB PO (08:47)
[2024-10-20] MEDS: PANTOPRAZOLE INJ 40 MG VIAL IVP (08:47)
[2024-10-20] MEDS: CEFEPIME INJ 2 GM in SODIUM CHLORIDE 0.9% (P) 50 ML IV ×2 (08:47→20:26)
[2024-10-20] MEDS: GABAPENTIN 300 MG CAPSULE PO ×2 (08:48→20:27)
[2024-10-20] MEDS: CLOPIDOGREL BISULFATE 75 MG TABLET PO (08:48)
[2024-10-20] MEDS: DOXYCYCLINE 100 MG TABLET PO ×2 (08:48→20:27)
[2024-10-20] MEDS: Erythromycin Op Oint 0.5% 1 GM PACKET BOTH EYES (09:05)
--- NOTE | 2024-10-20 13:49 | PC.SS ---
Addendum entered by Ruthann Ayoub 10/20/24 15:39: SS received a call from PT indicating that patient was unable to ambulate and was having difficulty sitting up right. Patient refused SNF. SS will also contact daughter, January, who assists in decision making. PASRR completed and [facility] Original Note: Follow up note: Patient remains in isolation. Pending AFB results. TB r/o. D/c plan pending: HH vs SNF
[2024-10-20] MEDS: MONTELUKAST SODIUM 10 MG TABLET PO (20:27)
[2024-10-20] MEDS: ATORVASTATIN CALCIUM 20 MG TABLET 40 MG PO (20:27)
[2024-10-20] MEDS: LORazepam 0.5 MG TABLET 1 MG PO (21:42)
[2024-10-21] VITALS (10 sets, daily range): BP systolic 100–128; BP diastolic 70–88; PULSE 76–98; RESP 14–20; TEMP 36.1–36.6; O2SAT 93–96; BMI 22.2
[2024-10-21] MEDS: HYDROcodone/APAP 5/325 TABLET 1 TAB PO ×3 (01:05→16:26)
[2024-10-21] MEDS: MORPHINE SULF INJ 10 MG/ML VIAL 2 MG IVP ×3 (02:11→20:27)
[2024-10-21 06:24] LABS: Basophils # (Auto) 0.1 Thou/mm3 (0.0-0.2); Basophils % (Auto) 1 % (0-2.5); Eosinophils # (Auto) 0.7 Thou/mm3 (0.0-0.5); Eosinophils % (Auto) 7 % (0-10); Hemoglobin 9.8 g/dL (13.5-16.0); Immature Granulocytes % (Auto) 1 % (0-0); Lymphocytes % (Auto) 19 % (10-50); Mean Corpuscular HGB Conc 31.6 g/dl (31.0-37.0); Mean Corpuscular Hemoglobin 27.3 pg (25.0-35.0); Mean Corpuscular Volume 86 fL (80-100); Monocytes # (Auto) 0.9 Thou/mm3 (0.0-0.8); Monocytes % (Auto) 8 % (0-12); Neutrophils # (Auto) 6.6 Thou/mm3 (1.8-7.7); Neutrophils % (Auto) 64 % (37-80); Nucleated Red Blood Cell % 0 /100 WBC (0); Platelet Count 420 Thou/mm3 (140-440); Red Blood Count 3.59 Miln/mm3 (4.50-5.90); White Blood Count 10.4 Thou/mm3 (3.8-10.6)
[2024-10-21 06:54] LABS: Alanine Aminotransferase 48 U/L (10-49); Albumin/Globulin Ratio 1.7 (1.2-2.2); Alkaline Phosphatase 121 U/L (46-116); Anion Gap 6 (7-16); Aspartate Amino Transferase 32 U/L (0-34); BUN/Creatinine Ratio 24 Ratio (12-20); Bilirubin,Total 0.8 mg/dL (0.3-1.2); Blood Urea Nitrogen 22 mg/dL (9-23); Calcium 8.8 mg/dL (8.3-10.6); Calcium (Corrected) 8.8 mg/dL (8.5-10.1); Carbon Dioxide 24.2 mMol/L (20.0-31.0); Chloride 100 mMol/L (98-107); Creatinine (Component) 0.9 mg/dL (0.6-1.3); Estimated Creatinine Clearance 71.8 mL/min (>60); Globulin 2.3 gm/dL (2.3-3.5); Glucose 84 mg/dL (74-106); Osmolality,Calculated 263 (275-295); Sodium 130 mMol/L (136-145); Total Protein 6.3 gm/dL (5.7-8.2); eGFR > 60 See Note
[2024-10-21] MEDS: CLOPIDOGREL BISULFATE 75 MG TABLET PO (08:00)
[2024-10-21] MEDS: PANTOPRAZOLE INJ 40 MG VIAL IVP (08:00)
[2024-10-21] MEDS: SENNA TABLET 1 TAB PO (08:00)
[2024-10-21] MEDS: MIRTAZAPINE 15 MG TABLET PO (08:00)
[2024-10-21] MEDS: CEFEPIME INJ 2 GM in SODIUM CHLORIDE 0.9% (P) 50 ML IV ×2 (08:00→20:15)
[2024-10-21] MEDS: GABAPENTIN 300 MG CAPSULE PO ×2 (08:00→20:15)
[2024-10-21] MEDS: Erythromycin Op Oint 0.5% 1 GM PACKET BOTH EYES (08:00)
[2024-10-21] MEDS: DOXYCYCLINE 100 MG TABLET PO ×2 (08:00→20:15)
--- NOTE | 2024-10-21 12:11 | PD.RESPRO ---
Documentation for date of: 10/21/24 Subjective Subjective Interval history: Patient seen and examined at bedside this morning. Vitals, labs reviewed. He is on 1 L nasal cannula, sats 94-97%, MAP >66. Leukocytosis resolved. QuantiFERON was negative. AFB x3 results pending to rule out TB, will talk to ID nurse re: county to clear for DC Will continue with cefepime + Doxy for HCAP (10/17 - 10/23) Patient tolerating diet, adequate urine output and mentation is at baseline. Exam Vital Signs Temp Pulse Resp BP Pulse Ox O2 Del Method O2 Flow Rate 97.9 F 82 19 114/72 95 Nasal Cannula 1 10/21/24 12:00 10/21/24 12:00 10/21/24 12:00 10/21/24 12:10/21/24 12:10/21/24 12:10/21/24 12:00 Narrative Exam Constitutional Alert, oriented x4 and comfortable. On 2L via NC HEENT Vision grossly intact. Periorbital ecchymosis- improving. Patent nares. Trachea midline. Respiratory Chest normal on inspection and clear to auscultation bilaterally. Cardiovascular S1 and S2 audible, RRR. No murmurs or carotid bruit. No gross JVD. Abdominal Soft and non tender to palpation in all quadrants. BS + Genitourinary No bladder tenderness, no flank pain. Normal to palpation. Musculoskeletal Extremities tone within normal limits. No LE edema. Neurological CN II - XII grossly intact. Extremity motor and sensation grossly intact. Skin Warm, dry and intact. Senile purpura. Scalp stitches intact, no discharge. Psychiatric Patient has a good affect, is cooperative. Objective Labs 10/21/24 06:05 10/21/24 06:05 Labs: Laboratory Results - last 24 hr 10/21/24 06:05 WBC 10.4 RBC 3.59 L Hgb 9.8 L Hct 31.0 L MCV 86 MCH 27.3 MCHC 31.6 RDW Std Deviation 45.0 H Plt Count 420 Neut % (Auto) 64 Lymph % (Auto) 19 [place] % (Auto) 8 Eos % (Auto) 7 Baso % (Auto) 1 Neut # (Auto) 6.6 Lymph # (Auto) 2.0 [place] # (Auto) 0.9 H Eos # (Auto) 0.7 H Baso # (Auto) 0.1 Immature Gran # (Auto) 0.10 H Absolute Nucleated RBC 0.00 Immature Gran % 1 H Nucleated RBC % 0 Sodium 130 L Potassium 4.0 Chloride 100 Carbon Dioxide 24.2 Anion Gap 6 L BUN 22 Creatinine 0.9 Estim Creat Clear Calc 71.8 eGFR > 60 BUN/Creatinine Ratio 24 H Glucose 84 Calculated Osmolality 263 L Calcium 8.8 Corrected Calcium 8.8 Total Bilirubin 0.8 AST 32 ALT 48 Alkaline Phosphatase 121 H D Total Protein 6.3 Albumin 4.0 Globulin 2.3 Albumin/Globulin Ratio 1.7 ABG Interpretation ABG results: 10/15/24 19:01 ABG pH 7.39 ABG pCO2 37 ABG pO2 106 ABG HCO3 23 ABG O2 Saturation 99 H ABG Base Excess -2 Quality Measures Quality Measures VTE prophylaxis Advance care planning discussed with:: patient Assessment & Plan Assessment Current Active Medications: Generic Name Dose Route Start Last Admin Trade Name Freq PRN Reason Stop Dose Admin Acetaminophen 650 mg 10/15/24 23:02 Acetaminophen 325 Mg Tablet PO 11/14/24 23:01 Q4HR PRN PAIN SCALE 1-3 (mild Hydrocodone Bitart/Acetaminophen 1 tab 10/19/24 09:25 10/21/24 05:54 Hydrocodone/Apap 5/325 Tablet PO 10/24/24 09:24 1 tab Q4HR PRN Administration PAIN SCALE 4-6 (Moderate Atorvastatin Calcium 40 mg 10/17/24 21:00 10/20/24 20:27 Atorvastatin Calcium 20 Mg Tablet PO 11/16/24 20:59 40 mg QPM SENG Administration Buspirone HCl 5 mg 10/21/24 07:56 Buspirone Hcl 5 Mg Tablet PO 11/20/24 08:59 BID PRN ANXIETY Clopidogrel Bisulfate 75 mg 10/17/24 13:15 10/21/24 08:00 Clopidogrel Bisulfate 75 Mg Tablet PO 11/16/24 13:14 75 mg DAILY SENG Administration Doxycycline Hyclate 100 mg 10/17/24 09:15 10/21/24 08:00 Doxycycline 100 Mg Tablet PO 10/24/24 09:14 100 mg BID SENG Administration Erythromycin 1 gm 10/17/24 13:45 10/21/24 08:00 Erythromycin Op Oint 0.5% 1 Gm Packet BOTH EYES 11/16/24 13:44 1 gm QDAY SENG Administration Gabapentin 300 mg 10/16/24 09:00 10/21/24 08:00 Gabapentin 300 Mg Capsule PO 11/15/24 08:59 300 mg BID SENG Administration Cefepime HCl 2 gm/ Sodium 50 mls @ 100 mls/hr 10/17/24 09:16 10/21/24 08:00 Chloride IV 10/24/24 09:15 100 mls/hr Q12HR SENG Administration Lidocaine 1 patch 10/18/24 10:14 10/18/24 21:32 Lidocaine 5% 1 Patch TOP 11/17/24 10:13 1 patch UD PRN Administration PAIN Mirtazapine 15 mg 10/17/24 09:00 10/21/24 08:00 Mirtazapine 15 Mg Tablet PO 11/16/24 08:59 15 mg QDAY SENG Administration Montelukast Sodium 10 mg 10/16/24 21:00 10/20/24 20:27 Montelukast Sodium 10 Mg Tablet PO 11/15/24 20:59 10 mg QPM SENG Administration Morphine Sulfate 2 mg 10/19/24 09:25 10/21/24 11:47 Morphine Sulf Inj 10 Mg/Ml Vial IVP 10/24/24 09:24 2 mg Q4HR PRN Administration PAIN SCALE 7-10 (Severe Pantoprazole Sodium 40 mg 10/16/24 09:00 10/21/24 08:00 Pantoprazole Inj 40 Mg Vial IVP 11/15/24 08:59 40 mg QDAY SENG Administration (Fluticasone Furoate 1 ea 10/16/24 09:00 10/21/24 09:39 [Arnuity Ellipta] INH 11/15/24 08:59 Not Given 200 Mcg/Actuation) QDAY SENG Protocol Sennosides 1 tab 10/20/24 09:00 10/21/24 08:00 Senna Tablet PO 11/19/24 08:59 1 tab QDAY SENG Administration Protocol Sumatriptan Succinate 100 mg 10/17/24 07:30 10/17/24 08:51 Sumatriptan 25 Mg Tablet PO 11/16/24 07:29 100 mg Q2H PRN Administration migraine (max 2 doses in 24hr) Plan Mr Espinoza is a 69-year-old male with history of CAD s/p CABG, HTN, HLD, asthma, BPH who was admitted to the ICU for septic shock, likely secondary to hospital-acquired pneumonia. Imaging was concerning for cavitary lesion, therefore testing for TB rule out was ordered. Additionally, patient had a recent traumatic head injury with thoracic and lumbar spine fractures for which she was seen at [facility]. No neurosurgical intervention is needed. 1. Acute hypoxic respiratory failure 2. Septic shock - resolved 3. Hospital-acquired pneumonia 4. Multi-loculated cavitary lesion On admission, MAP <65 & lactic acid peaked at 4.4, therefore patient was admitted to ICU for pressors. Currently on isolation precautions due to TB rule out, as imaging concerning for cavitary lesion. => QuantiFERON was negative; AFB sputum pending; Aspergillus pending Blood cultures : negative >48 hours Leukocytosis : resolved 10/21 : Patient doing well clinically, vital signs stable, patient afebrile overnight. Plan: - Continue cefepime, doxycycline (10/16?current) - AFB x 1 negative. Follow up other 2 AFB results, if negative, patient can be discharged home. - Will consult ID nurse re: expediting DC 5. Systolic ejection murmur 6. Mild mitral regurgitation As noted on physical exam and echo (EF 60 to 65%, aortic root and ascending aorta mildly dilated, mild mitral regurgitation) Patient denies any dizziness, syncope, chest pain or palpitations at this time Plan: - Cardiology consulted, appreciate recommendations - Patient can follow-up outpatient, no acute intervention needed 7. Transaminitis - improving 8. MATHIEU - resolved LFTs have been downtrending since admission, likely secondary to shock Plan: - Will continue to monitor - p.o. intake encouraged. Ensure max protein added for supplementation - Avoid nephrotoxic agents - Renally dose medications 9. Normocytic normochromic anemia Patient's baseline hemoglobin is around 15 from prior visits Hemoglobin 8.3 on admission and during the course of admission, has been fluctuating 9.3?11 Plan: - No active signs of bleeding - Type and screen & transfuse if hemoglobin <7 - Daily B12/FA supplementation 10. Hx of recent head trauma 11. Acute thoracic and lumbar fractures Cervical spine showed acute fractures of T1 and T2; Abdomen/pelvis CT showed fracture of L2 and L1 Plan: - Attempted transfer for neurosurgical evaluation however patient does not require any intervention at this time - TLSO brace ordered - Continue with pain control (acetaminophen?mild, gabapentin, [place]?moderate, lidocaine patch, morphine?severe) 12. CAD s/p CABG 13. Hyperlipidemia Continue patient's home Plavix and atorvastatin 14. Essential hypertension Due to recent shock and borderline BP, holding antihypertensives Continue to monitor vital signs 15. Conjunctivitis Continue erythromycin drops 16. History of migraines Resumed Home Imitrex as needed 17. Depression versus bereavement 18. Insomnia/ anxiety Patient's passed last week, and patient endorses feeling sad Plan: - Patient started on Remeron - Started buspar 5mg BID PRN. HOLD home Xanax 2mg Health maintenance: Disposition: Admitted for [facility] - TB rule out, AFB x2 pending Diet: Low sodium and dysphagia 2 GI prophylaxis: PPI DVT prophylaxis: SCDs Code: Full code Plan of care discussed with attending Ravi Turcios M.D. PGY2 Attending Provider Attestation/Addendum I have discussed and was present for the essential components of the history, physical examination, diagnosis, and treatment plan with the resident. I agree with the patient's care as documented by the resident and amended herein by me. Eladio Payne DO. Although this document has been carefully reviewed, there may still be some phonetic and other typographical errors. These errors are purely grammatical due to imperfections in the software program and should not be construed in any way to compromise the substance of the patient's medical care during this visit.
[2024-10-21] MEDS: carVEDILOL 3.125 MG TABLET PO (16:25)
[2024-10-21] MEDS: ATORVASTATIN CALCIUM 20 MG TABLET 40 MG PO (20:14)
[2024-10-21] MEDS: BusPIRone HCL 5 MG TABLET PO (20:14)
[2024-10-21] MEDS: tiZANidine HCL 2 MG TABLET 4 MG PO (20:15)
[2024-10-21 22:06] LABS: Index Value <0.50
[2024-10-22] VITALS (10 sets, daily range): BP systolic 107–144; BP diastolic 65–97; PULSE 69–87; RESP 16–20; TEMP 36.1–36.3; O2SAT 93–97; BMI 21.9
[2024-10-22] MEDS: MORPHINE SULF INJ 10 MG/ML VIAL 2 MG IVP ×3 (00:43→17:46)
[2024-10-22] MEDS: HYDROcodone/APAP 5/325 TABLET 1 TAB PO ×4 (02:54→20:38)
[2024-10-22 05:30] LABS: Basophils # (Auto) 0.2 Thou/mm3 (0.0-0.2); Basophils % (Auto) 2 % (0-2.5); Eosinophils # (Auto) 0.7 Thou/mm3 (0.0-0.5); Eosinophils % (Auto) 6 % (0-10); Hematocrit 30.3 % (41.0-53.0); Hemoglobin 9.8 g/dL (13.5-16.0); Immature Granulocytes % (Auto) 1 % (0-0); Immature Granulocytes Auto 0.11 Thou/mm3 (0.00-0.00); Lymphocytes # (Auto) 1.9 Thou/mm3 (1.0-4.8); Lymphocytes % (Auto) 17 % (10-50); Mean Corpuscular HGB Conc 32.3 g/dl (31.0-37.0); Mean Corpuscular Hemoglobin 27.8 pg (25.0-35.0); Mean Corpuscular Volume 86 fL (80-100); Monocytes # (Auto) 0.8 Thou/mm3 (0.0-0.8); Monocytes % (Auto) 8 % (0-12); Neutrophils # (Auto) 7.1 Thou/mm3 (1.8-7.7); Neutrophils % (Auto) 66 % (37-80); Nucleated Red Blood Cell % 0 /100 WBC (0); Platelet Count 412 Thou/mm3 (140-440); RDW Standard Deviation 44.5 fL (35.1-43.9); Red Blood Count 3.53 Miln/mm3 (4.50-5.90); White Blood Count 10.8 Thou/mm3 (3.8-10.6)
[2024-10-22 05:56] LABS: Alanine Aminotransferase 42 U/L (10-49); Albumin, Serum 3.9 gm/dL (3.4-4.8); Albumin/Globulin Ratio 1.7 (1.2-2.2); Alkaline Phosphatase 135 U/L (46-116); Anion Gap 9 (7-16); Aspartate Amino Transferase 26 U/L (0-34); BUN/Creatinine Ratio 29 Ratio (12-20); Bilirubin,Total 0.9 mg/dL (0.3-1.2); Blood Urea Nitrogen 20 mg/dL (9-23); Calcium 8.7 mg/dL (8.3-10.6); Calcium (Corrected) 8.8 mg/dL (8.5-10.1); Carbon Dioxide 22.1 mMol/L (20.0-31.0); Chloride 100 mMol/L (98-107); Creatinine (Component) 0.7 mg/dL (0.6-1.3); Estimated Creatinine Clearance 92.4 mL/min (>60); Globulin 2.3 gm/dL (2.3-3.5); Glucose 84 mg/dL (74-106); Osmolality,Calculated 264 (275-295); Potassium 3.8 mMol/L (3.4-5.1); Sodium 131 mMol/L (136-145); Total Protein 6.2 gm/dL (5.7-8.2); eGFR > 60 See Note
[2024-10-22] MEDS: PANTOPRAZOLE INJ 40 MG VIAL IVP (08:19)
[2024-10-22] MEDS: tiZANidine HCL 2 MG TABLET 4 MG PO ×2 (08:20→20:38)
[2024-10-22] MEDS: CLOPIDOGREL BISULFATE 75 MG TABLET PO (08:20)
[2024-10-22] MEDS: GABAPENTIN 300 MG CAPSULE PO ×2 (08:20→20:38)
[2024-10-22] MEDS: carVEDILOL 3.125 MG TABLET PO ×2 (08:21→17:33)
[2024-10-22] MEDS: SENNA TABLET 1 TAB PO (08:21)
[2024-10-22] MEDS: MIRTAZAPINE 15 MG TABLET PO (08:22)
[2024-10-22] MEDS: DOXYCYCLINE 100 MG TABLET PO (08:22)
[2024-10-22] MEDS: BusPIRone HCL 5 MG TABLET PO ×2 (08:22→20:38)
[2024-10-22] MEDS: CEFEPIME INJ 2 GM in SODIUM CHLORIDE 0.9% (P) 50 ML IV (08:34)
--- NOTE | 2024-10-22 09:08 | PC.SS ---
SS attempted to make contact with pt dtr, January to discuss DC plan. No answer, VM left.
--- NOTE | 2024-10-22 12:23 | ESPR_ITS ---
Documentation for date of: 10/22/24 Subjective Subjective Interval history: Patient seen and examined at bedside this morning. Vitals, labs reviewed, stable. Patient endorses not having a bowel movement but is passing gas. Will try magnesium citrate, and if no success, will add Movantik as patient likely has opioid-induced constipation. Will follow-up with [facility] on Wednesday morning in regards to patient's AFB sputum samples. Exam Vital Signs Temp Pulse Resp BP Pulse Ox O2 Del Method O2 Flow Rate 97.1 F 80 16 116/78 94 L Room Air 1 10/22/24 08:00 10/22/24 08:21 10/22/24 08:00 10/22/24 08:21 10/22/24 08:00 10/22/24 08:00 10/22/24 04:00 Narrative Exam Gen: AAOx3, frail elderly male, HEENT: PERRLA, EOMI, MMM, significant periorbital bruising improving and laceration with stitches on head noted CVS: Holosystolic murmur appreciated at apex Resp: Mild wheeze bilaterally, with decreased breath sounds on right Abd: soft, non-tender, non-distended. BS+ in all 4 quadrants : Ball in place; urine without hematuria/clots/sediment MSK: Good ROM in BUE & BLE. No edema or rash. Neuro: CN II-XII grossly intact. Strength 5/5 in BUE & BLE. Objective Labs 10/22/24 05:13 10/22/24 05:13 Labs: Laboratory Results - last 24 hr 10/22/24 05:13 WBC 10.8 H RBC 3.53 L Hgb 9.8 L Hct 30.3 L MCV 86 MCH 27.8 MCHC 32.3 RDW Std Deviation 44.5 H Plt Count 412 Neut % (Auto) 66 Lymph % (Auto) 17 [place] % (Auto) 8 Eos % (Auto) 6 Baso % (Auto) 2 Neut # (Auto) 7.1 Lymph # (Auto) 1.9 [place] # (Auto) 0.8 Eos # (Auto) 0.7 H Baso # (Auto) 0.2 Immature Gran # (Auto) 0.11 H Absolute Nucleated RBC 0.00 Immature Gran % 1 H Nucleated RBC % 0 Sodium 131 L Potassium 3.8 Chloride 100 Carbon Dioxide 22.1 Anion Gap 9 BUN 20 Creatinine 0.7 Estim Creat Clear Calc 92.4 eGFR > 60 BUN/Creatinine Ratio 29 H Glucose 84 Calculated Osmolality 264 L Calcium 8.7 Corrected Calcium 8.8 Total Bilirubin 0.9 AST 26 ALT 42 Alkaline Phosphatase 135 H Total Protein 6.2 Albumin 3.9 Globulin 2.3 Albumin/Globulin Ratio 1.7 ABG Interpretation ABG results: 10/15/24 19:01 ABG pH 7.39 ABG pCO2 37 ABG pO2 106 ABG HCO3 23 ABG O2 Saturation 99 H ABG Base Excess -2 Quality Measures Quality Measures VTE prophylaxis Advance care planning discussed with:: patient Assessment & Plan Assessment Current Active Medications: Generic Name Dose Route Start Last Admin Trade Name Freq PRN Reason Stop Dose Admin Acetaminophen 650 mg 10/15/24 23:02 Acetaminophen 325 Mg Tablet PO 11/14/24 23:01 Q4HR PRN PAIN SCALE 1-3 (mild Hydrocodone Bitart/Acetaminophen 1 tab 10/19/24 09:25 10/22/24 09:16 Hydrocodone/Apap 5/325 Tablet PO 10/24/24 09:24 1 tab Q4HR PRN Administration PAIN SCALE 4-6 (Moderate Atorvastatin Calcium 40 mg 10/17/24 21:00 10/21/24 20:14 Atorvastatin Calcium 20 Mg Tablet PO 11/16/24 20:59 40 mg QPM SENG Administration Buspirone HCl 5 mg 10/21/24 21:00 10/22/24 08:22 Buspirone Hcl 5 Mg Tablet PO 11/20/24 20:59 5 mg BID SENG Administration Carvedilol 3.125 mg 10/21/24 15:45 10/22/24 08:21 Carvedilol 3.125 Mg Tablet PO 11/20/24 15:44 3.125 mg BIDWM SENG Administration Clopidogrel Bisulfate 75 mg 10/17/24 13:15 10/22/24 08:20 Clopidogrel Bisulfate 75 Mg Tablet PO 11/16/24 13:14 75 mg DAILY SENG Administration Doxycycline Hyclate 100 mg 10/17/24 09:15 10/22/24 08:22 Doxycycline 100 Mg Tablet PO 10/24/24 09:14 100 mg BID SENG Administration Erythromycin 1 gm 10/17/24 13:45 10/22/24 08:20 Erythromycin Op Oint 0.5% 1 Gm Packet BOTH EYES 11/16/24 13:44 1 gm QDAY SENG Administration Gabapentin 300 mg 10/16/24 09:00 10/22/24 08:20 Gabapentin 300 Mg Capsule PO 11/15/24 08:59 300 mg BID SENG Administration Cefepime HCl 2 gm/ Sodium 50 mls @ 100 mls/hr 10/17/24 09:16 10/22/24 08:34 Chloride IV 10/24/24 09:15 100 mls/hr Q12HR SENG Administration Lidocaine 1 patch 10/18/24 10:14 10/18/24 21:32 Lidocaine 5% 1 Patch TOP 11/17/24 10:13 1 patch UD PRN Administration PAIN Magnesium Citrate 300 ml 10/22/24 12:21 Magnesium Citrate 300 Ml Btl PO 10/22/24 12:22 X1 ONE Mirtazapine 15 mg 10/17/24 09:00 10/22/24 08:22 Mirtazapine 15 Mg Tablet PO 11/16/24 08:59 15 mg QDAY SENG Administration Montelukast Sodium 10 mg 10/16/24 21:00 10/20/24 20:27 Montelukast Sodium 10 Mg Tablet PO 11/15/24 20:59 10 mg QPM SENG Administration Morphine Sulfate 2 mg 10/19/24 09:25 10/22/24 05:20 Morphine Sulf Inj 10 Mg/Ml Vial IVP 10/24/24 09:24 2 mg Q4HR PRN Administration PAIN SCALE 7-10 (Severe Pantoprazole Sodium 40 mg 10/16/24 09:00 10/22/24 08:19 Pantoprazole Inj 40 Mg Vial IVP 11/15/24 08:59 40 mg QDAY SENG Administration (Fluticasone Furoate 1 ea 10/16/24 09:00 10/22/24 08:22 [Arnuity Ellipta] INH 11/15/24 08:59 Not Given 200 Mcg/Actuation) QDAY SENG Protocol Sennosides 1 tab 10/20/24 09:00 10/22/24 08:21 Senna Tablet PO 11/19/24 08:59 1 tab QDAY SENG Administration Protocol Sumatriptan Succinate 100 mg 10/17/24 07:30 10/17/24 08:51 Sumatriptan 25 Mg Tablet PO 11/16/24 07:29 100 mg Q2H PRN Administration migraine (max 2 doses in 24hr) Tizanidine HCl 4 mg 10/21/24 21:00 10/22/24 08:20 Tizanidine Hcl 2 Mg Tablet PO 11/20/24 20:59 4 mg BID SENG Administration Plan Patient is a 69-year-old male with history of CAD s/p CABG, HTN, HLD, asthma, BPH who was admitted to the ICU for septic shock, likely secondary to hospital- acquired pneumonia. Imaging was concerning for cavitary lesion, therefore testing for TB rule out was ordered. Additionally, patient had a recent traumatic head injury with thoracic and lumbar spine fractures for which she was seen at [facility]. No neurosurgical intervention is needed. #Constipation Patient has not had a bowel movement in >3 days. May have component of opioid- induced constipation. Will start with magnesium citrate, and if no success, will add Movantik #Septic shock, resolved #Acute hypoxic respiratory failure secondary to #Hospital-acquired pneumonia #Multiloculated cavitary lesion #Lactic acidosis, resolved #Leukocytosis, resolved On admission, MAP <65 & lactic acid peaked at 4.4, therefore patient was admitted to ICU for pressors. Patient received fluconazole, cefepime, doxycycline => continue cefepime, doxycycline (10/16?current) Currently on isolation precautions due to TB rule out, as imaging concerning for cavitary lesion. => QuantiFERON was negative; AFB sputum pending; Aspergillus pending Blood cultures have been negative >48 hours Leukocytosis resolved Continue cefepime, doxycycline (10/16?current) Follow-up pending/send out labs Will follow-up with [facility] in regards to AFBs #Systolic ejection murmur #Mild mitral regurgitation As noted on physical exam and echo (EF 60 to 65%, aortic root and ascending aorta mildly dilated, mild mitral regurgitation) Patient denies any dizziness, syncope, chest pain or palpitations at this time Cardiology consulted, appreciate recommendations: Patient can follow-up outpatient #Transaminitis, improving LFTs have been downtrending since admission, likely secondary to shock Will continue to monitor #MATHIEU, resolved Patient came in with creatinine 2.2 and BUN 42 on admission Creatinine baseline is 1 => 10/20: 0.9 Avoid nephrotoxic agents; Renally dose medications; Will continue to monitor #Normocytic normochromic anemia Patient's baseline hemoglobin is around 15 from prior visits Hemoglobin 8.3 on admission and during the course of admission, has been fluctuating 9?11 No active signs of bleeding Type and screen & transfuse if hemoglobin <7 #Hx of recent head trauma #Acute thoracic and lumbar fractures Cervical spine showed acute fractures of T1 and T2; Abdomen/pelvis CT showed fracture of L2 and L1 Attempted transfer for neurosurgical evaluation however patient does not require any intervention at this time TLSO brace ordered Continue with pain control (acetaminophen?mild, gabapentin, [place]?moderate, lidocaine patch, morphine?severe); added tizanidine #Hx of CAD s/p CABG #Hyperlipidemi Continue patient's home Plavix and atorvastatin #Hx of hypertension Resumed home Coreg #Conjunctivitis Continue erythromycin drops #History of migraines Resumed Home Imitrex as needed #Depression versus bereavement #Difficulty sleeping Patient's passed last week, and patient endorses feeling sad Patient started on Remeron Disposition: Admitted for acute hypoxic respiratory failure secondary pneumonia; pending TB rule out Diet: Low sodium and dysphagia 2 GI prophylaxis: PPI DVT prophylaxis: SCDs Code: Full code Patient seen and care discussed with my attending Dr. Payne. Loyda Sanchez MD PGY-3 Attending Provider Attestation/Addendum I have discussed and was present for the essential components of the history, physical examination, diagnosis, and treatment plan with the resident. I agree with the patient's care as documented by the resident and amended herein by me. Eladio Payne, DO. Patient seen and evaluated this AM. No acute events overnight, vital signs stable, patient afebrile. Quant Far[place] gold negative, AFBs pending, will reach out to infection control and over the [facility] tomorrow for results which may have been delayed over the holiday. Will continue to monitor closely while he is here but the patient is doing very well. Will DC antibiotics today as the patient has completed an adequate course for any superimposed bacterial pneumonia. Although this document has been carefully reviewed, there may still be some phonetic and other typographical errors. These errors are purely grammatical due to imperfections in the software program and should not be construed in any way to compromise the substance of the patient's medical care during this visit.
--- NOTE | 2024-10-22 12:40 | PC.SS ---
Rounding: Pending AFBs
[2024-10-22] MEDS: MAGNESIUM CITRATE 300 ML BTL PO (14:40)
[2024-10-22] MEDS: NALOXEGOL OXALATE 25 MG TABLET (NON-FORMULARY) PO (17:36)
[2024-10-22] MEDS: ATORVASTATIN CALCIUM 20 MG TABLET 40 MG PO (20:38)
[2024-10-23] VITALS (11 sets, daily range): BP systolic 98–135; BP diastolic 64–91; PULSE 68–80; RESP 16–21; TEMP 36–36.6; O2SAT 93–98; BMI 21.9
[2024-10-23] MEDS: HYDROcodone/APAP 5/325 TABLET 1 TAB PO ×4 (00:46→20:50)
[2024-10-23] MEDS: ALPRazoLAM 0.25 MG TABLET 2 MG PO ×3 (01:22→20:50)
[2024-10-23 06:26] LABS: Aspergillus Ag, Ser* NOT DETECTED
[2024-10-23] MEDS: MORPHINE SULF INJ 10 MG/ML VIAL 2 MG IVP (07:29)
[2024-10-23 08:05] LABS: Basophils # (Auto) 0.2 Thou/mm3 (0.0-0.2); Basophils % (Auto) 2 % (0-2.5); Eosinophils # (Auto) 0.6 Thou/mm3 (0.0-0.5); Eosinophils % (Auto) 5 % (0-10); Hematocrit 31.8 % (41.0-53.0); Hemoglobin 10.2 g/dL (13.5-16.0); Immature Granulocytes % (Auto) 1 % (0-0); Immature Granulocytes Auto 0.09 Thou/mm3 (0.00-0.00); Lymphocytes # (Auto) 1.7 Thou/mm3 (1.0-4.8); Lymphocytes % (Auto) 16 % (10-50); Mean Corpuscular HGB Conc 32.1 g/dl (31.0-37.0); Mean Corpuscular Hemoglobin 27.5 pg (25.0-35.0); Mean Corpuscular Volume 86 fL (80-100); Monocytes % (Auto) 10 % (0-12); Neutrophils # (Auto) 6.8 Thou/mm3 (1.8-7.7); Neutrophils % (Auto) 66 % (37-80); Nucleated Red Blood Cell % 0 /100 WBC (0); Platelet Count 441 Thou/mm3 (140-440); RDW Standard Deviation 44.6 fL (35.1-43.9); Red Blood Count 3.71 Miln/mm3 (4.50-5.90); White Blood Count 10.3 Thou/mm3 (3.8-10.6)
[2024-10-23 08:29] LABS: Alanine Aminotransferase 42 U/L (10-49); Albumin/Globulin Ratio 1.6 (1.2-2.2); Alkaline Phosphatase 164 U/L (46-116); Anion Gap 10 (7-16); Aspartate Amino Transferase 19 U/L (0-34); BUN/Creatinine Ratio 26 Ratio (12-20); Bilirubin,Total 0.8 mg/dL (0.3-1.2); Blood Urea Nitrogen 18 mg/dL (9-23); Calcium 8.8 mg/dL (8.3-10.6); Calcium (Corrected) 8.8 mg/dL (8.5-10.1); Carbon Dioxide 21.6 mMol/L (20.0-31.0); Chloride 103 mMol/L (98-107); Creatinine (Component) 0.7 mg/dL (0.6-1.3); Estimated Creatinine Clearance 91.3 mL/min (>60); Globulin 2.5 gm/dL (2.3-3.5); Glucose 78 mg/dL (74-106); Osmolality,Calculated 271 (275-295); Sodium 135 mMol/L (136-145); Total Protein 6.5 gm/dL (5.7-8.2); eGFR > 60 See Note
--- NOTE | 2024-10-23 08:52 | PC.SS ---
Addendum entered by Ruthann Ayoub 10/23/24 10:48: Follow up note: SS met with patient at bedside. He's off precautions. He declines SNF placement. He did not have a good experience in the past. Patient is insistent on going home with HH services. Patient's the week he was admitted to hospital. Family making arrangements. Patient has seen a p.c.p.: Dr. Langston within the last 30 days. He sees his physician monthly. Patient confirmed he already has a FWW and a wheelchair. His family will assist in transportation. SS confirmed with daughter, January. She will have patient stay with her at her home. D/c address: [address] [place] [address] Original Note: Follow up note: SS spoke to patient's daughter re: discharge plans. Patient worked with PT once and daughter wants him to work again with PT to determine if he needs SNF or HH. Patient's recently and he will then d/c home alone. Daughter is working on having patient eventually move in with her. SS updated PT as well. Possible d/c today or tomorrow. Physician states AFB results are back and negative.
[2024-10-23] MEDS: PANTOPRAZOLE INJ 40 MG VIAL IVP (09:13)
[2024-10-23] MEDS: Erythromycin Op Oint 0.5% 1 GM PACKET BOTH EYES (09:13)
[2024-10-23] MEDS: SENNA TABLET 1 TAB PO (09:14)
[2024-10-23] MEDS: GABAPENTIN 300 MG CAPSULE PO ×2 (09:14→20:37)
[2024-10-23] MEDS: NALOXEGOL OXALATE 25 MG TABLET (NON-FORMULARY) PO (09:14)
[2024-10-23] MEDS: carVEDILOL 3.125 MG TABLET PO ×2 (09:14→17:20)
[2024-10-23] MEDS: CLOPIDOGREL BISULFATE 75 MG TABLET PO (09:14)
[2024-10-23] MEDS: BusPIRone HCL 5 MG TABLET PO ×2 (09:14→20:51)
[2024-10-23] MEDS: tiZANidine HCL 2 MG TABLET 4 MG PO ×2 (09:36→20:36)
[2024-10-23] MEDS: MIRTAZAPINE 15 MG TABLET PO (10:03)
--- NOTE | 2024-10-23 12:32 | PD.RESDS ---
Planned Discharge Date 10/23/24 DS: Providers Provider Date of admission: 10/15/24 23:02 Primary care physician: Vaibhav Langston MD Admitting Provider: Frankie Myrick MD Attending Provider on Admission: William Payne DO Consults: 10/17/24 07:00 Referral Nutritional Services Routine Comment: laceration top of head. Referral Wound Care Routine Comment: Laceration top of head 10/17/24 09:23 Referral Physical Therapy Routine Comment: Physician Instructions: Referral Registered Dietitian Routine Comment: 10/19/24 07:30 Consult to Cardiology Routine Comment: Murmur, visible thrill Consulting Provider: Timmy Leo Attending Provider on DC: Loyda Sanchez MD Discharging Provider: Loyda Sanchez MD DS: Diagnosis Problem List Completed Was Problem List Reviewed/Reconciled?: Yes Hospital Course Hospital Course Hospital course: Patient was a 69-year-old male with history of CAD s/p CABG, HTN, HLD, asthma, BPH who was admitted to the ICU for septic shock, likely secondary to acute hypoxic respiratory failure secondary to hospital-acquired pneumonia. On presentation, patient's MAP was <65, LA peaked at 4.4, and patient required IV pressors. Chest imaging was concerning for a cavitary lesion, therefore testing for TB rule out was ordered. Patient was started on IV antibiotics at this time. Patient was recently admitted at [facility] after a traumatic head injury with thoracic and lumbar spine fractures. No neurosurgical intervention was needed. His pain was managed with morphine and [place]. TLSO brace was ordered. For constipation likely related to opioids, patient was started on bowel regimen including Movantik. Home meds for chronic conditions were resumed, with the exception of benazepril as BP was within normal limits while on Coreg only. AFB sputum's were sent x 3, with all 3 returning negative. QuantiFERON was negative. Additional problems that were treated/resolved/monitored included transaminitis, MATHIEU, conjunctivitis. Of note, systolic ejection murmur was appreciated and echo ordered to evaluate. Patient was noted to have mild mitral regurgitation, for which cardiology recommended follow-up outpatient. Patient was evaluated by physical therapy and SNF was strongly recommended, however patient adamantly refused, as his daughter would be primary caregiver. He will be discharged with home health with PT. Return precautions were provided. #Septic shock, resolved #Acute hypoxic respiratory failure, resolved, secondary to #Hospital-acquired pneumonia #Multiloculated cavitary lesion #TB ruled out #Lactic acidosis, resolved #Leukocytosis, resolved #Systolic ejection murmur #Mild mitral regurgitation #Transaminitis, improved #MATHIEU, resolved #Normocytic normochromic anemia #History of recent head trauma #Acute thoracic and lumbar fractures #Opioid-induced constipation #History of CAD s/p CABG #HLD #Hypertension #Conjunctivitis, improved #History of migraines #Depression versus bereavement #Difficulty sleeping Patient seen and care discussed with my attending Dr. Payne. Loyda Sanchez MD PGY-3 Status at Discharge Cognitive/behavioral status at discharge: AAOx3 Time Spent with Patient Time attestation: Total time spent providing and/or coordinating discharge services: Time spent: Greater than 30 minutes Exam Vital Signs Temp Pulse Resp BP Pulse Ox O2 Del Method O2 Flow Rate 96.8 F 80 16 122/87 H 95 Room Air 1 10/23/24 07:41 10/23/24 12:00 10/23/24 07:41 10/23/24 09:14 10/23/24 07:41 10/23/24 07:41 10/22/24 04:00 Narrative Exam Gen: AAOx3, frail elderly male, pleasant to speak with HEENT: PERRLA, EOMI, MMM, significant periorbital bruising improving and laceration with stitches on head noted CVS: Holosystolic murmur appreciated at apex Resp: Mild wheeze bilaterally, with decreased breath sounds on right Abd: soft, non-tender, non-distended. BS+ in all 4 quadrants : Ball clamped, urine noted proximal to clamp MSK: Good ROM in BUE & BLE. No edema or rash. Neuro: CN II-XII grossly intact. Strength 5/5 in BUE & BLE. Discharge Plan Plan Patient Disposition: Home w/HOME HEALTH Patient condition on transfer: Stable Care Plan Goals: Follow-up with your primary care provider within 1 week of discharge. If your PCP does not have any appointments, you can follow-up at the [facility] ([phone]). Follow up with cardiology outpatient to monitor mitral regurgitation You have been prescribed Movantik and senna for your constipation. You can take 1 tablet of each daily, with a goal of 2?3 bowel movements per week. Continue physical therapy Continue your home medications as previously prescribed. Your benazepril was held as your blood pressure has been under control with carvedilol only. Follow-up with your primary care provider on when to resume your benazepril. Return to to the nearest ED if your symptoms return or worsen Prescriptions/Referrals Prescriptions/Med Rec: New Movantik 25 mg Tablet 25 mg PO QDAY 30 Days Qty: 30 0RF sennosides [Senna Lax] 8.6 mg Tablet 8.6 mg PO QDAY 30 Days Qty: 30 0RF Continued alprazolam 1 MG tablet 2 mg PO TID Qty: 0 Hold Instructions: Resume on 08/19/23. carvedilol 3.125 MG tablet 3.125 mg PO BID 30 Days Qty: 0 atorvastatin [Lipitor] 40 mg Tablet 40 mg PO QPM tizanidine 4 mg tablet 4 mg PO BID PRN (Reason: Spasms) Hold Instructions: Resume on 01/19/23. Patient Comments: TAKE ONE TABLET BY MOUTH TWICE DAILY NEEDED FOR MUSCLE SPASM clopidogrel 75 mg tablet 75 mg PO DAILY Hold Instructions: Resume on 08/29/22. Patient Comments: TAKE ONE TABLET BY MOUTH EVERY DAY hydrocodone-acetaminophen 10-325 mg tablet 1 tab PO QID PRN (Reason: Pain) Hold Instructions: Resume on 08/19/23. Patient Comments: TAKE ONE TABLET BY MOUTH EVERY 6 HOURS NEEDED FOR PAIN pantoprazole 40 mg Tablet,Delayed Release (Dr/Ec) 40 mg PO BID montelukast 10 mg Tablet 10 mg PO QPM gabapentin 300 mg capsule 300 mg PO BID Patient Comments: TAKE ONE CAPSULE BY MOUTH TWICE DAILY sumatriptan succinate [Imitrex] 100 mg Tablet 100 mg PO Q2H PRN (Reason: migraines) Rx Instructions: do not exceed 2 doses per 24 hrs fenofibrate nanocrystallized 145 mg tablet 145 mg PO QAM albuterol sulfate 90 mcg/actuation HFA aerosol inhaler 1 puff INHALATION Q6H PRN (Reason: Wheezing) ketoconazole 2 % shampoo 1 applic TOPICAL Q OTHER DAY PRN (Reason: Dry Skin) Arnuity Ellipta 200 mcg/actuation blister with device 1 inh INHALATION QDAY Patient Comments: INHALE 1 PUFF BY MOUTH EVERY DAY Held benazepril 40 mg tablet 40 mg PO BID Hold Instructions: Resume on 11/06/24. Holding as patient's BP has been well-controlled on coreg only. Follow up with PCP on when to resume Patient Comments: TAKE ONE TABLET BY MOUTH TWICE DAILY FOR BLOOD PRESSURE Referrals: Vaibhav Langston MD [Primary Care Provider] - Patient/Caregiver Discharge Instructions Discharge Activity: as per physical therapy Education Materials: Anemia, Acute Kidney Failure Dc, Understanding Sepsis Print Language: Indonesian Stand Alone Forms: [employer] Award Info., Patient Portal Info Letter Discharge Order Discharge Orders: Discharge (Routine); Ordered 10/23/24 Ordered By: Loyda Sanchez Quality Discharge Quality Measures VTE prophylaxis MD Attestestation MD Attestation I have discussed and was present for the essential components of the discharge history, physical examination, diagnosis, and discharge treatment plan with the resident. I agree with the patient's discharge care as documented by the resident and amended herein by me. Eladio Payne, DO. The patient understood all discharge instructions, all questions were answered satisfactorily. The patient was instructed to return to the Emergency Department is symptoms worsened or persisted. Patient was stable, afebrile, tolerating p.o. intake times discharge. Optimally, the patient would be discharged to SNF however the patient refused, requested home with home health, apparently his daughter is going to have him stay with her. Home health physical therapy ordered. Although this document has been carefully reviewed, there may still be some phonetic and other typographical errors. These errors are purely grammatical due to imperfections in the software program and should not be construed in any way to compromise the substance of the patient's medical care during this visit.
--- NOTE | 2024-10-23 18:02 | PC.CM ---
Entered pt. on [facility] for HH referral.
--- NOTE | 2024-10-23 19:21 | PC.NURSE ---
notified ,daughter January, concern about pt. safety going home,that pt. is not safe.,PT worked with pt. earlier,recommended rehab,pt.refused to go.discharge cancelled.daughter January and son talking to pt.about staying.
[2024-10-23] MEDS: ATORVASTATIN CALCIUM 20 MG TABLET 40 MG PO (20:36)
[2024-10-23] MEDS: SUMAtriptan 25 MG TABLET 100 MG PO (20:37)
[2024-10-24] VITALS (10 sets, daily range): BP systolic 102–127; BP diastolic 67–80; PULSE 65–83; RESP 12–93; TEMP 35.9–36.6; O2SAT 90–97; BMI 21.9
[2024-10-24] MEDS: HYDROcodone/APAP 5/325 TABLET 1 TAB PO ×3 (04:36→13:55)
--- NOTE | 2024-10-24 05:58 | PC.NURSE ---
Pt A&O x4, pt refused the bed alarm during this shift. Pt was educated about the importance of having the bed alarm on for his own safety but still refused. Pt shows moderate weakness, pt requested to use the restroom and was assisted to go but was unable to stand up long enough to start walking. Charge nurse and Dr. Pereyra were made aware about the pt's refusal. No new orders for pt at this time.
[2024-10-24] MEDS: PANTOPRAZOLE INJ 40 MG VIAL IVP (08:24)
[2024-10-24] MEDS: carVEDILOL 3.125 MG TABLET PO (08:25)
[2024-10-24] MEDS: MIRTAZAPINE 15 MG TABLET PO (08:25)
[2024-10-24] MEDS: tiZANidine HCL 2 MG TABLET 4 MG PO (08:25)
[2024-10-24] MEDS: Erythromycin Op Oint 0.5% 1 GM PACKET BOTH EYES (08:25)
[2024-10-24] MEDS: BusPIRone HCL 5 MG TABLET PO (08:25)
[2024-10-24] MEDS: CLOPIDOGREL BISULFATE 75 MG TABLET PO (08:25)
[2024-10-24] MEDS: GABAPENTIN 300 MG CAPSULE PO (08:25)
[2024-10-24] MEDS: SENNA TABLET 1 TAB PO (08:25)
[2024-10-24] MEDS: SUMAtriptan 25 MG TABLET 100 MG PO (08:26)
[2024-10-24] MEDS: LIDOCAINE 5% 1 PATCH TOP (08:26)
[2024-10-24] MEDS: NALOXEGOL OXALATE 25 MG TABLET (NON-FORMULARY) PO (08:26)
[2024-10-24] MEDS: ALPRazoLAM 0.25 MG TABLET 2 MG PO (09:16)
--- NOTE | 2024-10-24 10:46 | PC.SS ---
Follow up note: SS met with patient at bedside to discuss final d/c plans. D/c held yesterday because patient changed his mind and does not want to stay with his daughter. He wants to go home alone. However, patient is max assist. SS spoke to patient this morning and he is agreeable to a short stay at a SNF. He is agreeable to [facility]. Facility accepted and will take patient today. [facility] arranged for 4:30p.m. nursing states patient needs his stitches taken out prior to discharge. Reservation# [id number]
--- NOTE | 2024-10-24 10:58 | PD.RESDS ---
Planned Discharge Date 10/24/24 DS: Providers Provider Date of admission: 10/15/24 23:02 Primary care physician: Vaibhav Langston MD Admitting Provider: Frankie Myrick MD Attending Provider on Admission: William Payne DO Consults: 10/17/24 07:00 Referral Nutritional Services Routine Comment: laceration top of head. Referral Wound Care Routine Comment: Laceration top of head 10/17/24 09:23 Referral Physical Therapy Routine Comment: Physician Instructions: Referral Registered Dietitian Routine Comment: 10/19/24 07:30 Consult to Cardiology Routine Comment: Murmur, visible thrill Consulting Provider: Timmy Leo Attending Provider on DC: Loyda Sanchez MD Discharging Provider: Loyda Sanchez MD DS: Diagnosis Problem List Completed Was Problem List Reviewed/Reconciled?: Yes Hospital Course Hospital Course Hospital course: Patient was a 69-year-old male with history of CAD s/p CABG, HTN, HLD, asthma, BPH who was admitted to the ICU for septic shock, likely secondary to acute hypoxic respiratory failure secondary to hospital-acquired pneumonia. On presentation, patient's MAP was <65, LA peaked at 4.4, and patient required IV pressors. Chest imaging was concerning for a cavitary lesion, therefore testing for TB rule out was ordered. Patient was started on IV antibiotics at this time. Patient was recently admitted at [facility] after a traumatic head injury with thoracic and lumbar spine fractures. No neurosurgical intervention was needed. His pain was managed with morphine and [place]. TLSO brace was ordered. For constipation likely related to opioids, patient was started on bowel regimen including Movantik. Home meds for chronic conditions were resumed, with the exception of benazepril as BP was within normal limits while on Coreg only. AFB sputum's were sent x 3, with all 3 returning negative. QuantiFERON was negative. Additional problems that were treated/resolved/monitored included transaminitis, MATHIEU, conjunctivitis. Of note, systolic ejection murmur was appreciated and echo ordered to evaluate. Patient was noted to have mild mitral regurgitation, for which cardiology recommended follow-up outpatient. Patient was evaluated by physical therapy and SNF was strongly recommended, however patient adamantly refused, as his daughter would be primary caregiver. He initially was to be discharged on 10/23 with home health PT, however when daughter came to pick him up at bedside, she was concerned as patient was unable to stand. Discharge was canceled due to unsafe discharge. On 10/24, patient agreed for discharge to SNF. Sutures from cranial laceration were also removed. Return precautions were provided. #Septic shock, resolved #Acute hypoxic respiratory failure, resolved, secondary to #Hospital-acquired pneumonia #Multiloculated cavitary lesion #TB ruled out #Lactic acidosis, resolved #Leukocytosis, resolved #Systolic ejection murmur #Mild mitral regurgitation #Transaminitis, improved #MATHIEU, resolved #Normocytic normochromic anemia #History of recent head trauma, sutures removed #Acute thoracic and lumbar fractures #Opioid-induced constipation #History of CAD s/p CABG #HLD #Hypertension #Conjunctivitis, improved #History of migraines #Depression versus bereavement #Difficulty sleeping Patient seen and care discussed with my attending Dr. Payne. Loyda Sanchez MD PGY-3 Status at Discharge Cognitive/behavioral status at discharge: AAOx3 Time Spent with Patient Time attestation: Total time spent providing and/or coordinating discharge services: Time spent: Greater than 30 minutes Exam Vital Signs Temp Pulse Resp BP Pulse Ox O2 Del Method O2 Flow Rate 96.7 F L 80 12 127/76 97 Room Air 1 10/24/24 07:51 10/24/24 08:25 10/24/24 08:20 10/24/24 08:25 10/24/24 07:51 10/24/24 07:51 10/24/24 04:00 Narrative Exam Gen: AAOx3, frail elderly male, pleasant to speak with HEENT: PERRLA, EOMI, MMM, significant periorbital bruising improving and laceration, sutures were removed CVS: Holosystolic murmur appreciated at apex Resp: Mild wheeze bilaterally, with decreased breath sounds on right Abd: soft, non-tender, non-distended. BS+ in all 4 quadrants : Ball clamped, urine noted proximal to clamp MSK: Good ROM in BUE & BLE. No edema or rash. Neuro: CN II-XII grossly intact. Strength 5/5 in BUE & BLE. Discharge Plan Plan Patient Disposition: Xfer Skilled Nsg Fac (SNF) Disposition Comment: [facility] Patient condition on transfer: Stable Care Plan Goals: Follow-up with your primary care provider within 1 week of discharge. If your PCP does not have any appointments, you can follow-up at the [facility] ([phone]). Follow up with cardiology outpatient to monitor mitral regurgitation You have been prescribed Movantik and senna for your constipation. You can take 1 tablet of each daily, with a goal of 2?3 bowel movements per week. Continue physical therapy Continue your home medications as previously prescribed. Your benazepril was held as your blood pressure has been under control with carvedilol only. Follow-up with your primary care provider on when to resume your benazepril. Return to to the nearest ED if your symptoms return or worsen Prescriptions/Referrals Prescriptions/Med Rec: New Movantik 25 mg Tablet 25 mg PO QDAY 30 Days Qty: 30 0RF sennosides [Senna Lax] 8.6 mg Tablet 8.6 mg PO QDAY 30 Days Qty: 30 0RF Continued alprazolam 1 MG tablet 2 mg PO TID Qty: 0 Hold Instructions: Resume on 08/19/23. carvedilol 3.125 MG tablet 3.125 mg PO BID 30 Days Qty: 0 atorvastatin [Lipitor] 40 mg Tablet 40 mg PO QPM tizanidine 4 mg tablet 4 mg PO BID PRN (Reason: Spasms) Hold Instructions: Resume on 01/19/23. Patient Comments: TAKE ONE TABLET BY MOUTH TWICE DAILY NEEDED FOR MUSCLE SPASM clopidogrel 75 mg tablet 75 mg PO DAILY Hold Instructions: Resume on 08/29/22. Patient Comments: TAKE ONE TABLET BY MOUTH EVERY DAY hydrocodone-acetaminophen 10-325 mg tablet 1 tab PO QID PRN (Reason: Pain) Hold Instructions: Resume on 08/19/23. Patient Comments: TAKE ONE TABLET BY MOUTH EVERY 6 HOURS NEEDED FOR PAIN pantoprazole 40 mg Tablet,Delayed Release (Dr/Ec) 40 mg PO BID montelukast 10 mg Tablet 10 mg PO QPM gabapentin 300 mg capsule 300 mg PO BID Patient Comments: TAKE ONE CAPSULE BY MOUTH TWICE DAILY sumatriptan succinate [Imitrex] 100 mg Tablet 100 mg PO Q2H PRN (Reason: migraines) Rx Instructions: do not exceed 2 doses per 24 hrs fenofibrate nanocrystallized 145 mg tablet 145 mg PO QAM albuterol sulfate 90 mcg/actuation HFA aerosol inhaler 1 puff INHALATION Q6H PRN (Reason: Wheezing) ketoconazole 2 % shampoo 1 applic TOPICAL Q OTHER DAY PRN (Reason: Dry Skin) Arnuity Ellipta 200 mcg/actuation blister with device 1 inh INHALATION QDAY Patient Comments: INHALE 1 PUFF BY MOUTH EVERY DAY Held benazepril 40 mg tablet 40 mg PO BID Hold Instructions: Resume on 11/06/24. Holding as patient's BP has been well-controlled on coreg only. Follow up with PCP on when to resume Patient Comments: TAKE ONE TABLET BY MOUTH TWICE DAILY FOR BLOOD PRESSURE Referrals: Vaibhav Langston MD [Primary Care Provider] - Patient/Caregiver Discharge Instructions Discharge Activity: as per physical therapy Other Discharge Diet Instructions: wash open area on top of head with wound cleanser,apply triple antibiotic,alginate,cover with allevyn,change daily. Education Materials: Anemia, Acute Kidney Failure Dc, Understanding Sepsis Print Language: German Stand Alone Forms: [employer] Award Info., Patient Portal Info Letter Discharge Order Discharge Orders: Discharge (Routine); Ordered 10/24/24 Ordered By: Loyda Sanchez Quality Discharge Quality Measures VTE prophylaxis MD Attestestation MD Attestation I have discussed and was present for the essential components of the discharge history, physical examination, diagnosis, and discharge treatment plan with the resident. I agree with the patient's discharge care as documented by the resident and amended herein by me. Eladio Payne DO. The patient understood all discharge instructions, all questions were answered satisfactorily. The patient was instructed to return to the Emergency Department is symptoms worsened or persisted. Patient was stable, afebrile, tolerating p.o. intake and only ambulatory with assistance at time of discharge to SNF for further rehabilitation. Although this document has been carefully reviewed, there may still be some phonetic and other typographical errors. These errors are purely grammatical due to imperfections in the software program and should not be construed in any way to compromise the substance of the patient's medical care during this visit.
--- NOTE | 2024-10-25 07:02 | PC.CM ---
Addendum entered by Cesar Singh RN 10/25/24 08:16: I reviewed pt chart and found pt is discharged to SNF. HH referral is canceled. Addendum entered by Cesar Singh RN 10/25/24 08:07: [facility] pt. Booked them. Start of care date is 10/26/24. Original Note: Home health packet sent to via [facility], awaiting responses at this time.
== END 2024-10-24 16:45 | disposition skilled nursing facility (03) | DRG 871 ==
LOC: SERX 21:04 → SERHOLD 23:10 → S2SX 10-16 03:36 → S2NX 10-20 13:21 → S2SX 10-23 12:18
PROVIDERS: Emergency Medicine; Student in an Organized Health Care Education/Training Program; Admitting Provider Student in an Organized Health Care Education/Training Program; Emergency Provider Emergency Medicine; PCP Family Medicine; Visit Provider Student in an Organized Health Care Education/Training Program
DX: A41.9 Sepsis, unspecified organism (principal); J15.9 Unspecified bacterial pneumonia; R65.21 Severe sepsis with septic shock; J96.01 Acute respiratory failure with hypoxia; N17.9 Acute kidney failure, unspecified; S22.059A Unspecified fracture of T5-T6 vertebra, initial encounter for closed fracture; E87.20 Acidosis, unspecified; J44.0 Chronic obstructive pulmonary disease with (acute) lower respiratory infection; S22.019A Unspecified fracture of first thoracic vertebra, initial encounter for closed fracture; S22.029A Unspecified fracture of second thoracic vertebra, initial encounter for closed fracture; S32.019A Unspecified fracture of first lumbar vertebra, initial encounter for closed fracture; S32.029A Unspecified fracture of second lumbar vertebra, initial encounter for closed fracture; I25.10 Atherosclerotic heart disease of native coronary artery without angina pectoris; I10 Essential (primary) hypertension; K59.03 Drug induced constipation; T40.2X5A Adverse effect of other opioids, initial encounter; D64.9 Anemia, unspecified; F41.9 Anxiety disorder, unspecified; G47.00 Insomnia, unspecified; H10.89 Other conjunctivitis; I34.0 Nonrheumatic mitral (valve) insufficiency; E78.00 Pure hypercholesterolemia, unspecified; S01.01XA Laceration without foreign body of scalp, initial encounter; S00.12XA Contusion of left eyelid and periocular area, initial encounter; S00.11XA Contusion of right eyelid and periocular area, initial encounter; F32.A Depression, unspecified; R91.1 Solitary pulmonary nodule; J43.9 Emphysema, unspecified; I25.2 Old myocardial infarction; I71.21 Aneurysm of the ascending aorta, without rupture; Y95 Nosocomial condition; Z95.1 Presence of aortocoronary bypass graft; Z63.4 Disappearance and death of family member; Z78.9 Other specified health status; Z79.899 Other long term (current) drug therapy; Z79.02 Long term (current) use of antithrombotics/antiplatelets; W19.XXXA Unspecified fall, initial encounter; Y92.230 Patient room in hospital as the place of occurrence of the external cause
CPT/HCPCS: 36415; 36600; 70450; 70486; 71045; 71275; 72125; 74177; 80053; 80307; 80320; 81001; 82010; 82803; 83605; 83735; 83880; 84100; 84145; 84484; 85014; 85018; 85025; 85379; 85610; 85730; 86331; 86480; 86635; 86850; 86900; 86901; 87015; 87040; 87081; 87086; 87116; 87206; 87305; 87502; 87634; 87811; 89220; 93005; 93306; 94640; 96360; 96361; 96365; 96366; 96367; 96374; 96375; 97162; 99291; A4649; A9270; J0692; J0696; J1450; J2270; J2354; J2405; J2470; J3490; J7030; J7050; J7120; Q9967; G0480